=== PATIENT | female | born 1955 | race Caucasian/White ===

== ENCOUNTER 2016-05-06 18:29 | Emergency (ER) | payer OTHER ==
[~2016-05-06] VITALS: Wt 52.2 kg
[~2016-05-06 18:29] MED LIST: ACYCLOVIR400 MG PO; ADALAT CC30 MG PO; ADOXA100 MG PO; ALBUTEROL2.5 MG/0.5 INH; AMBIEN10 MG PO; ANAPROX DS550 MG PO; ASPIRIN ADULT L81 M1 PO; AUGMENTIN 875 M1 TAB PO; AUGMENTIN 875875 MG PO; BACTROBAN OINT22 GM PO; BONIVA150 MG PO; CELEBREX200 MG PO; CELEXA10 MG PO; CELEXA20 MG PO; CLARITIN10 MG PO; CLEOCIN150 MG PO; COMBIVENT1 ARO IH; DARVOCET N 1001 TAB PO; DAYPRO600 M1 PO; DILANTIN100 MG PO; DUONEB 3 MG/3 ML3 M1 INH; DURAGESIC50 MCG/HR; FLAGYL500 MG PO; FLEXERIL10 MG PO; FLEXERIL5 MG PO; HYDROCODONE BIT1 T11 PO; IBU800 MG PO; INTRON A IJ; INTRON A SC; K-DUR 20MEQ20 MEQ PO; K-DUR20 MEQ PO; KEFLEX500 MG PO; KLONOPIN0.5 MG; KLONOPIN0.5 MG PO; KLONOPIN1 MG PO; LAMICTAL25 MG PO; LEXAPRO10 MG PO; LEXAPRO20 MG PO; LIDODERM 5% PATC1 EA ID; LOMOTIL 0.025 M1 TA1 PO; MACROBID100 M1 PO; MEDROL DOSEPAK4 MG PO; MEGACE 40400 MG/10 PO; MEGACE40 MG/ML PO; MORPHINE SULFATE PO; MOTRIN800 MG PO; MS CONTIN15 MG PO; MS CONTIN30 MG PO; MYCOLOG CREAM 115 GM T; Miralax Powder255 GM PO; Motrin,Rufen800 MG PO; NAPROSYN500 MG PO; NEURONTIN300 MG PO; NEURONTIN600 MG PO; OYSCO 500 + D 51 TAB PO; Orphenadrine C100 MG PO; PEN-VEE K500 MG PO; PENICILLIN VK500 MG PO; PERCOCET 325 MG1 TA2 PO; PERCOCET 325 MG1 TA3 PO; PERCOCET 325 MG1 TA7 PO; PERCOCET 325 MG1 TAB PO; PREDNISONE10 MG PO; PREDNISONE20 MG PO; PROAIR HFA0.09 MG/AC IH; PROTONIX40 MG PO; PYRIDIUM200 M1 PO; Peridex 473 ML473 ML PO; Phenergan25 MG PO; ROBITUSSIN AC 10 MG/ PO; SYMBICORT1 AE1 IH; TORADOL10 MG PO; TRAMADOL HCL50 MG PO; VALIUM10 MG PO; VIBRAMYCIN100 MG PO; VICODIN 5/500 505 MG PO; VISTARIL25 M1 PO; XANAX0.5 MG PO; XANAX1 MG PO; ZOFRAN ODT4 MG PO; ZOFRAN ODT4 MG SL; Zofran4 MG PO; [UNRECOGNIZED DRUG - OTHER] IM
[2016-05-06 19:13] LABS: BASO % 0.5 % (0.0-1.0); EOS # 0.1 10*3/uL (0.0-0.4); EOS % 0.9 % (1.0-4.0); HEMATOCRIT 35.3 % (37.0-47.0); HEMOGLOBIN 11.8 g/dl (12.0-16.0); LYMPH # 1.9 10*3/uL (1.3-4.4); LYMPH % 29.9 % (27.0-41.0); MEAN CELL VOLUME 92.9 fl (81.0-99.0); MEAN CORPUSCULAR HGB 31.1 pg (27.0-31.0); MEAN CORPUSCULAR HGB CONC 33.4 g/dl (33.0-37.0); MEAN PLATELET VOLUME 9.8 fl (9.6-12.3); MONO # 0.5 10*3/uL (0.1-1.0); MONO % 7.5 % (3.0-9.0); NEUT # 3.9 10*3/uL (2.3-7.9); PLATELET COUNT AUTOMATED 200 10*3/uL (130-400); RED CELL DISTRI WIDTH 13.2 % (0-14.5); WHITE BLOOD COUNT 6.4 10*3/uL (4.8-10.8)
[2016-05-06 19:30] LABS: ALBUMIN 3.7 gm/dl (3.1-4.5); ALKALINE PHOSPHATASE 54 U/L (45-117); BILIRUBIN, TOTAL 0.4 mg/dl (0.2-1.0); BUN 11 mg/dl (7-24); CARBON DIOXIDE 25 mmol/L (21-32); CHLORIDE 105 mmol/L (98-107); EST GLOM FILT AFRICAN AMERICAN > 60 ml/min; GLUCOSE 95 mg/dL (65-99); POTASSIUM 3.6 mmol/L (3.5-5.1); SGOT/AST 16 IU/L (3-35); SGPT/ALT 19 U/L (12-78); SODIUM 140 mmol/L (136-145); TOTAL PROTEIN 7.2 gm/dL (6.4-8.2); TROPONIN I 0.018 ng/ml (<0.5)
[2016-05-06 19:33] LABS: C-REACTIVE PROTEIN < 0.29 MG/DL (0-0.3)
[2016-05-06 20:26] VITALS: BP 162/77
[2016-05-06] MEDS ORDERED: MINIPRESS1 M1 PO (20:29)
[2016-05-06] MEDS ORDERED: CYCLOBENZAPRINE10 MG PO (20:29)
[2016-05-31] MEDS ORDERED: CLINDAMYCIN HC300 MG PO (18:02)
[2016-05-31] MEDS ORDERED: HYDROCODONE BIT1 T11 PO (18:18)
== END 2016-05-06 21:52 | disposition home or self-care (01) ==
LOC: ED 18:29
PROVIDERS: Emergency Medicine Emergency Medical Services
DX: R13.10 Dysphagia, unspecified (principal); F41.9 Anxiety disorder, unspecified; J44.9 Chronic obstructive pulmonary disease, unspecified; F32.9 Major depressive disorder, single episode, unspecified; M81.0 Age-related osteoporosis without current pathological fracture; F17.200 Nicotine dependence, unspecified, uncomplicated; Z98.890 Other specified postprocedural states; Z90.49 Acquired absence of other specified parts of digestive tract; Z90.710 Acquired absence of both cervix and uterus; Z87.19 Personal history of other diseases of the digestive system; Z86.19 Personal history of other infectious and parasitic diseases; Z91.012 Allergy to eggs; Z91.041 Radiographic dye allergy status; Z88.1 Allergy status to other antibiotic agents; Z88.6 Allergy status to analgesic agent; Z88.8 Allergy status to other drugs, medicaments and biological substances; Z85.818 Personal history of malignant neoplasm of other sites of lip, oral cavity, and pharynx; Z88.7 Allergy status to serum and vaccine

== ENCOUNTER → 2016-05-10 | Outpatient (CLI) | payer OTHER ==
[~2016-05-10] MED LIST changes: +CLINDAMYCIN HC300 MG PO; +CYCLOBENZAPRINE10 MG PO; +MINIPRESS1 M1 PO
[2016-05-10 12:58] LABS: BASO % 0.4 % (0.0-1.0); EOS # 0.1 10*3/uL (0.0-0.4); EOS % 1.8 % (1.0-4.0); HEMATOCRIT 37.2 % (37.0-47.0); HEMOGLOBIN 12.4 g/dl (12.0-16.0); LYMPH # 1.5 10*3/uL (1.3-4.4); LYMPH % 30.3 % (27.0-41.0); MEAN CELL VOLUME 92.3 fl (81.0-99.0); MEAN CORPUSCULAR HGB 30.8 pg (27.0-31.0); MEAN CORPUSCULAR HGB CONC 33.3 g/dl (33.0-37.0); MEAN PLATELET VOLUME 9.8 fl (9.6-12.3); MONO # 0.7 10*3/uL (0.1-1.0); MONO % 13.1 % (3.0-9.0); NEUT # 2.7 10*3/uL (2.3-7.9); NEUT % 54.2 % (47.0-73.0); PLATELET COUNT AUTOMATED 247 10*3/uL (130-400); RED BLOOD COUNT 4.03 10*6/uL (4.10-5.10); RED CELL DISTRI WIDTH 13.3 % (0-14.5)
[2016-05-10 13:34] LABS: ALBUMIN 3.6 gm/dl (3.1-4.5); ALKALINE PHOSPHATASE 60 U/L (45-117); BILIRUBIN, TOTAL 0.2 mg/dl (0.2-1.0); BUN 10 mg/dl (7-24); CARBON DIOXIDE 28 mmol/L (21-32); CHLORIDE 106 mmol/L (98-107); CHOLESTEROL 133 mg/dL (<200); EST GLOM FILT AFRICAN AMERICAN > 60 ml/min; GLUCOSE 98 mg/dL (65-99); HDL CHOLESTEROL 72 mg/dl (40-60); LDL CHOLESTEROL 31 mg/dL (9-159); POTASSIUM 3.8 mmol/L (3.5-5.1); SGOT/AST 21 IU/L (3-35); SGPT/ALT 19 U/L (12-78); SODIUM 140 mmol/L (136-145); THYROID STIM HORMONE (HS) 0.774 uIU/ml (0.358-4.75); TOTAL PROTEIN 6.8 gm/dL (6.4-8.2); TRIGLYCERIDES 148 mg/dl (<150); VLDL CHOLESTEROL 30 mg/dL (6-40)
== END | disposition home or self-care (01) ==
LOC: LAB 12:14
PROVIDERS: Internal Medicine
DX: C43.59 Malignant melanoma of other part of trunk (principal); B18.2 Chronic viral hepatitis C; I10 Essential (primary) hypertension; F31.32 Bipolar disorder, current episode depressed, moderate

== ENCOUNTER → 2016-08-15 | Outpatient (CLI) | payer OTHER | END | disposition home or self-care (01) | LOC: MRI 08:41 | DX: M48.07 Spinal stenosis, lumbosacral region (principal); M51.27 Other intervertebral disc displacement, lumbosacral region; M12.88 Other specific arthropathies, not elsewhere classified, other specified site; M54.16 Radiculopathy, lumbar region; Z85.820 Personal history of malignant melanoma of skin ==

== ENCOUNTER 2016-08-18 15:47 | Emergency (ER) | payer OTHER ==
[~2016-08-18] VITALS: Ht 160 cm; Wt 55.3 kg
[2016-08-18 16:00] VITALS: BP 129/73
[2016-08-18] MEDS ORDERED: ROBITUSSIN AC 110 ML PO (16:16)
[2016-08-18] MEDS ORDERED: PREDNISONE10 MG PO (16:16)
[2016-08-18] MEDS ORDERED: CLARITIN10 MG PO (16:16)
[2016-08-18] MEDS ORDERED: FLONASE ALLERG9.9 ML NAS (16:16)
== END 2016-08-18 17:02 | disposition home or self-care (01) ==
LOC: ED 15:47
DX: B34.9 Viral infection, unspecified (principal); R03.0 Elevated blood-pressure reading, without diagnosis of hypertension; F12.10 Cannabis abuse, uncomplicated; F17.200 Nicotine dependence, unspecified, uncomplicated; F32.9 Major depressive disorder, single episode, unspecified; Z90.49 Acquired absence of other specified parts of digestive tract; F41.9 Anxiety disorder, unspecified; Z88.1 Allergy status to other antibiotic agents; Z88.7 Allergy status to serum and vaccine; Z91.012 Allergy to eggs; Z91.041 Radiographic dye allergy status

== ENCOUNTER 2016-09-08 10:15 | Emergency (ER) | payer OTHER ==
[~2016-09-08] VITALS: Wt 54.4 kg
[~2016-09-08 10:15] MED LIST changes: +FLONASE ALLERG9.9 ML NAS; +ROBITUSSIN AC 110 ML PO
[2016-09-08 10:23] VITALS: BP 123/73
[2016-09-08] MEDS ORDERED: Motrin,Rufen800 MG PO (12:24)
== END 2016-09-08 12:28 | disposition home or self-care (01) ==
LOC: ED 10:15
DX: S46.912A Strain of unspecified muscle, fascia and tendon at shoulder and upper arm level, left arm, initial encounter (principal); F17.200 Nicotine dependence, unspecified, uncomplicated; F41.9 Anxiety disorder, unspecified; F32.9 Major depressive disorder, single episode, unspecified; G40.909 Epilepsy, unspecified, not intractable, without status epilepticus; Z90.49 Acquired absence of other specified parts of digestive tract; Z90.710 Acquired absence of both cervix and uterus; Z98.890 Other specified postprocedural states; Z79.899 Other long term (current) drug therapy; Z91.041 Radiographic dye allergy status; Z91.012 Allergy to eggs; Z88.1 Allergy status to other antibiotic agents; Z88.7 Allergy status to serum and vaccine; W19.XXXA Unspecified fall, initial encounter; Y93.89 Activity, other specified; Y92.89 Other specified places as the place of occurrence of the external cause; Y99.9 Unspecified external cause status

== ENCOUNTER 2016-11-01 14:33 | Emergency (ER) | payer OTHER ==
[~2016-11-01] VITALS: Ht 160 cm
[2016-11-01 15:17] LABS: BILIRUBIN NEGATIVE (NEGATIVE); BLOOD NEGATIVE (NEGATIVE); CLARITY CLEAR (CLEAR); COLOR YELLOW (YELLOW); GLUCOSE NEGATIVE (NEGATIVE); KETONE NEGATIVE (NEGATIVE); LEUKO ESTERASE TRACE (NEGATIVE); NITRITE NEGATIVE (NEGATIVE); PROTEIN NEGATIVE (NEGATIVE); SPECIFIC GRAVITY 1.015 (1.005-1.030); UROBILINOGEN 0.2 E.U./dl (0.2-1.0)
[2016-11-01 15:19] LABS: BASO % 0.3 % (0.0-1.0); EOS # 0.1 10*3/uL (0.0-0.4); EOS % 1.2 % (1.0-4.0); HEMATOCRIT 41.8 % (37.0-47.0); HEMOGLOBIN 13.9 g/dl (12.0-16.0); LYMPH # 1.9 10*3/uL (1.3-4.4); LYMPH % 28.6 % (27.0-41.0); MEAN CELL VOLUME 90.5 fl (81.0-99.0); MEAN CORPUSCULAR HGB 30.1 pg (27.0-31.0); MEAN CORPUSCULAR HGB CONC 33.3 g/dl (33.0-37.0); MEAN PLATELET VOLUME 10.4 fl (9.6-12.3); MONO # 0.6 10*3/uL (0.1-1.0); MONO % 8.1 % (3.0-9.0); NEUT # 4.2 10*3/uL (2.3-7.9); NEUT % 61.5 % (47.0-73.0); PLATELET COUNT AUTOMATED 238 10*3/uL (130-400); RED BLOOD COUNT 4.62 10*6/uL (4.10-5.10); RED CELL DISTRI WIDTH 13.2 % (0-14.5); WHITE BLOOD COUNT 6.8 10*3/uL (4.8-10.8)
[2016-11-01 15:23] LABS: URINE AMPHETAMINES < 1000 (1000ng/ml); URINE BARBITURATES < 200 (200ng/ml); URINE COCAINE > 300 (300ng/ml)
[2016-11-01 15:27] LABS: INTERNATIONAL NORM RATIO 1.1 (2.0-3.5); PROTHROMBIN TIME 11.4 SECONDS (9.0-12.4)
[2016-11-01 15:31] VITALS: BP 151/71
[2016-11-01 15:35] LABS: ALBUMIN 3.8 gm/dl (3.1-4.5); ALKALINE PHOSPHATASE 62 U/L (45-117); BILIRUBIN, TOTAL 0.3 mg/dl (0.2-1.0); BUN 15 mg/dl (7-24); CARBON DIOXIDE 28 mmol/L (21-32); CHLORIDE 104 mmol/L (98-107); EST GLOM FILT AFRICAN AMERICAN > 60 ml/min; GLUCOSE 94 mg/dL (65-99); MAGNESIUM 2.2 mg/dL (1.5-2.1); POTASSIUM 3.3 mmol/L (3.5-5.1); SGOT/AST 14 IU/L (3-35); SGPT/ALT 16 U/L (12-78); SODIUM 142 mmol/L (136-145); TOTAL PROTEIN 6.9 gm/dL (6.4-8.2); TROPONIN I 0.021 ng/ml (<0.045)
[2016-11-01 15:37] LABS: RBC 0-2 rbc/hpf (0-2)
[2016-11-01 15:38] LABS: BACTERIA 1+; URINE REFLEX COMMENT YES (NO)
== END 2016-11-01 15:57 | disposition short-term general hospital (02) ==
LOC: ED 14:33
PROVIDERS: Nurse Practitioner Family
DX: I21.3 ST elevation (STEMI) myocardial infarction of unspecified site (principal); M81.0 Age-related osteoporosis without current pathological fracture; J44.9 Chronic obstructive pulmonary disease, unspecified; G40.909 Epilepsy, unspecified, not intractable, without status epilepticus; F14.10 Cocaine abuse, uncomplicated; F12.10 Cannabis abuse, uncomplicated; F17.200 Nicotine dependence, unspecified, uncomplicated; Z91.041 Radiographic dye allergy status; Z91.012 Allergy to eggs; Z88.7 Allergy status to serum and vaccine; Z88.6 Allergy status to analgesic agent; Z88.1 Allergy status to other antibiotic agents; Z88.8 Allergy status to other drugs, medicaments and biological substances; Z79.899 Other long term (current) drug therapy; Z86.19 Personal history of other infectious and parasitic diseases; Z90.49 Acquired absence of other specified parts of digestive tract; Z90.710 Acquired absence of both cervix and uterus; Z98.890 Other specified postprocedural states

== ENCOUNTER 2016-12-04 18:04 | Emergency (ER) | payer OTHER ==
[~2016-12-04] VITALS: Ht 160 cm; Wt 54.4 kg
[2016-12-04 18:27] LABS: BASO # 0.1 10*3/uL (0.0-0.1); BASO % 0.7 % (0.0-1.0); EOS # 0.1 10*3/uL (0.0-0.4); EOS % 1.1 % (1.0-4.0); HEMATOCRIT 48.5 % (37.0-47.0); HEMOGLOBIN 16.1 g/dl (12.0-16.0); LYMPH # 2.1 10*3/uL (1.3-4.4); LYMPH % 30.4 % (27.0-41.0); MEAN CELL VOLUME 91.2 fl (81.0-99.0); MEAN CORPUSCULAR HGB 30.3 pg (27.0-31.0); MEAN CORPUSCULAR HGB CONC 33.2 g/dl (33.0-37.0); MEAN PLATELET VOLUME 10.2 fl (9.6-12.3); MONO # 0.5 10*3/uL (0.1-1.0); MONO % 7.2 % (3.0-9.0); NEUT # 4.3 10*3/uL (2.3-7.9); NEUT % 60.5 % (47.0-73.0); PLATELET COUNT AUTOMATED 213 10*3/uL (130-400); RED BLOOD COUNT 5.32 10*6/uL (4.10-5.10); RED CELL DISTRI WIDTH 13.2 % (0-14.5)
[2016-12-04 18:36] LABS: INTERNATIONAL NORM RATIO 1.1 (2.0-3.5); PROTHROMBIN TIME 11.4 SECONDS (9.0-12.4)
[2016-12-04 18:44] LABS: ALBUMIN 4.1 gm/dl (3.1-4.5); ALKALINE PHOSPHATASE 76 U/L (45-117); BILIRUBIN, TOTAL 0.4 mg/dl (0.2-1.0); BUN 12 mg/dl (7-24); CARBON DIOXIDE 25 mmol/L (21-32); CHLORIDE 105 mmol/L (98-107); EST GLOM FILT AFRICAN AMERICAN > 60 ml/min; GLUCOSE 88 mg/dL (65-99); MAGNESIUM 2.1 mg/dL (1.5-2.1); POTASSIUM 3.5 mmol/L (3.5-5.1); SGOT/AST 13 IU/L (3-35); SGPT/ALT 23 U/L (12-78); SODIUM 140 mmol/L (136-145); TOTAL PROTEIN 8.2 gm/dL (6.4-8.2)
[2016-12-04 18:45] LABS: TROPONIN I < 0.015 ng/ml (<0.045)
[2016-12-04 21:20] VITALS: BP 141/65
== END 2016-12-04 21:14 | disposition short-term general hospital (02) ==
LOC: ED 18:04
PROVIDERS: Emergency Medicine
DX: R07.89 Other chest pain (principal); F14.10 Cocaine abuse, uncomplicated; F12.10 Cannabis abuse, uncomplicated; Z90.49 Acquired absence of other specified parts of digestive tract; Z98.890 Other specified postprocedural states; Z90.710 Acquired absence of both cervix and uterus; Z79.899 Other long term (current) drug therapy; Z91.012 Allergy to eggs; Z88.7 Allergy status to serum and vaccine; Z88.1 Allergy status to other antibiotic agents; Z91.041 Radiographic dye allergy status

== ENCOUNTER 2017-05-07 02:43 | Emergency (ER) | payer MEDICAID ==
[2017-05-07] VITALS (12 sets, daily range): BP systolic 90–119; BP diastolic 36–58
[~2017-05-07] VITALS: Wt 59.0 kg
[2017-05-07 02:58] LABS: BASO % 0.5 % (0.0-1.0); EOS # 0.1 10*3/uL (0.0-0.4); EOS % 0.6 % (1.0-4.0); HEMATOCRIT 42.9 % (37.0-47.0); HEMOGLOBIN 14.1 g/dl (12.0-16.0); LYMPH # 2.1 10*3/uL (1.3-4.4); LYMPH % 24.2 % (27.0-41.0); MEAN CELL VOLUME 90.7 fl (81.0-99.0); MEAN CORPUSCULAR HGB 29.8 pg (27.0-31.0); MEAN CORPUSCULAR HGB CONC 32.9 g/dl (33.0-37.0); MONO # 0.7 10*3/uL (0.1-1.0); MONO % 7.9 % (3.0-9.0); NEUT # 5.8 10*3/uL (2.3-7.9); NEUT % 66.6 % (47.0-73.0); PLATELET COUNT AUTOMATED 231 10*3/uL (130-400); RED BLOOD COUNT 4.73 10*6/uL (4.10-5.10); RED CELL DISTRI WIDTH 13.6 % (0-14.5); WHITE BLOOD COUNT 8.6 10*3/uL (4.8-10.8)
[2017-05-07 03:08] LABS: ACT PARTIAL THROMBO TIME 27.5 SECONDS (20.8-31.5)
[2017-05-07 03:21] LABS: ALBUMIN 3.6 gm/dl (3.1-4.5); ALKALINE PHOSPHATASE 57 U/L (45-117); BUN 20 mg/dl (7-24); CHLORIDE 105 mmol/L (98-107); POTASSIUM 3.5 mmol/L (3.5-5.1); SGOT/AST 14 IU/L (3-35); SGPT/ALT 18 U/L (12-78); SODIUM 140 mmol/L (136-145); TOTAL PROTEIN 6.9 gm/dL (6.4-8.2)
[2017-05-07 03:22] LABS: TROPONIN I 0.019 ng/ml (<0.045)
[2017-05-07 04:28] LABS: BILIRUBIN NEGATIVE (NEGATIVE); BLOOD NEGATIVE (NEGATIVE); CLARITY CLEAR (CLEAR); COLOR YELLOW (YELLOW); GLUCOSE NEGATIVE (NEGATIVE); KETONE NEGATIVE (NEGATIVE); LEUKO ESTERASE NEGATIVE (NEGATIVE); NITRITE NEGATIVE (NEGATIVE); SPECIFIC GRAVITY 1.025 (1.005-1.030); UROBILINOGEN 0.2 E.U./dl (0.2-1.0)
[2017-05-07 04:36] LABS: URINE AMPHETAMINES < 1000 (1000ng/ml); URINE BARBITURATES < 200 (200ng/ml); URINE BENZODIAZEPINES < 200 (200ng/ml); URINE CANNABINOIDS (THC) > 50 (50ng/ml); URINE COCAINE > 300 (300ng/ml); URINE METHADONE < 300 (300ng/ml); URINE OPIATES < 300 (300ng/ml)
[2017-05-07 04:43] LABS: URINE PHENCYCLIDINE < 25 (25ng/ml)
== END 2017-05-07 09:47 | disposition short-term general hospital (02) ==
LOC: ED 02:43 → EDHOLD 05:08 → ED 05:08 → ICCU 05:08 → EDHOLD 05:18 → ED 09:47
PROVIDERS: Student in an Organized Health Care Education/Training Program
DX: R07.9 Chest pain, unspecified (principal); I95.9 Hypotension, unspecified; F41.9 Anxiety disorder, unspecified; J44.1 Chronic obstructive pulmonary disease with (acute) exacerbation; F32.9 Major depressive disorder, single episode, unspecified; Z86.19 Personal history of other infectious and parasitic diseases; G40.909 Epilepsy, unspecified, not intractable, without status epilepticus; F12.10 Cannabis abuse, uncomplicated; F17.200 Nicotine dependence, unspecified, uncomplicated; Z90.49 Acquired absence of other specified parts of digestive tract; Z90.710 Acquired absence of both cervix and uterus; Z91.041 Radiographic dye allergy status; Z91.012 Allergy to eggs; Z88.1 Allergy status to other antibiotic agents; Z88.5 Allergy status to narcotic agent; Z88.8 Allergy status to other drugs, medicaments and biological substances; Z79.899 Other long term (current) drug therapy

== ENCOUNTER 2017-06-03 18:36 | Emergency (ER) | payer MEDICAID ==
[~2017-06-03] VITALS: Wt 59.0 kg
[2017-06-03 18:52] VITALS: BP 151/79
== END 2017-06-03 20:34 | disposition home or self-care (01) ==
LOC: ED 18:36
DX: S90.31XA Contusion of right foot, initial encounter (principal); F17.200 Nicotine dependence, unspecified, uncomplicated; Z91.041 Radiographic dye allergy status; Z91.012 Allergy to eggs; Z88.7 Allergy status to serum and vaccine; Z88.6 Allergy status to analgesic agent; Z88.1 Allergy status to other antibiotic agents; Z79.899 Other long term (current) drug therapy; W22.8XXA Striking against or struck by other objects, initial encounter; Y93.89 Activity, other specified; Y92.89 Other specified places as the place of occurrence of the external cause; Y99.8 Other external cause status

== ENCOUNTER → 2018-01-07 | Outpatient (CLI) | payer OTHER ==
[~2018-01-07] MED LIST changes: +'CLONIDINE0.1 MG PO; +AMITRIPTYLINE25 MG PO; +AVPAK EXTENDED100 M1 PO; +PERCOCET 5-3251 EACH PO; +Percocet 325 MG1 TAB PO; +REXULTI4 MG PO; +VITAMIN D5000 UNI1 PO; +ZOFRAN4 MG PO
== END | disposition home or self-care (01) ==
LOC: ORTHO 00:16
DX: S52.021D Displaced fracture of olecranon process without intraarticular extension of right ulna, subsequent encounter for closed fracture with routine healing (principal); M19.031 Primary osteoarthritis, right wrist; X58.XXXD Exposure to other specified factors, subsequent encounter; Z98.890 Other specified postprocedural states

== ENCOUNTER → 2018-01-15 | Outpatient (CLI) | payer OTHER | END | disposition home or self-care (01) | LOC: ORTHO 00:20 | DX: Z47.89 Encounter for other orthopedic aftercare (principal); S52.021D Displaced fracture of olecranon process without intraarticular extension of right ulna, subsequent encounter for closed fracture with routine healing; X58.XXXD Exposure to other specified factors, subsequent encounter ==

== ENCOUNTER → 2018-01-22 | Outpatient (CLI) | payer OTHER | END | disposition home or self-care (01) | LOC: ORTHO 12:19 | DX: S52.021D Displaced fracture of olecranon process without intraarticular extension of right ulna, subsequent encounter for closed fracture with routine healing (principal); X58.XXXD Exposure to other specified factors, subsequent encounter ==

== ENCOUNTER 2018-01-25 13:11 | Emergency (ER) | payer OTHER ==
[~2018-01-25 13:11] MED LIST changes: -PERCOCET 5-3251 EACH PO
[2018-01-25 13:46] LABS: BASO % 0.6 % (0.0-1.0); EOS # 0.2 10*3/uL (0.0-0.4); EOS % 2.3 % (1.0-4.0); HEMATOCRIT 36.4 % (37.0-47.0); HEMOGLOBIN 12.1 g/dl (12.0-16.0); LYMPH % 30.7 % (27.0-41.0); MEAN CELL VOLUME 94.1 fl (81.0-99.0); MEAN CORPUSCULAR HGB 31.3 pg (27.0-31.0); MEAN CORPUSCULAR HGB CONC 33.2 g/dl (33.0-37.0); MEAN PLATELET VOLUME 9.4 fl (9.6-12.3); MONO # 0.5 10*3/uL (0.1-1.0); MONO % 7.6 % (3.0-9.0); NEUT # 3.8 10*3/uL (2.3-7.9); NEUT % 58.5 % (47.0-73.0); PLATELET COUNT AUTOMATED 214 10*3/uL (130-400); RED BLOOD COUNT 3.87 10*6/uL (4.10-5.10); WHITE BLOOD COUNT 6.6 10*3/uL (4.8-10.8)
[2018-01-25 13:56] LABS: ACT PARTIAL THROMBO TIME 25.6 SECONDS (20.8-31.5)
[2018-01-25 13:57] LABS: BUN 16 mg/dl (7-24); CHLORIDE 107 mmol/L (98-107); CREATININE 0.66 mg/dL (0.55-1.02); POTASSIUM 3.8 mmol/L (3.5-5.1); SODIUM 140 mmol/L (136-145)
[2018-01-25] MEDS ORDERED: NAPROSYN500 MG PO (14:43)
[2018-03-08] MEDS ORDERED: PERCOCET 5-3251 EACH PO (09:31)
== END 2018-01-25 14:49 | disposition home or self-care (01) ==
LOC: ED 13:11
PROVIDERS: Emergency Medicine
DX: M79.89 Other specified soft tissue disorders (principal); M79.601 Pain in right arm; I25.10 Atherosclerotic heart disease of native coronary artery without angina pectoris; J44.9 Chronic obstructive pulmonary disease, unspecified; E66.3 Overweight; I25.2 Old myocardial infarction; F17.200 Nicotine dependence, unspecified, uncomplicated; Z68.25 Body mass index [BMI] 25.0-25.9, adult; Z91.041 Radiographic dye allergy status; Z91.012 Allergy to eggs; Z88.8 Allergy status to other drugs, medicaments and biological substances; Z88.6 Allergy status to analgesic agent; Z88.1 Allergy status to other antibiotic agents; Z79.899 Other long term (current) drug therapy; Z90.710 Acquired absence of both cervix and uterus; Z90.49 Acquired absence of other specified parts of digestive tract

== ENCOUNTER → 2018-02-11 | Outpatient (CLI) | payer OTHER ==
[~2018-02-11] MED LIST changes: +PERCOCET 5-3251 EACH PO
== END | disposition home or self-care (01) ==
LOC: ORTHO 01:02
DX: S52.021D Displaced fracture of olecranon process without intraarticular extension of right ulna, subsequent encounter for closed fracture with routine healing (principal); X58.XXXD Exposure to other specified factors, subsequent encounter

== ENCOUNTER → 2018-02-26 | Outpatient (CLI) | payer OTHER | END | disposition home or self-care (01) | LOC: ORTHO 01:45 | DX: S52.021D Displaced fracture of olecranon process without intraarticular extension of right ulna, subsequent encounter for closed fracture with routine healing (principal); M19.021 Primary osteoarthritis, right elbow; X58.XXXD Exposure to other specified factors, subsequent encounter ==

== ENCOUNTER 2018-03-21 11:14 | Emergency (ER) | payer OTHER ==
[2018-03-21 11:16] VITALS: BP 128/57
[2018-03-21] MEDS ORDERED: NAPROSYN500 MG PO (11:46)
== END 2018-03-21 12:41 | disposition home or self-care (01) ==
LOC: ED 11:14
DX: S59.901D Unspecified injury of right elbow, subsequent encounter (principal); R03.0 Elevated blood-pressure reading, without diagnosis of hypertension; I25.10 Atherosclerotic heart disease of native coronary artery without angina pectoris; J44.9 Chronic obstructive pulmonary disease, unspecified; M81.0 Age-related osteoporosis without current pathological fracture; I25.2 Old myocardial infarction; F17.200 Nicotine dependence, unspecified, uncomplicated; Z90.49 Acquired absence of other specified parts of digestive tract; Z90.710 Acquired absence of both cervix and uterus; Z91.041 Radiographic dye allergy status; Z91.012 Allergy to eggs; Z88.8 Allergy status to other drugs, medicaments and biological substances; Z88.7 Allergy status to serum and vaccine; Z88.6 Allergy status to analgesic agent; Z88.1 Allergy status to other antibiotic agents; Z79.899 Other long term (current) drug therapy; W22.8XXD Striking against or struck by other objects, subsequent encounter

== ENCOUNTER → 2018-05-13 | Outpatient (CLI) | payer OTHER | END | disposition home or self-care (01) | LOC: RAD 12:52 | DX: S52.021A Displaced fracture of olecranon process without intraarticular extension of right ulna, initial encounter for closed fracture (principal); M19.021 Primary osteoarthritis, right elbow; X58.XXXA Exposure to other specified factors, initial encounter; W19.XXXA Unspecified fall, initial encounter; Y93.89 Activity, other specified; Y92.89 Other specified places as the place of occurrence of the external cause; Y99.8 Other external cause status ==

== ENCOUNTER → 2018-06-12 | Outpatient (CLI) | payer OTHER ==
[~2018-06-12] MED LIST changes: +LIPITOR40 MG PO; +NATURE'S BLEND F1 MG PO; +SEPTDS PO; +VITAMIN D22000 UNIT PO
== END | disposition home or self-care (01) ==
LOC: LAB 09:13
DX: G40.909 Epilepsy, unspecified, not intractable, without status epilepticus (principal)

== ENCOUNTER → 2018-07-19 | Emergency (ER) | payer OTHER ==
[~2018-07-19] VITALS: Ht 160 cm; Wt 71.7 kg
== END ==
LOC: ED 22:23
DX: S41.151A Open bite of right upper arm, initial encounter (principal); I25.10 Atherosclerotic heart disease of native coronary artery without angina pectoris; J44.9 Chronic obstructive pulmonary disease, unspecified; M81.0 Age-related osteoporosis without current pathological fracture; G40.909 Epilepsy, unspecified, not intractable, without status epilepticus; F17.200 Nicotine dependence, unspecified, uncomplicated; Z91.041 Radiographic dye allergy status; Z88.8 Allergy status to other drugs, medicaments and biological substances; Z88.6 Allergy status to analgesic agent; Z88.1 Allergy status to other antibiotic agents; Z91.012 Allergy to eggs; Z79.899 Other long term (current) drug therapy; W54.0XXA Bitten by dog, initial encounter; Y93.89 Activity, other specified; Y92.89 Other specified places as the place of occurrence of the external cause; Y99.8 Other external cause status

== ENCOUNTER → 2018-08-05 | Outpatient (CLI) | payer OTHER | END | disposition home or self-care (01) | LOC: ORTHO 02:02 | DX: S52.021D Displaced fracture of olecranon process without intraarticular extension of right ulna, subsequent encounter for closed fracture with routine healing (principal); X58.XXXD Exposure to other specified factors, subsequent encounter ==

== ENCOUNTER → 2018-09-09 | Outpatient (CLI) | payer OTHER | END | disposition home or self-care (01) | LOC: ORTHO 07:34 | DX: M25.512 Pain in left shoulder (principal) ==

== ENCOUNTER → 2018-10-19 | Outpatient (CLI) | payer OTHER | END | disposition home or self-care (01) | LOC: MRI 12:45 | DX: M75.112 Incomplete rotator cuff tear or rupture of left shoulder, not specified as traumatic (principal); M19.012 Primary osteoarthritis, left shoulder; M25.412 Effusion, left shoulder ==

== ENCOUNTER 2018-10-27 02:37 | Emergency (ER) | payer OTHER ==
[~2018-10-27] VITALS: Ht 160 cm; Wt 71.7 kg
[~2018-10-27 02:37] MED LIST changes: -LIPITOR40 MG PO; -SEPTDS PO; -VITAMIN D22000 UNIT PO
[2018-10-27 02:40] VITALS: BP 125/62
[2018-10-27] MEDS ORDERED: IBU800 MG PO (02:53)
[2018-10-27] MEDS ORDERED: CLINDAMYCIN HC300 MG PO (02:53)
[2018-11-19] MEDS ORDERED: AMITRIPTYLINE25 MG PO (13:44)
[2018-11-23] MEDS ORDERED: SEPTDS PO (15:16)
[2018-11-26] MEDS ORDERED: LIPITOR40 MG PO (15:15)
[2018-11-26] MEDS ORDERED: NEURONTIN600 MG PO (15:16)
[2018-11-27] MEDS ORDERED: VITAMIN D22000 UNIT PO (16:25)
[2018-11-27] MEDS ORDERED: NATURE'S BLEND F1 MG PO (16:25)
[2018-12-03] MEDS ORDERED: ZOFRAN4 MG PO (12:07)
[2018-12-03] MEDS ORDERED: PERCOCET 5-3251 EACH PO (12:08)
== END 2018-10-27 03:05 | disposition home or self-care (01) ==
LOC: ED 02:37
DX: S02.5XXA Fracture of tooth (traumatic), initial encounter for closed fracture (principal); I25.10 Atherosclerotic heart disease of native coronary artery without angina pectoris; J44.9 Chronic obstructive pulmonary disease, unspecified; M81.0 Age-related osteoporosis without current pathological fracture; G40.909 Epilepsy, unspecified, not intractable, without status epilepticus; I25.2 Old myocardial infarction; F17.200 Nicotine dependence, unspecified, uncomplicated; Z91.041 Radiographic dye allergy status; Z91.012 Allergy to eggs; Z88.8 Allergy status to other drugs, medicaments and biological substances; Z88.7 Allergy status to serum and vaccine; Z88.6 Allergy status to analgesic agent; Z79.2 Long term (current) use of antibiotics; Z79.899 Other long term (current) drug therapy; Z90.710 Acquired absence of both cervix and uterus; Z90.49 Acquired absence of other specified parts of digestive tract; X58.XXXA Exposure to other specified factors, initial encounter; Y93.89 Activity, other specified; Y92.89 Other specified places as the place of occurrence of the external cause; Y99.8 Other external cause status

== ENCOUNTER 2018-11-01 20:32 | Inpatient (IN) | payer OTHER ==
[~2018-11-01] VITALS: Ht 160 cm; Wt 67.1 kg
--- NOTE | ~2018-11-01 | EKG ---
[place], [place] ELECTROCARDIOGRAM REPORT NAME: DUKE LOOMIS UNIT #: [id number] ROOM: [facility] DOCTOR: LAVELL DRAFT REPORT BIRTHDATE: [birth year] [facility] Test Date: 2018-11-01 Test Time: 20:35:40 Pat Name: DUKE LOOMIS Department: ER Room: [facility] Gender: F Manager Of Disaster Recovery: : 1955 Requested By: VIPIN DE LA TORRE Order Number: [id number] Reading MD: Timoteo Cheng MD Measurements Intervals [place] Rate: 63 P: 53 AL: 150 QRS: 68 QRSD: 99 T: 54 QT: 417 QTc: 427 Interpretive Statements Sinus rhythm Low voltage, precordial leads Compared to ECG 07/10/2018 02:09:18 Low QRS voltage now present Atrial flutter no longer present T-wave abnormality no longer present Electronically Signed On 11-03-2018 9:06:56 PDT by Timoteo Cheng MD CM:EKGRPT:ELECTROCARDIOGRAM REPORT 34 [id number] VIPIN DAVIS DRAFT REPORT VIPIN DE LA TORRE DO
[2018-11-01 20:34] VITALS: BP 118/53
[2018-11-01 20:58] LABS: BASO % 0.5 % (0.0-1.0); EOS # 0.1 10*3/uL (0.0-0.4); EOS % 1.7 % (1.0-4.0); HEMATOCRIT 39.9 % (37.0-47.0); HEMOGLOBIN 13.3 g/dl (12.0-16.0); LYMPH # 2.2 10*3/uL (1.3-4.4); LYMPH % 28.7 % (27.0-41.0); MEAN CORPUSCULAR HGB 31.7 pg (27.0-31.0); MEAN CORPUSCULAR HGB CONC 33.3 g/dl (33.0-37.0); MEAN PLATELET VOLUME 9.9 fl (9.6-12.3); MONO # 0.5 10*3/uL (0.1-1.0); NEUT # 4.7 10*3/uL (2.3-7.9); PLATELET COUNT AUTOMATED 224 10*3/uL (130-400); RED CELL DISTRI WIDTH 14.4 % (0-14.5); WHITE BLOOD COUNT 7.6 10*3/uL (4.8-10.8)
[2018-11-01 21:10] LABS: ACT PARTIAL THROMBO TIME 27.3 SECONDS (20.0-32.1)
[2018-11-01 21:34] LABS: ALBUMIN 3.5 gm/dl (3.1-4.5); ALKALINE PHOSPHATASE 81 U/L (45-117); BUN 7 mg/dl (7-24); CHLORIDE 110 mmol/L (98-107); CREATININE 0.75 mg/dL (0.55-1.02); POTASSIUM 3.3 mmol/L (3.5-5.1); SGOT/AST 9 IU/L (3-35); SGPT/ALT 17 U/L (12-78); SODIUM 144 mmol/L (136-145); TOTAL PROTEIN 6.6 gm/dL (6.4-8.2); TROPONIN I 0.027 ng/ml (<0.045)
--- NOTE | 2018-11-02 00:10 | NUR ---
PATIENT TOOK OUT OWN IV. LEFT AGAINST MEDICAL ADVICE. DR JUAREZ NOTIFIED.
[2018-11-19] MEDS ORDERED: AMITRIPTYLINE25 MG PO (13:44)
[2018-11-23] MEDS ORDERED: SEPTDS PO (15:16)
[2018-11-26] MEDS ORDERED: LIPITOR40 MG PO (15:15)
[2018-11-26] MEDS ORDERED: NEURONTIN600 MG PO (15:16)
[2018-11-27] MEDS ORDERED: VITAMIN D22000 UNIT PO (16:25)
[2018-11-27] MEDS ORDERED: NATURE'S BLEND F1 MG PO (16:25)
[2018-12-03] MEDS ORDERED: ZOFRAN4 MG PO (12:07)
[2018-12-03] MEDS ORDERED: PERCOCET 5-3251 EACH PO (12:08)
== END 2018-11-01 22:31 | disposition left against medical advice (07) | DRG 313 ==
LOC: ED 20:32 → EDHOLD 22:31
PROVIDERS: Student in an Organized Health Care Education/Training Program; ADMIT Internal Medicine
DX: R07.9 Chest pain, unspecified (principal); Z53.21 Procedure and treatment not carried out due to patient leaving prior to being seen by health care provider

== ENCOUNTER → 2018-11-23 | Outpatient (CLI) | payer OTHER ==
[~2018-11-23] MED LIST changes: +LIPITOR40 MG PO; +SEPTDS PO; +VITAMIN D22000 UNIT PO
--- NOTE | ~2018-11-23 | EKG ---
[place], [place] ELECTROCARDIOGRAM REPORT NAME: DUKE LOOMIS UNIT #: [id number] ROOM: DOCTOR: EPIPHANY DRAFT REPORT BIRTHDATE: [birth year] [facility] Test Date: 2018-11-23 Test Time: 09:47:49 Pat Name: DUKE LOOMIS Department: Room: Gender: F Repairer Wood Furniture: : 1955 Requested By: JOLEEN PETERSON Order Number: [id number] Reading MD: Hakeem Suarez MD Measurements Intervals [place] Rate: 51 P: 44 AR: 140 QRS: 61 QRSD: 86 T: 41 QT: 445 QTc: 410 Interpretive Statements Sinus rhythm Baseline wander in lead(s) I,III,aVL Compared to ECG 11/01/2018 20:35:40 No significant changes Electronically Signed On 11-23-2018 12:01:31 PDT by Hakeem Suarez MD CM:EKGRPT:ELECTROCARDIOGRAM REPORT [id number] JOLEEN DAVIS DRAFT REPORT JOLEEN PETERSON DO
== END | disposition home or self-care (01) ==
LOC: CARD 09:28
DX: Z79.899 Other long term (current) drug therapy (principal)

== ENCOUNTER → 2018-12-02 | Outpatient (CLI) | payer OTHER ==
[2018-12-02 15:44] LABS: BILIRUBIN NEGATIVE (NEGATIVE); BLOOD NEGATIVE (NEGATIVE); CLARITY CLEAR (CLEAR); COLOR YELLOW (YELLOW); GLUCOSE NEGATIVE (NEGATIVE); KETONE TRACE (NEGATIVE); LEUKO ESTERASE NEGATIVE (NEGATIVE); NITRITE NEGATIVE (NEGATIVE); SPECIFIC GRAVITY 1.015 (1.005-1.030); UROBILINOGEN 0.2 E.U./dl (0.2-1.0)
[2018-12-02 16:11] LABS: EPITHELIAL CELLS 0-2; MUCOUS 1+
== END | disposition home or self-care (01) ==
LOC: LAB 15:12
PROVIDERS: Orthopaedic Surgery
DX: N39.0 Urinary tract infection, site not specified (principal)

== ENCOUNTER 2018-12-28 14:05 | Emergency (ER) | payer OTHER ==
[~2018-12-28] VITALS: Ht 160 cm; Wt 60.8 kg
[2018-12-28 14:07] VITALS: BP 146/59
== END 2018-12-28 16:36 | disposition home or self-care (01) ==
LOC: ED 14:05
DX: S40.012A Contusion of left shoulder, initial encounter (principal); F17.200 Nicotine dependence, unspecified, uncomplicated; Z88.6 Allergy status to analgesic agent; Z91.012 Allergy to eggs; Z91.041 Radiographic dye allergy status; Z88.7 Allergy status to serum and vaccine; Z88.1 Allergy status to other antibiotic agents; Z79.899 Other long term (current) drug therapy; W22.8XXA Striking against or struck by other objects, initial encounter; Y93.89 Activity, other specified; Y92.89 Other specified places as the place of occurrence of the external cause; Y99.8 Other external cause status

== ENCOUNTER 2019-01-10 13:17 | Emergency (ER) | payer OTHER ==
[~2019-01-10] VITALS: Ht 160 cm; Wt 60.8 kg
[2019-01-10 13:20] VITALS: BP 113/61
[2019-01-10] MEDS ORDERED: IBU800 MG PO (14:06)
[2019-01-10] MEDS ORDERED: PENICILLIN VK500 MG PO (14:06)
== END 2019-01-10 14:29 | disposition home or self-care (01) ==
LOC: ED 13:17
DX: K02.9 Dental caries, unspecified (principal); J44.9 Chronic obstructive pulmonary disease, unspecified; G43.909 Migraine, unspecified, not intractable, without status migrainosus; I25.2 Old myocardial infarction; F17.200 Nicotine dependence, unspecified, uncomplicated; Z88.6 Allergy status to analgesic agent; Z88.1 Allergy status to other antibiotic agents; Z88.7 Allergy status to serum and vaccine; Z79.899 Other long term (current) drug therapy; Z90.49 Acquired absence of other specified parts of digestive tract; Z86.14 Personal history of Methicillin resistant Staphylococcus aureus infection; Z91.010 Allergy to peanuts; Z91.041 Radiographic dye allergy status

== ENCOUNTER 2019-03-08 10:12 | Emergency (ER) | payer OTHER ==
[~2019-03-08] VITALS: Ht 160 cm; Wt 59.0 kg
--- NOTE | ~2019-03-08 | EKG ---
[place], [place] ELECTROCARDIOGRAM REPORT NAME: DUKE LOOMIS UNIT #: [id number] ROOM: DOCTOR: EPIPHANY DRAFT REPORT BIRTHDATE: [address] [facility] Test Date: 2019-03-08 Test Time: 10:18:25 Pat Name: DUKE LOOMIS Department: Room: Gender: F Product Development Manager: : 1955 Requested By: BRIAN PORTILLO Order Number: [id number] Reading MD: Alva Meyers MD Measurements Intervals [place] Rate: 46 P: 57 PA: 158 QRS: 67 QRSD: 101 T: 66 QT: 477 QTc: 418 Interpretive Statements Sinus bradycardia Low voltage, precordial leads Compared to ECG 11/26/2018 11:36:47 Low QRS voltage now present Sinus rhythm no longer present Intraventricular conduction delay no longer present Electronically Signed On 03-09-2019 8:55:53 PST by Alva Meyers MD CM:EKGRPT:ELECTROCARDIOGRAM REPORT [id number] BRIAN PORTILLO EPIPHANY DRAFT REPORT BRIAN PORTILLO
[2019-03-08 10:41] LABS: BASO # 0.1 10*3/uL (0.0-0.1); BASO % 0.8 % (0.0-1.0); EOS # 0.2 10*3/uL (0.0-0.4); EOS % 2.3 % (1.0-4.0); HEMATOCRIT 40.1 % (37.0-47.0); HEMOGLOBIN 13.1 g/dl (12.0-16.0); LYMPH # 2.1 10*3/uL (1.3-4.4); MEAN CORPUSCULAR HGB CONC 32.7 g/dl (33.0-37.0); MEAN PLATELET VOLUME 9.9 fl (9.6-12.3); MONO # 0.7 10*3/uL (0.1-1.0); MONO % 8.9 % (3.0-9.0); NEUT # 4.4 10*3/uL (2.3-7.9); NEUT % 59.7 % (47.0-73.0); PLATELET COUNT AUTOMATED 220 10*3/uL (130-400); RED BLOOD COUNT 4.22 10*6/uL (4.10-5.10); RED CELL DISTRI WIDTH 14.3 % (0-14.5); WHITE BLOOD COUNT 7.4 10*3/uL (4.8-10.8)
[2019-03-08 10:56] LABS: ALBUMIN 3.2 gm/dl (3.1-4.5); ALKALINE PHOSPHATASE 82 U/L (45-117); BUN 8 mg/dl (7-24); CHLORIDE 108 mmol/L (98-107); CREATININE 0.71 mg/dL (0.55-1.02); POTASSIUM 4.4 mmol/L (3.5-5.1); SGOT/AST 40 IU/L (3-35); SGPT/ALT 38 U/L (12-78); SODIUM 140 mmol/L (136-145); TOTAL PROTEIN 6.7 gm/dL (6.4-8.2)
[2019-03-08 11:14] LABS: PHENYTOIN (DILANTIN) 1.1 ug/ml (10-20)
[2019-03-08 14:14] VITALS: BP 110/78
[2019-03-08] MEDS ORDERED: DILANTIN100 MG PO (14:27)
== END 2019-03-08 14:24 | disposition home or self-care (01) ==
LOC: ED 10:12
PROVIDERS: Nurse Practitioner
DX: R56.9 Unspecified convulsions (principal); M25.512 Pain in left shoulder; J44.9 Chronic obstructive pulmonary disease, unspecified; G89.29 Other chronic pain; F17.200 Nicotine dependence, unspecified, uncomplicated; Z91.041 Radiographic dye allergy status; Z91.012 Allergy to eggs; Z88.8 Allergy status to other drugs, medicaments and biological substances; Z88.7 Allergy status to serum and vaccine; Z88.1 Allergy status to other antibiotic agents; Z79.2 Long term (current) use of antibiotics; Z79.899 Other long term (current) drug therapy

== ENCOUNTER 2019-03-21 10:44 | Emergency (ER) | payer OTHER ==
[~2019-03-21] VITALS: Ht 160 cm; Wt 59.0 kg
--- NOTE | ~2019-03-21 | EKG ---
[place], [place] ELECTROCARDIOGRAM REPORT NAME: DUKE LOOMIS UNIT #: [id number] ROOM: DOCTOR: EPIPHANY DRAFT REPORT BIRTHDATE: [birth year] [facility] Test Date: 2019-03-21 Test Time: 11:08:50 Pat Name: DUKE LOOMIS Department: Room: Gender: F High School Guidance Counselor: : 1955 Requested By: MANISHA PARKER PA-C Order Number: [id number] Reading MD: Jase Gallardo MD Measurements Intervals [place] Rate: 83 P: 40 MD: 174 QRS: 59 QRSD: 80 T: 49 QT: 375 QTc: 441 Interpretive Statements Sinus rhythm Compared to ECG 03/08/2019 10:18:25 Sinus bradycardia no longer present Electronically Signed On 03-22-2019 6:07:32 PST by Jase Gallardo MD CM:EKGRPT:ELECTROCARDIOGRAM REPORT [id number] MANISHA PARKER PA-C EPIPHANY DRAFT REPORT MANISHA PARKER PA-C
[2019-03-21 10:45] VITALS: BP 154/90
[2019-03-21 11:19] LABS: BASO # 0.1 10*3/uL (0.0-0.1); BASO % 0.7 % (0.0-1.0); EOS # 0.2 10*3/uL (0.0-0.4); EOS % 2.1 % (1.0-4.0); HEMATOCRIT 42.8 % (37.0-47.0); LYMPH # 2.7 10*3/uL (1.3-4.4); LYMPH % 33.7 % (27.0-41.0); MEAN CELL VOLUME 94.1 fl (81.0-99.0); MEAN CORPUSCULAR HGB 30.8 pg (27.0-31.0); MEAN CORPUSCULAR HGB CONC 32.7 g/dl (33.0-37.0); MEAN PLATELET VOLUME 9.7 fl (9.6-12.3); MONO # 0.7 10*3/uL (0.1-1.0); NEUT # 4.5 10*3/uL (2.3-7.9); NEUT % 55.4 % (47.0-73.0); PLATELET COUNT AUTOMATED 230 10*3/uL (130-400); RED BLOOD COUNT 4.55 10*6/uL (4.10-5.10); RED CELL DISTRI WIDTH 14.2 % (0-14.5); WHITE BLOOD COUNT 8.1 10*3/uL (4.8-10.8)
[2019-03-21 11:37] LABS: ALKALINE PHOSPHATASE 82 U/L (45-117); BUN 14 mg/dl (7-24); CHLORIDE 106 mmol/L (98-107); CREATININE 0.93 mg/dL (0.55-1.02); POTASSIUM 4.2 mmol/L (3.5-5.1); SGOT/AST 17 IU/L (3-35); SGPT/ALT 21 U/L (12-78); SODIUM 137 mmol/L (136-145); TOTAL PROTEIN 7.7 gm/dL (6.4-8.2)
[2019-03-21 11:43] LABS: ETHYL ALCOHOL < 3.0 mg/dl (<3); TROPONIN I < 0.015 ng/ml (<0.045)
[2019-03-21 12:05] LABS: BILIRUBIN NEGATIVE (NEGATIVE); BLOOD NEGATIVE (NEGATIVE); CLARITY CLEAR (CLEAR); COLOR YELLOW (YELLOW); GLUCOSE NEGATIVE (NEGATIVE); KETONE NEGATIVE (NEGATIVE); LEUKO ESTERASE NEGATIVE (NEGATIVE); NITRITE NEGATIVE (NEGATIVE); SPECIFIC GRAVITY <= 1.005 (1.005-1.030); UROBILINOGEN 0.2 E.U./dl (0.2-1.0)
[2019-03-21 12:17] LABS: BACTERIA TRACE; EPITHELIAL CELLS 0-2; WBC 0-2 wbc/hpf (0-5)
[2019-03-21 12:18] LABS: URINE AMPHETAMINES < 1000 (1000ng/ml); URINE BARBITURATES < 200 (200ng/ml); URINE BENZODIAZEPINES > 200 (200ng/ml); URINE CANNABINOIDS (THC) < 50 (50ng/ml); URINE COCAINE < 300 (300ng/ml); URINE METHADONE < 300 (300ng/ml); URINE OPIATES > 300 (300ng/ml)
[2019-03-21 12:19] LABS: URINE PHENCYCLIDINE < 25 (25ng/ml)
[2019-03-22] MEDS ORDERED: NORCO 5-325 TA1 EACH PO (14:23)
== END 2019-03-21 14:55 | disposition home or self-care (01) ==
LOC: ED 10:44
PROVIDERS: Physician Assistant
DX: G40.909 Epilepsy, unspecified, not intractable, without status epilepticus (principal); J44.9 Chronic obstructive pulmonary disease, unspecified; R79.1 Abnormal coagulation profile; F17.200 Nicotine dependence, unspecified, uncomplicated; Z91.041 Radiographic dye allergy status; Z88.1 Allergy status to other antibiotic agents; Z88.6 Allergy status to analgesic agent; Z88.7 Allergy status to serum and vaccine; Z91.012 Allergy to eggs; Z79.899 Other long term (current) drug therapy

== ENCOUNTER 2019-03-22 10:42 | Emergency (ER) | payer OTHER ==
[~2019-03-22] VITALS: Ht 165.1 cm; Wt 65.8 kg
[2019-03-22 11:18] LABS: BASO # 0.1 10*3/uL (0.0-0.1); BASO % 0.5 % (0.0-1.0); EOS # 0.1 10*3/uL (0.0-0.4); EOS % 1.2 % (1.0-4.0); HEMOGLOBIN 13.6 g/dl (12.0-16.0); LYMPH # 1.9 10*3/uL (1.3-4.4); LYMPH % 20.6 % (27.0-41.0); MEAN CELL VOLUME 95.7 fl (81.0-99.0); MEAN CORPUSCULAR HGB CONC 32.4 g/dl (33.0-37.0); MEAN PLATELET VOLUME 9.9 fl (9.6-12.3); MONO # 0.6 10*3/uL (0.1-1.0); MONO % 6.7 % (3.0-9.0); NEUT # 6.6 10*3/uL (2.3-7.9); NEUT % 70.7 % (47.0-73.0); PLATELET COUNT AUTOMATED 223 10*3/uL (130-400); RED BLOOD COUNT 4.39 10*6/uL (4.10-5.10); RED CELL DISTRI WIDTH 14.1 % (0-14.5); WHITE BLOOD COUNT 9.4 10*3/uL (4.8-10.8)
[2019-03-22 11:28] LABS: ACT PARTIAL THROMBO TIME 27.3 SECONDS (20.0-32.1)
[2019-03-22 11:34] LABS: ALBUMIN 3.7 gm/dl (3.1-4.5); ALKALINE PHOSPHATASE 99 U/L (45-117); BUN 14 mg/dl (7-24); CHLORIDE 108 mmol/L (98-107); CREATININE 0.92 mg/dL (0.55-1.02); LIPASE 45 U/L (73-393); SGOT/AST 20 IU/L (3-35); SGPT/ALT 19 U/L (12-78); SODIUM 139 mmol/L (136-145); TOTAL PROTEIN 7.3 gm/dL (6.4-8.2)
[2019-03-22 11:35] LABS: PHENYTOIN (DILANTIN) 4.3 ug/ml (10-20)
[2019-03-22 11:37] LABS: ACETAMINOPHEN (TYLENOL) < 5.0 ug/ml (10-30); ETHYL ALCOHOL < 3.0 mg/dl (<3); TROPONIN I < 0.015 ng/ml (<0.045)
[2019-03-22 12:26] LABS: BILIRUBIN NEGATIVE (NEGATIVE); BLOOD NEGATIVE (NEGATIVE); CLARITY SL CLOUDY (CLEAR); COLOR YELLOW (YELLOW); GLUCOSE NEGATIVE (NEGATIVE); KETONE NEGATIVE (NEGATIVE); LEUKO ESTERASE NEGATIVE (NEGATIVE); NITRITE NEGATIVE (NEGATIVE); SPECIFIC GRAVITY <= 1.005 (1.005-1.030); UROBILINOGEN 0.2 E.U./dl (0.2-1.0)
[2019-03-22 12:34] LABS: URINE AMPHETAMINES < 1000 (1000ng/ml); URINE BARBITURATES < 200 (200ng/ml); URINE BENZODIAZEPINES < 200 (200ng/ml); URINE CANNABINOIDS (THC) < 50 (50ng/ml); URINE COCAINE < 300 (300ng/ml); URINE METHADONE < 300 (300ng/ml); URINE OPIATES < 300 (300ng/ml)
[2019-03-22 12:37] LABS: URINE PHENCYCLIDINE < 25 (25ng/ml)
[2019-03-22 12:51] LABS: BACTERIA TRACE; EPITHELIAL CELLS 0-2
[2019-03-22] MEDS ORDERED: NORCO 5-325 TA1 EACH PO (14:23)
[2019-03-22 14:26] VITALS: BP 121/62
== END 2019-03-22 14:38 | disposition home or self-care (01) ==
LOC: ED 10:42
PROVIDERS: Emergency Medicine
DX: S50.01XA Contusion of right elbow, initial encounter (principal); G40.909 Epilepsy, unspecified, not intractable, without status epilepticus; R55 Syncope and collapse; R41.0 Disorientation, unspecified; I25.10 Atherosclerotic heart disease of native coronary artery without angina pectoris; J44.9 Chronic obstructive pulmonary disease, unspecified; I10 Essential (primary) hypertension; M81.0 Age-related osteoporosis without current pathological fracture; F17.200 Nicotine dependence, unspecified, uncomplicated; Z91.041 Radiographic dye allergy status; Z91.012 Allergy to eggs; Z88.8 Allergy status to other drugs, medicaments and biological substances; Z88.7 Allergy status to serum and vaccine; Z79.2 Long term (current) use of antibiotics; Z79.899 Other long term (current) drug therapy; X58.XXXA Exposure to other specified factors, initial encounter; Y93.89 Activity, other specified; Y92.098 Other place in other non-institutional residence as the place of occurrence of the external cause; Y99.8 Other external cause status

== ENCOUNTER 2019-04-06 19:05 | Emergency (ER) | payer OTHER ==
[~2019-04-06] VITALS: Ht 160 cm; Wt 68.0 kg
[~2019-04-06 19:05] MED LIST changes: +NORCO 5-325 TA1 EACH PO
[2019-04-06 19:07] VITALS: BP 110/44
[2019-04-06] MEDS ORDERED: AUGMENTIN 875875 MG PO (19:45)
== END 2019-04-06 20:00 | disposition home or self-care (01) ==
LOC: ED 19:05
DX: K02.9 Dental caries, unspecified (principal); J44.9 Chronic obstructive pulmonary disease, unspecified; G89.29 Other chronic pain; Z91.041 Radiographic dye allergy status; Z91.012 Allergy to eggs; Z88.8 Allergy status to other drugs, medicaments and biological substances; Z88.7 Allergy status to serum and vaccine; Z88.1 Allergy status to other antibiotic agents; Z79.899 Other long term (current) drug therapy; Z79.2 Long term (current) use of antibiotics; Z90.49 Acquired absence of other specified parts of digestive tract

== ENCOUNTER 2019-04-29 11:51 | Inpatient (IN) | payer OTHER ==
[~2019-04-29] VITALS: Ht 172.7 cm; Wt 63.5 kg
[2019-04-29] VITALS (7 sets, daily range): BP systolic 90–140; BP diastolic 43–61
[2019-04-29 12:57] LABS: BASO # 0.1 10*3/uL (0.0-0.1); BASO % 0.5 % (0.0-1.0); EOS # 0.1 10*3/uL (0.0-0.4); EOS % 1.5 % (1.0-4.0); HEMATOCRIT 37.2 % (37.0-47.0); HEMOGLOBIN 12.2 g/dl (12.0-16.0); LYMPH # 2.3 10*3/uL (1.3-4.4); LYMPH % 25.2 % (27.0-41.0); MEAN CELL VOLUME 95.4 fl (81.0-99.0); MEAN CORPUSCULAR HGB 31.3 pg (27.0-31.0); MEAN CORPUSCULAR HGB CONC 32.8 g/dl (33.0-37.0); MONO # 0.8 10*3/uL (0.1-1.0); MONO % 8.2 % (3.0-9.0); NEUT # 5.9 10*3/uL (2.3-7.9); NEUT % 64.2 % (47.0-73.0); PLATELET COUNT AUTOMATED 272 10*3/uL (130-400); RED CELL DISTRI WIDTH 14.2 % (0-14.5); WHITE BLOOD COUNT 9.2 10*3/uL (4.8-10.8)
[2019-04-29 13:08] LABS: ACT PARTIAL THROMBO TIME 27.1 SECONDS (20.0-32.1); INTERNATIONAL NORM RATIO 0.9 (2.0-3.5)
[2019-04-29 13:13] LABS: ALBUMIN 3.3 gm/dl (3.1-4.5); ALKALINE PHOSPHATASE 77 U/L (45-117); BUN 13 mg/dl (7-24); CHLORIDE 106 mmol/L (98-107); CREATININE 0.85 mg/dL (0.55-1.02); LIPASE 84 U/L (73-393); POTASSIUM 4.4 mmol/L (3.5-5.1); SGOT/AST 21 IU/L (3-35); SGPT/ALT 19 U/L (12-78); SODIUM 137 mmol/L (136-145); TOTAL PROTEIN 6.7 gm/dL (6.4-8.2); TROPONIN I 0.028 ng/ml (<0.045)
[2019-04-29 14:55] LABS: BILIRUBIN NEGATIVE (NEGATIVE); BLOOD NEGATIVE (NEGATIVE); CLARITY SL CLOUDY (CLEAR); COLOR YELLOW (YELLOW); GLUCOSE NEGATIVE (NEGATIVE); KETONE NEGATIVE (NEGATIVE); LEUKO ESTERASE NEGATIVE (NEGATIVE); NITRITE NEGATIVE (NEGATIVE); SPECIFIC GRAVITY 1.015 (1.005-1.030); UROBILINOGEN 0.2 E.U./dl (0.2-1.0)
== END 2019-04-29 19:44 | disposition left against medical advice (07) | DRG 101 ==
LOC: ED 11:51 → EDHOLD 15:36
PROVIDERS: Emergency Medicine; ADMIT Internal Medicine
DX: G40.909 Epilepsy, unspecified, not intractable, without status epilepticus (principal); R55 Syncope and collapse; I25.10 Atherosclerotic heart disease of native coronary artery without angina pectoris; F32.9 Major depressive disorder, single episode, unspecified; E83.41 Hypermagnesemia; J43.9 Emphysema, unspecified; F41.1 Generalized anxiety disorder; R63.4 Abnormal weight loss; M81.0 Age-related osteoporosis without current pathological fracture; F17.210 Nicotine dependence, cigarettes, uncomplicated; I10 Essential (primary) hypertension; Z53.29 Procedure and treatment not carried out because of patient's decision for other reasons; I25.2 Old myocardial infarction; Z68.27 Body mass index [BMI] 27.0-27.9, adult; Z90.49 Acquired absence of other specified parts of digestive tract; Z90.710 Acquired absence of both cervix and uterus; Z85.820 Personal history of malignant melanoma of skin; Z92.21 Personal history of antineoplastic chemotherapy; Z83.3 Family history of diabetes mellitus; Z82.49 Family history of ischemic heart disease and other diseases of the circulatory system; Z88.6 Allergy status to analgesic agent; Z88.1 Allergy status to other antibiotic agents; Z88.7 Allergy status to serum and vaccine; Z88.8 Allergy status to other drugs, medicaments and biological substances; Z79.899 Other long term (current) drug therapy; Z71.6 Tobacco abuse counseling

== ENCOUNTER 2019-05-01 16:55 | Inpatient (IN) | payer OTHER ==
[~2019-05-01] VITALS: Ht 160 cm; Wt 70.5 kg
[2019-05-01 17:05] VITALS: BP 136/57
[2019-05-01 17:19] LABS: BASO # 0.1 10*3/uL (0.0-0.1); BASO % 0.8 % (0.0-1.0); EOS # 0.2 10*3/uL (0.0-0.4); EOS % 2.1 % (1.0-4.0); HEMATOCRIT 38.3 % (37.0-47.0); HEMOGLOBIN 12.3 g/dl (12.0-16.0); LYMPH # 2.7 10*3/uL (1.3-4.4); LYMPH % 31.9 % (27.0-41.0); MEAN CELL VOLUME 96.7 fl (81.0-99.0); MEAN CORPUSCULAR HGB 31.1 pg (27.0-31.0); MEAN CORPUSCULAR HGB CONC 32.1 g/dl (33.0-37.0); MEAN PLATELET VOLUME 9.7 fl (9.6-12.3); MONO # 0.9 10*3/uL (0.1-1.0); NEUT # 4.5 10*3/uL (2.3-7.9); NEUT % 53.7 % (47.0-73.0); PLATELET COUNT AUTOMATED 243 10*3/uL (130-400); RED BLOOD COUNT 3.96 10*6/uL (4.10-5.10); RED CELL DISTRI WIDTH 13.9 % (0-14.5); WHITE BLOOD COUNT 8.4 10*3/uL (4.8-10.8)
[2019-05-01 17:29] LABS: ACT PARTIAL THROMBO TIME 26.8 SECONDS (20.0-32.1); INTERNATIONAL NORM RATIO 0.9 (2.0-3.5)
[2019-05-01 17:49] VITALS: BP 136/52
[2019-05-01 17:54] LABS: ALBUMIN 3.4 gm/dl (3.1-4.5); ALKALINE PHOSPHATASE 75 U/L (45-117); BUN 15 mg/dl (7-24); CHLORIDE 108 mmol/L (98-107); CREATININE 0.88 mg/dL (0.55-1.02); SGOT/AST 23 IU/L (3-35); SGPT/ALT 20 U/L (12-78); SODIUM 141 mmol/L (136-145); TOTAL PROTEIN 6.8 gm/dL (6.4-8.2)
[2019-05-01 17:55] LABS: TROPONIN I 0.017 ng/ml (<0.045)
[2019-05-01 18:52] VITALS: BP 123/52
[2019-05-01 20:00] VITALS: BP 125/52
[2019-05-01 20:36] VITALS: BP 125/52
[2019-05-01] MEDS ORDERED: REXULTI4 MG PO (20:55)
[2019-05-02] VITALS: BP 136/57
[2019-05-02 07:04] LABS: BASO # 0.1 10*3/uL (0.0-0.1); EOS # 0.2 10*3/uL (0.0-0.4); EOS % 2.6 % (1.0-4.0); HEMATOCRIT 38.1 % (37.0-47.0); HEMOGLOBIN 12.1 g/dl (12.0-16.0); LYMPH # 2.7 10*3/uL (1.3-4.4); LYMPH % 38.7 % (27.0-41.0); MEAN CELL VOLUME 98.7 fl (81.0-99.0); MEAN CORPUSCULAR HGB 31.3 pg (27.0-31.0); MEAN CORPUSCULAR HGB CONC 31.8 g/dl (33.0-37.0); MONO # 0.7 10*3/uL (0.1-1.0); MONO % 10.2 % (3.0-9.0); NEUT # 3.2 10*3/uL (2.3-7.9); NEUT % 47.2 % (47.0-73.0); PLATELET COUNT AUTOMATED 235 10*3/uL (130-400); RED BLOOD COUNT 3.86 10*6/uL (4.10-5.10); RED CELL DISTRI WIDTH 14.2 % (0-14.5); WHITE BLOOD COUNT 6.9 10*3/uL (4.8-10.8)
[2019-05-02 07:19] LABS: ALBUMIN 3.1 gm/dl (3.1-4.5); BUN 13 mg/dl (7-24); CHLORIDE 109 mmol/L (98-107); POTASSIUM 3.9 mmol/L (3.5-5.1); SGOT/AST 14 IU/L (3-35); SGPT/ALT 21 U/L (12-78); SODIUM 140 mmol/L (136-145)
[2019-05-02 07:36] LABS: ALKALINE PHOSPHATASE 71 U/L (45-117); CHOLESTEROL 359 mg/dL (<200); CREATININE 0.81 mg/dL (0.55-1.02); HDL CHOLESTEROL 46 mg/dl (40-60); PHENYTOIN (DILANTIN) 3.4 ug/ml (10-20); PHOSPHOROUS 3.5 mg/dL (2.5-4.9); TOTAL PROTEIN 6.3 gm/dL (6.4-8.2); TRIGLYCERIDES 670 mg/dl (<150)
[2019-05-02 08:00] VITALS: BP 122/78
[2019-05-02 09:01] LABS: VITAMIN D, 25-HYDROXY 13.4 ng/mL (30-100)
[2019-05-02 12:00] VITALS: BP 92/52
[2019-05-02 16:00] VITALS: BP 112/64
[2019-05-02 20:00] VITALS: BP 137/57
[2019-05-02 23:54] VITALS: BP 141/59
[2019-05-03 06:17] LABS: BASO # 0.1 10*3/uL (0.0-0.1); BASO % 0.5 % (0.0-1.0); EOS # 0.2 10*3/uL (0.0-0.4); EOS % 2.3 % (1.0-4.0); HEMATOCRIT 37.6 % (37.0-47.0); HEMOGLOBIN 12.1 g/dl (12.0-16.0); LYMPH # 2.1 10*3/uL (1.3-4.4); MEAN CELL VOLUME 96.7 fl (81.0-99.0); MEAN CORPUSCULAR HGB 31.1 pg (27.0-31.0); MEAN CORPUSCULAR HGB CONC 32.2 g/dl (33.0-37.0); MEAN PLATELET VOLUME 10.4 fl (9.6-12.3); MONO # 0.9 10*3/uL (0.1-1.0); MONO % 9.6 % (3.0-9.0); NEUT # 6.2 10*3/uL (2.3-7.9); NEUT % 65.3 % (47.0-73.0); PLATELET COUNT AUTOMATED 222 10*3/uL (130-400); RED BLOOD COUNT 3.89 10*6/uL (4.10-5.10); RED CELL DISTRI WIDTH 13.9 % (0-14.5); WHITE BLOOD COUNT 9.6 10*3/uL (4.8-10.8)
[2019-05-03 06:37] LABS: BUN 15 mg/dl (7-24); CHLORIDE 111 mmol/L (98-107); SODIUM 140 mmol/L (136-145)
[2019-05-03 07:40] VITALS: BP 82/50
[2019-05-03 10:40] VITALS: BP 118/78
[2019-05-03 16:00] VITALS: BP 103/61
[2019-05-03] MEDS ORDERED: PREDNISONE10 MG PO (16:41)
[2019-05-03] MEDS ORDERED: DOXYCYCLINE100 M3 PO (16:41)
== END 2019-05-03 17:29 | disposition home or self-care (01) | DRG 880 ==
LOC: ED 16:55 → EDHOLD 19:24 → 4E 19:24
PROVIDERS: Internal Medicine; Student in an Organized Health Care Education/Training Program; ADMIT Internal Medicine
PROC: 4A02XM4 Measurement of Cardiac Total Activity, External Approach (ICD-10-PCS; principal; 2019-05-03)
PROC: 3E073KZ Introduction of Other Diagnostic Substance into Coronary Artery, Percutaneous Approach (ICD-10-PCS; principal; 2019-05-03)
DX: F41.1 Generalized anxiety disorder (principal); E44.1 Mild protein-calorie malnutrition; M54.9 Dorsalgia, unspecified; I25.119 Atherosclerotic heart disease of native coronary artery with unspecified angina pectoris; E87.8 Other disorders of electrolyte and fluid balance, not elsewhere classified; J43.9 Emphysema, unspecified; R73.9 Hyperglycemia, unspecified; E83.41 Hypermagnesemia; G89.29 Other chronic pain; F32.5 Major depressive disorder, single episode, in full remission; M81.0 Age-related osteoporosis without current pathological fracture; I25.10 Atherosclerotic heart disease of native coronary artery without angina pectoris; F17.210 Nicotine dependence, cigarettes, uncomplicated; E66.3 Overweight; G40.909 Epilepsy, unspecified, not intractable, without status epilepticus; Z71.6 Tobacco abuse counseling; Z68.27 Body mass index [BMI] 27.0-27.9, adult; I25.2 Old myocardial infarction; Z88.6 Allergy status to analgesic agent; Z88.1 Allergy status to other antibiotic agents; Z88.7 Allergy status to serum and vaccine; Z88.8 Allergy status to other drugs, medicaments and biological substances; Z90.710 Acquired absence of both cervix and uterus; Z90.49 Acquired absence of other specified parts of digestive tract; Z85.820 Personal history of malignant melanoma of skin; Z82.49 Family history of ischemic heart disease and other diseases of the circulatory system; Z79.899 Other long term (current) drug therapy

== ENCOUNTER 2019-06-10 12:39 | Emergency (ER) | payer OTHER ==
[~2019-06-10] VITALS: Ht 160 cm; Wt 71.7 kg
[~2019-06-10 12:39] MED LIST changes: +DOXYCYCLINE100 M3 PO
[2019-06-10 12:50] VITALS: BP 149/103
[2019-06-10] MEDS ORDERED: AUGMENTIN 875-875 MG PO (14:31)
[2019-06-10] MEDS ORDERED: NORCO 5-325 TA1 EACH PO (14:31)
== END 2019-06-10 14:36 | disposition home or self-care (01) ==
LOC: ED 12:39
DX: S80.211A Abrasion, right knee, initial encounter (principal); M27.63 Post-osseointegration mechanical failure of dental implant; I25.10 Atherosclerotic heart disease of native coronary artery without angina pectoris; J44.9 Chronic obstructive pulmonary disease, unspecified; I10 Essential (primary) hypertension; G40.909 Epilepsy, unspecified, not intractable, without status epilepticus; I25.2 Old myocardial infarction; M81.0 Age-related osteoporosis without current pathological fracture; Z91.041 Radiographic dye allergy status; Z91.012 Allergy to eggs; Z88.8 Allergy status to other drugs, medicaments and biological substances; Z88.7 Allergy status to serum and vaccine; Z79.2 Long term (current) use of antibiotics; Z79.899 Other long term (current) drug therapy; Z90.710 Acquired absence of both cervix and uterus; Z90.49 Acquired absence of other specified parts of digestive tract; Z86.14 Personal history of Methicillin resistant Staphylococcus aureus infection; W19.XXXA Unspecified fall, initial encounter; Y93.89 Activity, other specified; Y92.89 Other specified places as the place of occurrence of the external cause; Y99.8 Other external cause status

== ENCOUNTER 2019-06-28 12:56 | Inpatient (IN) | payer OTHER ==
[~2019-06-28] VITALS: Ht 160 cm; Wt 72.7 kg
[~2019-06-28 12:56] MED LIST changes: +AUGMENTIN 875-875 MG PO
[2019-06-28 13:08] VITALS: BP 76/42
[2019-06-28 13:38] LABS: BASO # 0.1 10*3/uL (0.0-0.1); BASO % 0.7 % (0.0-1.0); EOS # 0.1 10*3/uL (0.0-0.4); EOS % 1.4 % (1.0-4.0); HEMATOCRIT 41.7 % (37.0-47.0); HEMOGLOBIN 13.5 g/dl (12.0-16.0); LYMPH % 22.6 % (27.0-41.0); MEAN CELL VOLUME 94.1 fl (81.0-99.0); MEAN CORPUSCULAR HGB 30.5 pg (27.0-31.0); MEAN CORPUSCULAR HGB CONC 32.4 g/dl (33.0-37.0); MEAN PLATELET VOLUME 10.4 fl (9.6-12.3); MONO # 0.6 10*3/uL (0.1-1.0); MONO % 6.5 % (3.0-9.0); NEUT # 6.1 10*3/uL (2.3-7.9); NEUT % 68.5 % (47.0-73.0); PLATELET COUNT AUTOMATED 252 10*3/uL (130-400); RED BLOOD COUNT 4.43 10*6/uL (4.10-5.10); RED CELL DISTRI WIDTH 13.4 % (0-14.5); WHITE BLOOD COUNT 8.8 10*3/uL (4.8-10.8)
[2019-06-28 13:42] VITALS: BP 82/40
--- NOTE | 2019-06-28 13:45 | NUR ---
PT STATES SHE CHIPPED TEETH D/T FALL, STATES A CAP FELL OFF ON THE BACK RIGHT TOOTH & CHIPPED HER UPPER FRONT TOOTH
[2019-06-28 13:50] LABS: ACT PARTIAL THROMBO TIME 27.1 SECONDS (20.0-32.1)
[2019-06-28 13:57] LABS: ALBUMIN 3.3 gm/dl (3.1-4.5); CREATININE 1.19 mg/dL (0.55-1.02); POTASSIUM 3.7 mmol/L (3.5-5.1); TOTAL PROTEIN 6.7 gm/dL (6.4-8.2); TROPONIN I 0.038 ng/ml (<0.045)
[2019-06-28 14:58] VITALS: BP 82/48
[2019-06-28 16:00] VITALS: BP 106/42
[2019-06-28] MEDS ORDERED: CITALOPRAM40 MG PO (18:24)
[2019-06-28] MEDS ORDERED: PERCOCET 7.5-31 EACH PO (18:28)
[2019-06-28 18:30] VITALS: BP 141/43
[2019-06-28] MEDS ORDERED: PRAZOSIN HCL2 MG PO (18:30)
--- NOTE | 2019-06-28 18:30 | NUR ---
A 63YO FEMALE, admitted to , under the services of JULIO C Song DO with a diagnosis of SYNCOPE AND COLLAPSE/HYPOTENSION. Chief complaint is HAD SEIZURE EARLIER TODAY FOLLOWED BY VISUAL HALLUCINATION OF REACHING FOR FOOD THAT WAS NOT THERE, THEN MISSED LAST STEP OF HER STAIRS, CHIPPED HER FRONT TOOTH AND NOW HAVING NECK AND BACK PAIN. Patient arrived via stretcher from ER. Monitor applied. Initial assessment completed. Vital signs taken and recorded. JULIO C SONG DO notified of admission to the unit. Orders received. See assessment for past medical history, medications and allergies. Patient and/or family oriented to unit. [facility] visitation policy reviewed. Clothing/patient valuable form completed. LAVERN PERKINS
[2019-06-28] MEDS ORDERED: LAMICTAL200 MG PO (18:43)
[2019-06-28] MEDS ORDERED: 'CLONIDINE0.1 MG PO (18:44)
--- NOTE | 2019-06-28 18:46 | NUR ---
MED REC UPDATED/CORRECTED USING INFORMATION PROVIDED BY [facility] PHARMACIST, SOME DIFFERENCES IN PATIENT'S AND PHARMACIST'S REPORT NOTED IN YELLOW ON THE MED REC.
[2019-06-28 19:38] LABS: BILIRUBIN NEGATIVE (NEGATIVE); CLARITY CLEAR (CLEAR); COLOR YELLOW (YELLOW); GLUCOSE NEGATIVE (NEGATIVE); KETONE TRACE (NEGATIVE); SPECIFIC GRAVITY 1.005 (1.005-1.030)
[2019-06-28 19:39] LABS: BLOOD NEGATIVE (NEGATIVE); LEUKO ESTERASE NEGATIVE (NEGATIVE); NITRITE NEGATIVE (NEGATIVE); UROBILINOGEN 0.2 E.U./dl (0.2-1.0)
[2019-06-28 19:42] LABS: RBC 0-2 rbc/hpf (0-2); URINE AMPHETAMINES < 1000 (1000ng/ml); URINE BARBITURATES < 200 (200ng/ml); URINE BENZODIAZEPINES > 200 (200ng/ml); URINE CANNABINOIDS (THC) < 50 (50ng/ml); URINE COCAINE < 300 (300ng/ml); URINE METHADONE < 300 (300ng/ml); URINE OPIATES < 300 (300ng/ml)
[2019-06-28 19:43] LABS: BACTERIA 1+; EPITHELIAL CELLS 0-2; HYALINE CAST TNTC
[2019-06-28 19:44] LABS: URINE PHENCYCLIDINE < 25 (25ng/ml)
--- NOTE | 2019-06-28 20:26 | NUR ---
SPOKE WITH DR JUAREZ REGARDING PATIENT'S ORTHOSTATIC BLOOD PRESSURES. LYING 103/45 HR 57. SITTING 100/51 HR 58. STANDING 97/51 HR 61. NO NEW ORDERS RECIEVED FROM DR JUAREZ AT THIS TIME.
--- NOTE | 2019-06-28 20:28 | NUR ---
I WAS TOLD IN REPORT BY LAVERN PERKINS THAT BOLUS OF NSS DUE AT 1505 WAS GIVEN TO PATIENT. NSS NOT SCANNED. DR JUAREZ MADE AWARE.
--- NOTE | 2019-06-28 21:11 | NUR ---
XANAX GIVEN PER PATIENT REQUEST FOR COMPLAINTS OF ANXIETY. WILL ASSESS EFFECTIVENESS.
--- NOTE | 2019-06-28 22:47 | NUR ---
XANAX EFFECTIVE PER PATIENT.
[2019-06-29] VITALS: BP 111/62
--- NOTE | 2019-06-29 02:09 | NUR ---
TYLENOL GIVEN PER PATIENT REQUEST FOR COMPLAINTS OF NECK PAIN RATED 6/10. WILL ASSESS EFFECTIVENESS.
--- NOTE | 2019-06-29 03:00 | NUR ---
TYLENOL EFFECTIVE PER PATIENT.
--- NOTE | 2019-06-29 05:02 | NUR ---
PO XANAX ADMINISTERED PER PRN ORDER FOR C/O ANXIETY. WILL MONITOR EFFECTIVENESS. CALL LIGHT IN REACH.
[2019-06-29 06:25] LABS: BASO # 0.1 10*3/uL (0.0-0.1); BASO % 0.8 % (0.0-1.0); EOS # 0.3 10*3/uL (0.0-0.4); EOS % 4.1 % (1.0-4.0); HEMATOCRIT 37.7 % (37.0-47.0); HEMOGLOBIN 12.2 g/dl (12.0-16.0); LYMPH # 2.3 10*3/uL (1.3-4.4); LYMPH % 34.8 % (27.0-41.0); MEAN CORPUSCULAR HGB 30.7 pg (27.0-31.0); MEAN CORPUSCULAR HGB CONC 32.4 g/dl (33.0-37.0); MEAN PLATELET VOLUME 10.7 fl (9.6-12.3); MONO # 0.6 10*3/uL (0.1-1.0); MONO % 9.4 % (3.0-9.0); NEUT # 3.3 10*3/uL (2.3-7.9); NEUT % 50.6 % (47.0-73.0); PLATELET COUNT AUTOMATED 224 10*3/uL (130-400); RED BLOOD COUNT 3.97 10*6/uL (4.10-5.10); RED CELL DISTRI WIDTH 13.6 % (0-14.5); WHITE BLOOD COUNT 6.6 10*3/uL (4.8-10.8)
[2019-06-29 07:20] LABS: ALKALINE PHOSPHATASE 66 U/L (45-117); BUN 14 mg/dl (7-24); CHLORIDE 108 mmol/L (98-107); CHOLESTEROL 332 mg/dL (<200); CREATININE 0.79 mg/dL (0.55-1.02); HDL CHOLESTEROL 50 mg/dl (40-60); LDL CHOLESTEROL 214 mg/dL (9-159); PHOSPHOROUS 3.9 mg/dL (2.5-4.9); POTASSIUM 4.2 mmol/L (3.5-5.1); SGOT/AST 12 IU/L (3-35); SGPT/ALT 25 U/L (12-78); SODIUM 138 mmol/L (136-145); TRIGLYCERIDES 340 mg/dl (<150); VLDL CHOLESTEROL 68 mg/dL (6-40)
[2019-06-29 07:28] LABS: VITAMIN D, 25-HYDROXY 17.1 ng/mL (30-100)
--- NOTE | 2019-06-29 07:47 | NUR ---
PHYSICAL THERAPY Screen and PT eval received will follow thank you Catherine Garcia PT
--- NOTE | 2019-06-29 07:58 | NUR ---
OCCUPATIONAL THERAPY Screen and OT eval received will follow thank you Leslie Love OTR/L
[2019-06-29 08:00] VITALS: BP 133/59
--- NOTE | 2019-06-29 09:00 | NUR ---
Electron Gun Inspector in to talk to patient. Patient states lives at home with boyfriend. There are no steps in the home. Physician: gurwinder javed [facility]acy: [facility] Home health services: none Patient's level of ADLs: INDEPENDENT Patient has working utilities: all working DME: none Follow-up physician's appointment after d/c: will be made by hospitalist nurse director upon discharge Does patient want to access PORTAL?: no Discharge plan discussed with patient, she states she lives at home with boyfriend, she is independent in adls and ambulation, she states she will return home when medically stable and denies any home needs, case management will follow. CARLOS BARRIGA
--- NOTE | 2019-06-29 09:30 | NUR ---
PHYSICAL THERAPY Initated eval at the bedside but then pt c/o pre siezure symptoms of "muffling of her ears" starting "twenty minutes ago" spoke with nurse Valencia coulter pt's complaints per nsg will go and assess pt and give morning meds. Dr. Christiansen also in pt's room at that time and updated on situation. Will follow later in the AM for evaluation after pt has had her medications and nurse has assessed. Catherine Garcia PT
--- NOTE | 2019-06-29 09:30 | NUR ---
OCCUPATIONAL THERAPY Occupational Therapy evaluation initiated at bedside this am. Patient reported pre-siezure symptoms of "muffling of her ears" which started "twenty minutes ago." Patient's nurse notified regarding patient's symptoms. Nurse to go and assess patient and give morning meds. Dr Christiansen also in patient room at time of situation. Will follow up later to continue evaluation after patient has had her medications and nurse has assessed. Leslie Love OTR/L
[2019-06-29 10:11] VITALS: BP 110/68
--- NOTE | 2019-06-29 10:11 | NUR ---
MEDICATED WITH PRN PO XANAX FOR ANXIETY.
--- NOTE | 2019-06-29 10:45 | NUR ---
PHYSICAL THERAPY Giovanna completed full report to follow recomend home with family and supportive services. Pt is independent overall with transfers, ambulation no AD, 8 steps w HR Supervision to Mod Ind. Steady gait no symptoms of lightheadedeness or dizziness w activity. Pt states her son will be with her on discharge. Catherine Garcia PT
--- NOTE | 2019-06-29 11:20 | NUR ---
Occupational Therapy evaluation completed on the 4th floor with full eval to follow. Low complexity level. Precautions: IV site/pole, hx seizures, hx falls. Recommend home with family support Thank you for this referral, Leslie Love OTR/L
[2019-06-29 12:00] VITALS: BP 127/56
--- NOTE | 2019-06-29 12:45 | NUR ---
PT LEFT AMA
== END 2019-06-29 12:48 | disposition left against medical advice (07) | DRG 640 ==
LOC: ED 12:56 → EDHOLD 15:17 → 4E 15:17
PROVIDERS: Emergency Medicine; Student in an Organized Health Care Education/Training Program; ADMIT Family Medicine
DX: E86.0 Dehydration (principal); N17.0 Acute kidney failure with tubular necrosis; I95.9 Hypotension, unspecified; Z53.29 Procedure and treatment not carried out because of patient's decision for other reasons; I10 Essential (primary) hypertension; G40.909 Epilepsy, unspecified, not intractable, without status epilepticus; F17.210 Nicotine dependence, cigarettes, uncomplicated; F14.10 Cocaine abuse, uncomplicated; J44.9 Chronic obstructive pulmonary disease, unspecified; I25.10 Atherosclerotic heart disease of native coronary artery without angina pectoris; R79.89 Other specified abnormal findings of blood chemistry; F41.9 Anxiety disorder, unspecified; F32.9 Major depressive disorder, single episode, unspecified; M81.0 Age-related osteoporosis without current pathological fracture; I25.2 Old myocardial infarction; Z71.6 Tobacco abuse counseling; Z86.14 Personal history of Methicillin resistant Staphylococcus aureus infection; Z87.11 Personal history of peptic ulcer disease; Z85.820 Personal history of malignant melanoma of skin; Z86.19 Personal history of other infectious and parasitic diseases; Z88.1 Allergy status to other antibiotic agents; Z88.6 Allergy status to analgesic agent; Z88.8 Allergy status to other drugs, medicaments and biological substances

== ENCOUNTER 2019-07-05 11:58 | Inpatient (IN) | payer OTHER ==
[~2019-07-05] VITALS: Ht 160 cm; Wt 72.1 kg
[2019-07-05] VITALS (8 sets, daily range): BP systolic 143–169; BP diastolic 63–80
[~2019-07-05 11:58] MED LIST changes: +CITALOPRAM40 MG PO; +LAMICTAL200 MG PO; +PERCOCET 7.5-31 EACH PO; +PRAZOSIN HCL2 MG PO
[2019-07-05 13:11] LABS: BASO # 0.1 10*3/uL (0.0-0.1); BASO % 1.1 % (0.0-1.0); EOS # 0.2 10*3/uL (0.0-0.4); EOS % 3.4 % (1.0-4.0); HEMATOCRIT 43.4 % (37.0-47.0); HEMOGLOBIN 14.1 g/dl (12.0-16.0); LYMPH % 28.9 % (27.0-41.0); MEAN CELL VOLUME 95.2 fl (81.0-99.0); MEAN CORPUSCULAR HGB 30.9 pg (27.0-31.0); MEAN CORPUSCULAR HGB CONC 32.5 g/dl (33.0-37.0); MEAN PLATELET VOLUME 10.1 fl (9.6-12.3); MONO # 0.7 10*3/uL (0.1-1.0); MONO % 9.2 % (3.0-9.0); NEUT % 57.3 % (47.0-73.0); PLATELET COUNT AUTOMATED 241 10*3/uL (130-400); RED BLOOD COUNT 4.56 10*6/uL (4.10-5.10)
[2019-07-05 13:26] LABS: ACT PARTIAL THROMBO TIME 26.7 SECONDS (20.0-32.1); INTERNATIONAL NORM RATIO 0.9 (2.0-3.5)
[2019-07-05 13:30] LABS: ALBUMIN 3.4 gm/dl (3.1-4.5); ALKALINE PHOSPHATASE 74 U/L (45-117); BUN 11 mg/dl (7-24); CHLORIDE 108 mmol/L (98-107); CREATININE 0.73 mg/dL (0.55-1.02); POTASSIUM 4.2 mmol/L (3.5-5.1); SGOT/AST 31 IU/L (3-35); SGPT/ALT 28 U/L (12-78); SODIUM 139 mmol/L (136-145)
[2019-07-05 13:31] LABS: TROPONIN I 0.033 ng/ml (<0.045)
[2019-07-05] MEDS ORDERED: CLONIDINE0.2 MG PO (15:47)
[2019-07-05] MEDS ORDERED: MINIPRESS2 M1 PO (15:49)
[2019-07-06] VITALS: BP 138/64
[2019-07-06 07:15] LABS: BASO % 0.4 % (0.0-1.0); EOS % 0.2 % (1.0-4.0); HEMATOCRIT 36.5 % (37.0-47.0); HEMOGLOBIN 11.7 g/dl (12.0-16.0); LYMPH # 0.9 10*3/uL (1.3-4.4); LYMPH % 16.8 % (27.0-41.0); MEAN CELL VOLUME 94.8 fl (81.0-99.0); MEAN CORPUSCULAR HGB 30.4 pg (27.0-31.0); MEAN CORPUSCULAR HGB CONC 32.1 g/dl (33.0-37.0); MEAN PLATELET VOLUME 10.3 fl (9.6-12.3); MONO # 0.3 10*3/uL (0.1-1.0); NEUT # 4.3 10*3/uL (2.3-7.9); NEUT % 77.1 % (47.0-73.0); PLATELET COUNT AUTOMATED 209 10*3/uL (130-400); RED BLOOD COUNT 3.85 10*6/uL (4.10-5.10); WHITE BLOOD COUNT 5.6 10*3/uL (4.8-10.8)
[2019-07-06 07:45] LABS: BUN 11 mg/dl (7-24); CHLORIDE 108 mmol/L (98-107); CHOLESTEROL 292 mg/dL (<200); CREATININE 0.65 mg/dL (0.55-1.02); SGOT/AST 22 IU/L (3-35); SGPT/ALT 22 U/L (12-78); SODIUM 138 mmol/L (136-145)
[2019-07-06 07:55] LABS: ALKALINE PHOSPHATASE 64 U/L (45-117); HDL CHOLESTEROL 68 mg/dl (40-60); LDL CHOLESTEROL 184 mg/dL (9-159); PHOSPHOROUS 2.8 mg/dL (2.5-4.9); THYROID STIM HORMONE (HS) 0.887 uIU/ml (0.358-4.75); TOTAL PROTEIN 6.3 gm/dL (6.4-8.2); TRIGLYCERIDES 202 mg/dl (<150); VLDL CHOLESTEROL 40 mg/dL (6-40)
[2019-07-06 08:00] VITALS: BP 118/80; BP 120/60
[2019-07-06] MEDS ORDERED: OMNICEF300 MG PO (11:13)
[2019-07-06] MEDS ORDERED: ZITHROMAX500 MG PO (11:13)
[2019-07-06] MEDS ORDERED: PREDNISONE10 MG PO (11:14)
== END 2019-07-06 13:11 | disposition home or self-care (01) | DRG 205 ==
LOC: ED 11:58 → EDHOLD 13:27 → 4E 13:27 → EDHOLD 14:11 → 5E 14:21 → 4E 14:46
PROVIDERS: Emergency Medicine; Internal Medicine; ADMIT Internal Medicine
DX: M94.0 Chondrocostal junction syndrome [Tietze] (principal); J18.9 Pneumonia, unspecified organism; J43.9 Emphysema, unspecified; I10 Essential (primary) hypertension; E87.8 Other disorders of electrolyte and fluid balance, not elsewhere classified; E83.41 Hypermagnesemia; I25.10 Atherosclerotic heart disease of native coronary artery without angina pectoris; F32.9 Major depressive disorder, single episode, unspecified; F41.9 Anxiety disorder, unspecified; F17.210 Nicotine dependence, cigarettes, uncomplicated; G40.909 Epilepsy, unspecified, not intractable, without status epilepticus; M81.0 Age-related osteoporosis without current pathological fracture; B19.20 Unspecified viral hepatitis C without hepatic coma; F29 Unspecified psychosis not due to a substance or known physiological condition; I25.2 Old myocardial infarction; Z88.7 Allergy status to serum and vaccine; Z88.8 Allergy status to other drugs, medicaments and biological substances; Z88.6 Allergy status to analgesic agent; Z88.1 Allergy status to other antibiotic agents; Z91.041 Radiographic dye allergy status; Z91.012 Allergy to eggs; Z91.81 History of falling; Z86.14 Personal history of Methicillin resistant Staphylococcus aureus infection; Z90.49 Acquired absence of other specified parts of digestive tract; Z90.710 Acquired absence of both cervix and uterus; Z92.21 Personal history of antineoplastic chemotherapy; Z92.3 Personal history of irradiation; Z98.891 History of uterine scar from previous surgery; Z82.49 Family history of ischemic heart disease and other diseases of the circulatory system; Z83.3 Family history of diabetes mellitus; Z80.8 Family history of malignant neoplasm of other organs or systems; Z79.899 Other long term (current) drug therapy

== ENCOUNTER 2019-07-29 10:03 | Emergency (ER) | payer OTHER ==
[~2019-07-29] VITALS: Ht 160 cm; Wt 63.5 kg
[~2019-07-29 10:03] MED LIST changes: +CLONIDINE0.2 MG PO; +MINIPRESS2 M1 PO; +OMNICEF300 MG PO; +ZITHROMAX500 MG PO
[2019-07-29 10:43] LABS: BILIRUBIN NEGATIVE (NEGATIVE); BLOOD NEGATIVE (NEGATIVE); CLARITY SL CLOUDY (CLEAR); GLUCOSE NEGATIVE (NEGATIVE); KETONE NEGATIVE (NEGATIVE); LEUKO ESTERASE NEGATIVE (NEGATIVE); NITRITE NEGATIVE (NEGATIVE); UROBILINOGEN 0.2 E.U./dl (0.2-1.0)
[2019-07-29 10:44] LABS: BACTERIA 2+; COLOR YELLOW (YELLOW); MUCOUS 1+
[2019-07-29 11:23] LABS: BASO # 0.1 10*3/uL (0.0-0.1); BASO % 1.1 % (0.0-1.0); EOS # 0.4 10*3/uL (0.0-0.4); HEMATOCRIT 38.5 % (37.0-47.0); HEMOGLOBIN 12.7 g/dl (12.0-16.0); LYMPH # 2.1 10*3/uL (1.3-4.4); LYMPH % 34.6 % (27.0-41.0); MEAN CELL VOLUME 94.8 fl (81.0-99.0); MEAN CORPUSCULAR HGB 31.3 pg (27.0-31.0); MEAN PLATELET VOLUME 10.2 fl (9.6-12.3); MONO # 0.6 10*3/uL (0.1-1.0); MONO % 9.5 % (3.0-9.0); NEUT % 48.5 % (47.0-73.0); PLATELET COUNT AUTOMATED 239 10*3/uL (130-400); RED BLOOD COUNT 4.06 10*6/uL (4.10-5.10); RED CELL DISTRI WIDTH 14.4 % (0-14.5); WHITE BLOOD COUNT 6.2 10*3/uL (4.8-10.8)
[2019-07-29 11:28] LABS: ACT PARTIAL THROMBO TIME 27.6 SECONDS (20.0-32.1)
[2019-07-29 11:36] LABS: ALBUMIN 3.1 gm/dl (3.1-4.5); BUN 9 mg/dl (7-24); CHLORIDE 108 mmol/L (98-107); CREATININE 0.98 mg/dL (0.55-1.02); LIPASE 68 U/L (73-393); SGOT/AST 30 IU/L (3-35); SGPT/ALT 30 U/L (12-78); SODIUM 141 mmol/L (136-145); TOTAL PROTEIN 6.4 gm/dL (6.4-8.2)
[2019-07-29 11:37] LABS: ALKALINE PHOSPHATASE 71 U/L (45-117)
[2019-07-29 13:05] VITALS: BP 130/78
[2019-07-29] MEDS ORDERED: PERCOCET 5-3251 EACH PO (13:57)
[2019-07-29] MEDS ORDERED: FLAGYL500 MG PO (13:57)
[2019-07-29] MEDS ORDERED: Motrin,Rufen800 MG PO (13:57)
[2019-07-29] MEDS ORDERED: CIPRO500 MG PO (13:57)
[2019-07-29] MEDS ORDERED: ZOFRAN4 MG PO (14:03)
== END 2019-07-29 14:09 | disposition home or self-care (01) ==
LOC: ED 10:03
PROVIDERS: Emergency Medicine
DX: K57.32 Diverticulitis of large intestine without perforation or abscess without bleeding (principal); R33.9 Retention of urine, unspecified; J44.9 Chronic obstructive pulmonary disease, unspecified; M81.0 Age-related osteoporosis without current pathological fracture; G89.29 Other chronic pain; F17.200 Nicotine dependence, unspecified, uncomplicated; Z87.442 Personal history of urinary calculi; Z91.041 Radiographic dye allergy status; Z91.012 Allergy to eggs; Z88.8 Allergy status to other drugs, medicaments and biological substances; Z88.7 Allergy status to serum and vaccine; Z88.1 Allergy status to other antibiotic agents; Z79.2 Long term (current) use of antibiotics; Z79.899 Other long term (current) drug therapy; Z98.890 Other specified postprocedural states; Z90.710 Acquired absence of both cervix and uterus; Z90.49 Acquired absence of other specified parts of digestive tract; Z86.14 Personal history of Methicillin resistant Staphylococcus aureus infection

== ENCOUNTER 2019-07-31 09:36 | Emergency (ER) | payer OTHER ==
[~2019-07-31] VITALS: Ht 160 cm; Wt 63.5 kg
[~2019-07-31 09:36] MED LIST changes: +CIPRO500 MG PO
[2019-07-31 09:51] VITALS: BP 91/50
[2019-07-31 10:45] LABS: BASO # 0.1 10*3/uL (0.0-0.1); EOS # 0.5 10*3/uL (0.0-0.4); EOS % 7.1 % (1.0-4.0); HEMATOCRIT 37.5 % (37.0-47.0); HEMOGLOBIN 12.1 g/dl (12.0-16.0); LYMPH # 1.8 10*3/uL (1.3-4.4); LYMPH % 25.5 % (27.0-41.0); MEAN CELL VOLUME 96.6 fl (81.0-99.0); MEAN CORPUSCULAR HGB 31.2 pg (27.0-31.0); MEAN CORPUSCULAR HGB CONC 32.3 g/dl (33.0-37.0); MONO # 0.8 10*3/uL (0.1-1.0); MONO % 11.4 % (3.0-9.0); NEUT # 3.8 10*3/uL (2.3-7.9); NEUT % 54.6 % (47.0-73.0); PLATELET COUNT AUTOMATED 214 10*3/uL (130-400); RED BLOOD COUNT 3.88 10*6/uL (4.10-5.10); RED CELL DISTRI WIDTH 14.5 % (0-14.5); WHITE BLOOD COUNT 6.9 10*3/uL (4.8-10.8)
[2019-07-31 11:03] LABS: ALBUMIN 2.9 gm/dl (3.1-4.5); ALKALINE PHOSPHATASE 63 U/L (45-117); BUN 10 mg/dl (7-24); CHLORIDE 109 mmol/L (98-107); LIPASE 39 U/L (73-393); POTASSIUM 4.3 mmol/L (3.5-5.1); SGOT/AST 23 IU/L (3-35); SGPT/ALT 13 U/L (12-78); SODIUM 139 mmol/L (136-145)
== END 2019-07-31 15:17 | disposition home or self-care (01) ==
LOC: ED 09:36
PROVIDERS: Nurse Practitioner
DX: K59.00 Constipation, unspecified (principal); F32.9 Major depressive disorder, single episode, unspecified; R56.9 Unspecified convulsions; F41.9 Anxiety disorder, unspecified; Z88.8 Allergy status to other drugs, medicaments and biological substances; Z91.012 Allergy to eggs; Z91.041 Radiographic dye allergy status; Z79.899 Other long term (current) drug therapy; Z79.2 Long term (current) use of antibiotics; Z90.49 Acquired absence of other specified parts of digestive tract; Z90.710 Acquired absence of both cervix and uterus

== ENCOUNTER 2019-08-01 17:06 | Inpatient (IN) | payer OTHER ==
[~2019-08-01] VITALS: Ht 160 cm; Wt 77.8 kg
[2019-08-01 17:23] VITALS: BP 89/52
[2019-08-01 17:34] VITALS: BP 108/50
[2019-08-01 18:26] LABS: BASO # 0.1 10*3/uL (0.0-0.1); BASO % 0.7 % (0.0-1.0); EOS # 0.3 10*3/uL (0.0-0.4); EOS % 4.3 % (1.0-4.0); HEMATOCRIT 37.1 % (37.0-47.0); HEMOGLOBIN 12.1 g/dl (12.0-16.0); LYMPH # 1.3 10*3/uL (1.3-4.4); LYMPH % 19.1 % (27.0-41.0); MEAN CELL VOLUME 95.6 fl (81.0-99.0); MEAN CORPUSCULAR HGB 31.2 pg (27.0-31.0); MEAN CORPUSCULAR HGB CONC 32.6 g/dl (33.0-37.0); MONO # 0.7 10*3/uL (0.1-1.0); MONO % 9.7 % (3.0-9.0); NEUT # 4.4 10*3/uL (2.3-7.9); NEUT % 66.1 % (47.0-73.0); PLATELET COUNT AUTOMATED 221 10*3/uL (130-400); RED BLOOD COUNT 3.88 10*6/uL (4.10-5.10); RED CELL DISTRI WIDTH 14.7 % (0-14.5); WHITE BLOOD COUNT 6.7 10*3/uL (4.8-10.8)
--- NOTE | 2019-08-01 18:36 | NUR ---
PT REQUESTING ADDITIONAL PAIN MEDICATION D/T TORADOL INEFFECTIVE FOR S/S,PIPPA ZARAGOZA NOTIFIED.
[2019-08-01 18:40] LABS: ALBUMIN 3.1 gm/dl (3.1-4.5); ALKALINE PHOSPHATASE 89 U/L (45-117); BUN 8 mg/dl (7-24); CHLORIDE 112 mmol/L (98-107); CREATININE 0.98 mg/dL (0.55-1.02); LIPASE 61 U/L (73-393); POTASSIUM 4.1 mmol/L (3.5-5.1); SGOT/AST 189 IU/L (3-35); SGPT/ALT 279 U/L (12-78); SODIUM 142 mmol/L (136-145); TOTAL PROTEIN 6.5 gm/dL (6.4-8.2)
--- NOTE | 2019-08-01 18:47 | NUR ---
CALLED TO ROOM PT REQUESTING MORE PAIN MEDICATION. LONDON CID NOTIFIED.
--- NOTE | 2019-08-01 19:08 | NUR ---
PT STATING "SINCE I AM GETTING MORPHINE NOW,SHE(PIPPA CALLAHAN PA-C)SAID THEN I WILL STAY", PT WAS UNDRESSED AND NAKED IN EXAM ROOM REQUESTING TO SIGN OUT...UNLESS SHE(PT)GETS SOMETHING FOR PAIN", PT POSITIONED FOR COMFORT WITH SAFETY PRECAUTIONS INTACT AND CALL LIGHT WITHIN REACH.
--- NOTE | 2019-08-01 19:15 | NUR ---
PT PARAEDUCATOR LIGHT STATING "I WANT MY MORPHINE!!".PT W/O ACUTE DISTRESS NOTED.
[2019-08-01 19:49] VITALS: BP 139/61
--- NOTE | 2019-08-01 19:49 | NUR ---
PT DENIES ANY OPEN WOUNDS SORES OR CUTS AT THIS TIME.
--- NOTE | 2019-08-01 20:09 | NUR ---
PT PROVIDED A BOX LUNCH AND TIMUR MENDEZ @ THIS TIME,PT REQUESTING TO KNOW "IF THE DOCTORS UPSTAIRS ARE GOING TO GIVE ME(PT)PAIN MEDICATIONS?",,BECAUSE THE PAIN IS STARTING TO COME BACK".
--- NOTE | 2019-08-01 20:41 | NUR ---
Time: 2040 A 63 year old FEMALE admitted to under services of RONNIE SHETH DO. Pt. arrived via ambulatory from ER. Chief complaint: ABD PAIN, DIARRHEA. BRAYDEN HOYOS
--- NOTE | 2019-08-01 21:39 | NUR ---
DR. BRIAN NOTIFIED OF PT'S MED REC UTD. MEDS REVIEWED AND CONTINUED. OK TO ORDER NICOTROL INHALER PER PT REQUEST.
--- NOTE | 2019-08-01 21:50 | NUR ---
pt medicated w/morphine ivp for c/o abd pain 07/29. mckinley larissa and crackers given to pt at this time. call light in reach. pt reminded of need for urine sample. pt continues to have diarrhea.
--- NOTE | 2019-08-01 23:11 | NUR ---
LEFT MESSAGE W/[facility] ANSWERING SERVICE RE CONSULT FOR ACUTE HEPATITIS.
[2019-08-02] VITALS: BP 102/49
--- NOTE | 2019-08-02 03:20 | NUR ---
pt medicated w/morphine ivp for c/o abd pain 11/28. pt ate 1 cracker. pt states she hasn't been able to keep anything down for 3 days. mckinley dias offered and accepted. call light in reach.
--- NOTE | 2019-08-02 05:47 | NUR ---
PT MEDICATED W/XANAX PER PT REQUEST.
[2019-08-02 06:03] LABS: BASO % 0.8 % (0.0-1.0); EOS # 0.3 10*3/uL (0.0-0.4); EOS % 5.8 % (1.0-4.0); HEMATOCRIT 33.8 % (37.0-47.0); HEMOGLOBIN 10.8 g/dl (12.0-16.0); LYMPH # 1.5 10*3/uL (1.3-4.4); LYMPH % 28.5 % (27.0-41.0); MEAN CELL VOLUME 96.6 fl (81.0-99.0); MEAN CORPUSCULAR HGB 30.9 pg (27.0-31.0); MEAN PLATELET VOLUME 10.6 fl (9.6-12.3); MONO # 0.6 10*3/uL (0.1-1.0); NEUT # 2.7 10*3/uL (2.3-7.9); NEUT % 52.7 % (47.0-73.0); PLATELET COUNT AUTOMATED 199 10*3/uL (130-400); WHITE BLOOD COUNT 5.2 10*3/uL (4.8-10.8)
[2019-08-02 06:26] LABS: ALBUMIN 2.7 gm/dl (3.1-4.5); ALKALINE PHOSPHATASE 88 U/L (45-117); BUN 8 mg/dl (7-24); CHLORIDE 115 mmol/L (98-107); CHOLESTEROL 308 mg/dL (<200); CREATININE 0.82 mg/dL (0.55-1.02); FREE T4 0.53 ng/dl (0.76-1.46); HDL CHOLESTEROL 52 mg/dl (40-60); LDL CHOLESTEROL 204 mg/dL (9-159); PHOSPHOROUS 3.5 mg/dL (2.5-4.9); SGOT/AST 262 IU/L (3-35); SGPT/ALT 291 U/L (12-78); SODIUM 144 mmol/L (136-145); TOTAL PROTEIN 5.7 gm/dL (6.4-8.2); TRIGLYCERIDES 260 mg/dl (<150); VLDL CHOLESTEROL 52 mg/dL (6-40)
[2019-08-02 06:27] LABS: ACT PARTIAL THROMBO TIME 26.9 SECONDS (20.0-32.1)
[2019-08-02 06:57] LABS: VITAMIN D, 25-HYDROXY 17.2 ng/mL (30-100)
[2019-08-02 08:24] LABS: BILIRUBIN NEGATIVE (NEGATIVE); CLARITY CLEAR (CLEAR); COLOR YELLOW (YELLOW); GLUCOSE NEGATIVE (NEGATIVE); KETONE NEGATIVE (NEGATIVE)
[2019-08-02 08:25] LABS: BLOOD NEGATIVE (NEGATIVE); LEUKO ESTERASE NEGATIVE (NEGATIVE); MUCOUS TRACE; NITRITE NEGATIVE (NEGATIVE); UROBILINOGEN 0.2 E.U./dl (0.2-1.0)
--- NOTE | 2019-08-02 08:59 | NUR ---
PT REQUESTING " MY PAIN SHOT" PT INSTRUCTED THAT MORPHINE WAS DC/D AND NORCO WAS AVAILABLE/ PT ASKED FOR THE NORCO NORCO GIVEN FOR C/O ABD PAIN . PT RATES PAIN 8/10 WILL MONITOR
[2019-08-02] MEDS ORDERED: HYDROCODONE-AC1 EAC1 PO (09:30)
--- NOTE | 2019-08-02 10:32 | NUR ---
Discharge instructions reviewed with patient/family. Patient receptive and verbalizes understanding. Follow-up care arranged. Written instructions given to patient/family. DIAMANTE DOAN
[2019-08-02] MEDS ORDERED: VITAMIN D32000 UNI2 PO (10:51)
--- NOTE | 2019-08-02 11:04 | NUR ---
Dietetics Director in to talk to patient. Patient states lives at HOME with SON. There are 12 steps in the home. Physician: Chloé SULLIVAN [facility]acy: [facility] Home health services: NONE Patient's level of ADLs: INDEPENDENT Patient has working utilities: YES DME: NEBULIZER Follow-up physician's appointment after d/c: WILL BE MADE BY HOSPITALIST NURSE DIRECTOR ON DISCHARGE Does patient want to access PORTAL?: NO Discharge plan PT LIVES AT HOME WITH HER SON AND IS INDEPENDENT IN HER CARE. DENIES SHE WILL HAVE ANY NEEDS ON DISCHARGE. PLANS TO RETURN HOME WHEN MEDICALLY STABLE WITH SON. WILL CONTINUE TO FOLLOW. STATES SON WILL TAKE HER HOME. . SAGAR DOTSON
[2019-08-03 07:04] LABS: HEP B CORE AB, IGM Negative (Negative); HEPATITIS B SURFACE AG Negative (Negative)
[2019-08-03 15:36] LABS: HEPATITIS C VIRUS ANTIBODY >11.0 s/co (0.0-0.9)
== END 2019-08-02 10:32 | disposition home or self-care (01) | DRG 391 ==
LOC: ED 17:06 → EDHOLD 19:44 → 4E 19:56
PROVIDERS: Internal Medicine; Physician Assistant; ADMIT Internal Medicine
DX: R19.7 Diarrhea, unspecified (principal); E43 Unspecified severe protein-calorie malnutrition; R10.32 Left lower quadrant pain; E87.8 Other disorders of electrolyte and fluid balance, not elsewhere classified; E83.41 Hypermagnesemia; I25.10 Atherosclerotic heart disease of native coronary artery without angina pectoris; B18.2 Chronic viral hepatitis C; J44.9 Chronic obstructive pulmonary disease, unspecified; F32.9 Major depressive disorder, single episode, unspecified; E78.5 Hyperlipidemia, unspecified; F41.1 Generalized anxiety disorder; M81.0 Age-related osteoporosis without current pathological fracture; G40.909 Epilepsy, unspecified, not intractable, without status epilepticus; F17.210 Nicotine dependence, cigarettes, uncomplicated; Z68.30 Body mass index [BMI] 30.0-30.9, adult; I25.2 Old myocardial infarction; Z90.710 Acquired absence of both cervix and uterus; Z90.49 Acquired absence of other specified parts of digestive tract; Z85.820 Personal history of malignant melanoma of skin; Z92.21 Personal history of antineoplastic chemotherapy; Z92.3 Personal history of irradiation; Z82.49 Family history of ischemic heart disease and other diseases of the circulatory system; Z83.3 Family history of diabetes mellitus; Z88.6 Allergy status to analgesic agent; Z88.1 Allergy status to other antibiotic agents; Z88.7 Allergy status to serum and vaccine; Z88.8 Allergy status to other drugs, medicaments and biological substances; Z91.018 Allergy to other foods; Z79.899 Other long term (current) drug therapy

== ENCOUNTER 2019-08-06 10:33 | Emergency (ER) | payer OTHER ==
[~2019-08-06] VITALS: Ht 160 cm; Wt 77.1 kg
[~2019-08-06 10:33] MED LIST changes: +HYDROCODONE-AC1 EAC1 PO; +VITAMIN D32000 UNI2 PO
[2019-08-06 13:04] VITALS: BP 151/76
[2019-08-06 13:20] LABS: BASO # 0.1 10*3/uL (0.0-0.1); BASO % 0.5 % (0.0-1.0); EOS # 0.2 10*3/uL (0.0-0.4); EOS % 2.3 % (1.0-4.0); LYMPH # 1.5 10*3/uL (1.3-4.4); LYMPH % 16.2 % (27.0-41.0); MEAN CELL VOLUME 94.8 fl (81.0-99.0); MEAN CORPUSCULAR HGB 30.8 pg (27.0-31.0); MEAN CORPUSCULAR HGB CONC 32.5 g/dl (33.0-37.0); MONO # 0.7 10*3/uL (0.1-1.0); MONO % 7.8 % (3.0-9.0); NEUT # 6.7 10*3/uL (2.3-7.9); NEUT % 72.9 % (47.0-73.0); PLATELET COUNT AUTOMATED 217 10*3/uL (130-400); RED BLOOD COUNT 4.22 10*6/uL (4.10-5.10); RED CELL DISTRI WIDTH 15.1 % (0-14.5); WHITE BLOOD COUNT 9.2 10*3/uL (4.8-10.8)
[2019-08-06 13:38] LABS: ALBUMIN 3.2 gm/dl (3.1-4.5); ALKALINE PHOSPHATASE 95 U/L (45-117); BUN 10 mg/dl (7-24); CHLORIDE 109 mmol/L (98-107); CREATININE 0.79 mg/dL (0.55-1.02); SGOT/AST 45 IU/L (3-35); SGPT/ALT 112 U/L (12-78); SODIUM 141 mmol/L (136-145); TOTAL PROTEIN 6.8 gm/dL (6.4-8.2); TROPONIN I 0.017 ng/ml (<0.045)
[2019-08-06] MEDS ORDERED: AVPAK AZITHROM250 MG PO (17:43)
== END 2019-08-06 14:02 | disposition left against medical advice (07) ==
LOC: ED 10:33
PROVIDERS: Emergency Medicine
DX: J18.9 Pneumonia, unspecified organism (principal); J44.9 Chronic obstructive pulmonary disease, unspecified; I25.10 Atherosclerotic heart disease of native coronary artery without angina pectoris; F41.9 Anxiety disorder, unspecified; F31.9 Bipolar disorder, unspecified; R56.9 Unspecified convulsions; F17.200 Nicotine dependence, unspecified, uncomplicated; Z91.012 Allergy to eggs; Z91.041 Radiographic dye allergy status; Z88.8 Allergy status to other drugs, medicaments and biological substances; Z79.899 Other long term (current) drug therapy; Z79.2 Long term (current) use of antibiotics; M81.0 Age-related osteoporosis without current pathological fracture; Z90.49 Acquired absence of other specified parts of digestive tract; Z90.710 Acquired absence of both cervix and uterus

== ENCOUNTER 2019-09-18 09:50 | Emergency (ER) | payer OTHER ==
[~2019-09-18] VITALS: Ht 160 cm; Wt 77.1 kg
[~2019-09-18 09:50] MED LIST changes: +AVPAK AZITHROM250 MG PO
[2019-09-18 09:58] VITALS: BP 152/75
[2019-09-18] MEDS ORDERED: CLINDAMYCIN HC300 MG PO (10:15)
[2019-09-18] MEDS ORDERED: NORCO 5-325 TA1 EACH PO (10:15)
== END 2019-09-18 10:35 | disposition home or self-care (01) ==
LOC: ED 09:50
DX: K04.7 Periapical abscess without sinus (principal); J44.9 Chronic obstructive pulmonary disease, unspecified; F31.9 Bipolar disorder, unspecified; R56.9 Unspecified convulsions; F41.9 Anxiety disorder, unspecified; M81.0 Age-related osteoporosis without current pathological fracture; Z88.8 Allergy status to other drugs, medicaments and biological substances; Z91.041 Radiographic dye allergy status; Z91.012 Allergy to eggs; Z79.899 Other long term (current) drug therapy; Z79.2 Long term (current) use of antibiotics; Z90.49 Acquired absence of other specified parts of digestive tract; Z90.710 Acquired absence of both cervix and uterus

== ENCOUNTER 2019-10-04 11:25 | Inpatient (IN) | payer OTHER ==
[~2019-10-04] VITALS: Ht 160 cm; Wt 73.9 kg
[2019-10-04 11:33] VITALS: BP 124/63
[2019-10-04 11:58] LABS: BASO # 0.1 10*3/uL (0.0-0.1); BASO % 0.6 % (0.0-1.0); EOS # 0.1 10*3/uL (0.0-0.4); HEMATOCRIT 39.4 % (37.0-47.0); MEAN CORPUSCULAR HGB 30.8 pg (27.0-31.0); MEAN CORPUSCULAR HGB CONC 32.7 g/dl (33.0-37.0); MEAN PLATELET VOLUME 9.7 fl (9.6-12.3); MONO # 0.6 10*3/uL (0.1-1.0); MONO % 6.5 % (3.0-9.0); NEUT # 5.9 10*3/uL (2.3-7.9); NEUT % 68.7 % (47.0-73.0); PLATELET COUNT AUTOMATED 258 10*3/uL (130-400); RED BLOOD COUNT 4.19 10*6/uL (4.10-5.10); RED CELL DISTRI WIDTH 13.3 % (0-14.5); WHITE BLOOD COUNT 8.6 10*3/uL (4.8-10.8)
[2019-10-04 12:07] LABS: INTERNATIONAL NORM RATIO 1.1 (2.0-3.5)
[2019-10-04 12:14] LABS: ALBUMIN 3.4 gm/dl (3.1-4.5); ALKALINE PHOSPHATASE 70 U/L (45-117); BUN 9 mg/dl (7-24); CHLORIDE 103 mmol/L (98-107); CREATININE 0.95 mg/dL (0.55-1.02); LIPASE 62 U/L (73-393); POTASSIUM 3.7 mmol/L (3.5-5.1); SGOT/AST 18 IU/L (3-35); SGPT/ALT 24 U/L (12-78); SODIUM 137 mmol/L (136-145); TOTAL PROTEIN 7.2 gm/dL (6.4-8.2)
[2019-10-04 12:16] LABS: PHENYTOIN (DILANTIN) 0.8 ug/ml (10-20); TROPONIN I 0.089 ng/ml (<0.045)
[2019-10-04 12:38] LABS: BACTERIA 1+; BILIRUBIN NEGATIVE (NEGATIVE); BLOOD NEGATIVE (NEGATIVE); CLARITY SL CLOUDY (CLEAR); COLOR YELLOW (YELLOW); EPITHELIAL CELLS 16-20; GLUCOSE NEGATIVE (NEGATIVE); KETONE NEGATIVE (NEGATIVE); LEUKO ESTERASE NEGATIVE (NEGATIVE); NITRITE NEGATIVE (NEGATIVE); SPECIFIC GRAVITY 1.015 (1.005-1.030); UROBILINOGEN 0.2 E.U./dl (0.2-1.0)
[2019-10-04 12:39] LABS: MUCOUS 1+
[2019-10-04 15:07] VITALS: BP 127/64
[2019-10-04] MEDS ORDERED: CLONIDINE HCL0.1 MG PO (15:27)
[2019-10-04] MEDS ORDERED: LIPITOR40 MG PO (15:28)
[2019-10-04 15:34] VITALS: BP 133/65
[2019-10-04 16:04] VITALS: BP 133/65
--- NOTE | 2019-10-04 16:14 | NUR ---
ANA MARIA DECKER GLOST PLACER NOTIFIED OF TROP 0.078. SAID SHE WOULD CONSULT CARDIO. NGUYEN FORREST NOTIFIED.
[2019-10-04] MEDS ORDERED: 'CLONIDINE0.1 MG PO (16:45)
[2019-10-04] MEDS ORDERED: DILANTIN100 MG PO (16:45)
--- NOTE | 2019-10-04 17:00 | NUR ---
CARDIOLOGY ANSWERING SERVICE AWARE OF NEW CONSULT, MESSAGE TAKEN
--- NOTE | 2019-10-04 17:02 | NUR ---
DR COULTER NOTIFIED THAT HOME MEDICAITONS ARE UPDATED/VARIFIED WITH PATIENT AND PATIENT REQUESTING PAIN MEDICATION "STRONGER THAN TYLENOL". DR. COULTER WILL LOOK AT CHART AND PLACE ORDERS APPROPRIATE
--- NOTE | 2019-10-04 17:44 | NUR ---
PT STATES THROBBING BURNING PAIN BILATERAL LOWER LEGS, TORADOL GIVEN ORDERED. WILL MONITOR FOR EFFECTIVENESS
--- NOTE | 2019-10-04 18:54 | NUR ---
DR. BRIAN NOTIFIED OF CRITICAL TROPONIN OF 0.072, NO NEW ORDERS AT THIS TIME
--- NOTE | 2019-10-04 19:22 | NUR ---
PER DR. BRIAN REQUEST, CALLED CARDIOLOGY ANSWERING SERVICE TO NOTIFY OF PATIENTS TROPONINS. AWAIT CALL BACK.
--- NOTE | 2019-10-04 19:47 | NUR ---
DR. MOE MADE AWARE OF TROPONINS. NO NEW ORDERS RECEIVED STATED UNLESS TROPONINS INCREASE GREATLY DONT CALL. WILL CONTINUE TO MONITOR.
--- NOTE | 2019-10-04 19:53 | NUR ---
PATIENT STILL COMPLAINING OF BLE PAIN. RATES 01/28. REFUSING TO TRY TYLENOL. STATES IT WONT HELP. NOTIFIED DR. BRIAN. PER DR. BRIAN OKAY TO ORDER A ONE TIME DOSE OF PERCOCET.
[2019-10-04 19:58] VITALS: BP 130/82
--- NOTE | 2019-10-04 20:20 | NUR ---
PATIENT MEDICATED WITH A ONE TIME DOSE OF PERCOCET. RATES PAIN 10/10. DESCRIBES IT A BURNING FEELING DUE TO HER LEG/FEET SWELLING. WILL CHECK EFFECTIVENESS.
--- NOTE | 2019-10-04 21:49 | NUR ---
PATIENT STATES PERCOCET WAS EFFECTIVE. WILL CONTINUE TO MONITOR.
[2019-10-05] VITALS: BP 141/77
--- NOTE | 2019-10-05 05:11 | NUR ---
PATIENT REQUESTING XANEX FOR ANIEXTY. MEDICATED AT THIS TIME. WILL CHECK EFFECTIVENESS.
[2019-10-05 06:11] LABS: ALBUMIN 3.1 gm/dl (3.1-4.5); ALKALINE PHOSPHATASE 62 U/L (45-117); BUN 17 mg/dl (7-24); CHLORIDE 108 mmol/L (98-107); CHOLESTEROL 324 mg/dL (<200); CREATININE 0.73 mg/dL (0.55-1.02); HDL CHOLESTEROL 58 mg/dl (40-60); LDL CHOLESTEROL 230 mg/dL (9-159); POTASSIUM 4.1 mmol/L (3.5-5.1); SGOT/AST 15 IU/L (3-35); SGPT/ALT 21 U/L (12-78); SODIUM 139 mmol/L (136-145); TOTAL PROTEIN 6.5 gm/dL (6.4-8.2); TRIGLYCERIDES 180 mg/dl (<150); VLDL CHOLESTEROL 36 mg/dL (6-40)
[2019-10-05 06:24] LABS: BASO % 0.3 % (0.0-1.0); HEMATOCRIT 37.7 % (37.0-47.0); LYMPH # 0.9 10*3/uL (1.3-4.4); LYMPH % 12.9 % (27.0-41.0); MEAN CORPUSCULAR HGB 30.2 pg (27.0-31.0); MEAN CORPUSCULAR HGB CONC 32.9 g/dl (33.0-37.0); MEAN PLATELET VOLUME 10.5 fl (9.6-12.3); MONO # 0.4 10*3/uL (0.1-1.0); NEUT # 5.8 10*3/uL (2.3-7.9); NEUT % 80.5 % (47.0-73.0); PLATELET COUNT AUTOMATED 272 10*3/uL (130-400); RED CELL DISTRI WIDTH 13.1 % (0-14.5); WHITE BLOOD COUNT 7.2 10*3/uL (4.8-10.8)
--- NOTE | 2019-10-05 06:45 | NUR ---
PATIENT SLEEPING, XANEX EFFECTIVE
[2019-10-05 08:00] VITALS: BP 100/41; BP 110/54
--- NOTE | 2019-10-05 09:00 | NUR ---
Parking Garage Manager in to talk to patient. Patient states lives at home alone with her family checking in on her. There are 20 steps in the home. Physician: Andrés Salinas [facility]: [facility] Home health services: none Patient's level of ADLs: INDEPENDENT Patient has working utilities: yes DME: nebulizer Follow-up physician's appointment after d/c: will be made by the hospitalist nurse director upon discharge Does patient want to access PORTAL?: no Discharge plan discussed with patient. She lives at home with her dog. She is independent in her ADLs and ambulation. Discussed home health care services and she denies any home needs at this time. When medically stable she will be discharged to home. She states her girlfriend will provide transportation on discharge. WESLEY SHANKS
--- NOTE | 2019-10-05 11:38 | NUR ---
PT C/O OF ANXIETY PRN XANAX GIVEN PER ORDER
[2019-10-05 12:00] VITALS: BP 112/48
[2019-10-05 16:00] VITALS: BP 120/48
[2019-10-05 20:00] VITALS: BP 112/52
--- NOTE | 2019-10-05 22:32 | NUR ---
PATIENT C/O ANXIETY, REQUESTING XANEX. MEDICATED AT THIS TIME. WILL CHECK EFFECTIVENESS.
[2019-10-06] VITALS: BP 122/56
[2019-10-06 08:00] VITALS: BP 130/66
--- NOTE | 2019-10-06 09:00 | NUR ---
Animal Care Provider in to see patient. No new needs or request at this time. She denies any home needs. When medically stable she will be discharged to home.
[2019-10-06 12:00] VITALS: BP 126/61
[2019-10-06] MEDS ORDERED: ZITHROMAX500 MG PO (12:58)
[2019-10-06] MEDS ORDERED: OMNICEF300 MG PO (12:58)
--- NOTE | 2019-10-06 13:22 | NUR ---
Discharge instructions reviewed with patient/family. Patient receptive and verbalizes understanding. Follow-up care arranged. Written instructions given to patient/family. ALEJANDRA BENOIT
== END 2019-10-06 13:22 | disposition home or self-care (01) | DRG 190 ==
LOC: ED 11:25 → EDHOLD 14:28 → 5E 14:28
PROVIDERS: Emergency Medicine; Registered Nurse; ADMIT Family Medicine
DX: J44.1 Chronic obstructive pulmonary disease with (acute) exacerbation (principal); I21.A1 Myocardial infarction type 2; E43 Unspecified severe protein-calorie malnutrition; M94.0 Chondrocostal junction syndrome [Tietze]; R42 Dizziness and giddiness; I10 Essential (primary) hypertension; I25.10 Atherosclerotic heart disease of native coronary artery without angina pectoris; G40.909 Epilepsy, unspecified, not intractable, without status epilepticus; E83.41 Hypermagnesemia; F41.9 Anxiety disorder, unspecified; R19.7 Diarrhea, unspecified; F31.9 Bipolar disorder, unspecified; R73.9 Hyperglycemia, unspecified; E78.2 Mixed hyperlipidemia; B19.20 Unspecified viral hepatitis C without hepatic coma; I08.1 Rheumatic disorders of both mitral and tricuspid valves; M81.0 Age-related osteoporosis without current pathological fracture; Z87.891 Personal history of nicotine dependence; I25.2 Old myocardial infarction; Z87.01 Personal history of pneumonia (recurrent); Z90.49 Acquired absence of other specified parts of digestive tract; Z90.710 Acquired absence of both cervix and uterus; Z92.21 Personal history of antineoplastic chemotherapy; Z92.3 Personal history of irradiation; Z82.49 Family history of ischemic heart disease and other diseases of the circulatory system; Z83.3 Family history of diabetes mellitus; Z88.7 Allergy status to serum and vaccine; Z88.6 Allergy status to analgesic agent; Z88.1 Allergy status to other antibiotic agents; Z91.041 Radiographic dye allergy status; Z91.012 Allergy to eggs; Z88.8 Allergy status to other drugs, medicaments and biological substances; Z79.899 Other long term (current) drug therapy; Z71.6 Tobacco abuse counseling; Z91.14 Patient's other noncompliance with medication regimen; Z98.891 History of uterine scar from previous surgery; Z80.8 Family history of malignant neoplasm of other organs or systems; Z68.28 Body mass index [BMI] 28.0-28.9, adult

== ENCOUNTER 2019-10-15 05:08 | Observation (INO) | payer OTHER ==
[~2019-10-15] VITALS: Ht 160 cm; Wt 71.4 kg
[2019-10-15] VITALS (7 sets, daily range): BP systolic 111–160; BP diastolic 55–82
[~2019-10-15 05:08] MED LIST changes: +CLONIDINE HCL0.1 MG PO
[2019-10-15 05:48] LABS: BASO % 0.5 % (0.0-1.0); EOS # 0.2 10*3/uL (0.0-0.4); EOS % 3.1 % (1.0-4.0); HEMATOCRIT 42.7 % (37.0-47.0); LYMPH # 1.6 10*3/uL (1.3-4.4); LYMPH % 28.4 % (27.0-41.0); MEAN CELL VOLUME 90.1 fl (81.0-99.0); MEAN CORPUSCULAR HGB 30.4 pg (27.0-31.0); MEAN CORPUSCULAR HGB CONC 33.7 g/dl (33.0-37.0); MEAN PLATELET VOLUME 9.8 fl (9.6-12.3); MONO # 0.6 10*3/uL (0.1-1.0); MONO % 9.5 % (3.0-9.0); NEUT # 3.4 10*3/uL (2.3-7.9); NEUT % 58.3 % (47.0-73.0); PLATELET COUNT AUTOMATED 262 10*3/uL (130-400); RED BLOOD COUNT 4.74 10*6/uL (4.10-5.10); RED CELL DISTRI WIDTH 13.3 % (0-14.5); WHITE BLOOD COUNT 5.8 10*3/uL (4.8-10.8)
[2019-10-15 06:00] LABS: ALBUMIN 4.1 gm/dl (3.1-4.5); ALKALINE PHOSPHATASE 84 U/L (45-117); BUN 13 mg/dl (7-24); CHLORIDE 106 mmol/L (98-107); CREATININE 0.75 mg/dL (0.55-1.02); POTASSIUM 3.5 mmol/L (3.5-5.1); SGOT/AST 58 IU/L (3-35); SGPT/ALT 48 U/L (12-78); SODIUM 138 mmol/L (136-145); TOTAL PROTEIN 8.3 gm/dL (6.4-8.2); TROPONIN I 0.025 ng/ml (<0.045)
[2019-10-15 06:15] LABS: ACT PARTIAL THROMBO TIME 30.5 SECONDS (20.0-32.1)
--- NOTE | 2019-10-15 07:10 | NUR ---
NURSE TO NURSE TO MANISHA MOSLEY RN
--- NOTE | 2019-10-15 07:20 | NUR ---
PATIENT STATES SHE WAS ADMITTED TWO WEEKS AGO FOR THE SAME THING AFTER DISCHARGE SHE NEVER GOT HER MEDICATIONS FILLED. PATIENT EXPLAINED THE IMPORTANCE OF FOLLOWING WITH PROVIDED PLAN OF CARE. DISCUSSED PROPER DIET, EXCERCISE AND SMOKING CESSATION.
--- NOTE | 2019-10-15 07:28 | NUR ---
FAXED SBAR TO 4E
--- NOTE | 2019-10-15 07:50 | NUR ---
A 63, admitted to , under the services of ELLEN Howard DO with a diagnosis of CHEST PAIN. Chief complaint is CHEST PAIN. Patient arrived via bed from ER. Monitor applied. Initial assessment completed. Vital signs taken and recorded. ELLEN HOWARD DO notified of admission to the unit. Orders received. See assessment for past medical history, medications and allergies. Patient and/or family oriented to unit. [facility] visitation policy reviewed. Clothing/patient valuable form completed. MANISHA HUNTER
--- NOTE | 2019-10-15 08:37 | NUR ---
RAYMOND FROM CT CALLS THIS NURSE AND STATES THAT PT HAS ALLERGY TO IVP DYE AND THAT SHE WILL EITHER NEED A 13 HOUR PRE MED OR ORDER NEEDS CHANGED TO CT OF CHEST WITHOUT CONTRAST. DR LUZ NOTIFIED AND STATES TO CHANGE ORDER TO WITHOUT CONTRAST. CHANGES MADE AND CT NOTIFIED.
--- NOTE | 2019-10-15 09:43 | NUR ---
PT GIVEN TYLENOL FOR C/O PAIN TO BILATERAL LEGS. WILL MONITOR FOR EFFECTIVENESS. CALL LIGHT IN REACH.
--- NOTE | 2019-10-15 10:43 | NUR ---
TYLENOL EFFECTIVE PER PT.
--- NOTE | 2019-10-15 12:02 | NUR ---
PT GIVEN 1 MG XANAX PER PRN ORDERS FOR C/O ANXIETY. WILL MONITOR FOR EFFECTIVENESS. PT RESTING IN BED. CALL LIGHT IN REACH.
--- NOTE | 2019-10-15 13:02 | NUR ---
XANAX EFFECTIVE PER PT.
--- NOTE | 2019-10-15 13:45 | NUR ---
PT GIVEN MORPHINE FOR C/O PAIN TO BILATERAL LEGS. WILL MONITOR FOR EFFECTIVENESS. PT SITTING UP IN BED. DAUGHTER AT BEDSIDE. CALL LIGHT IN REACH.
--- NOTE | 2019-10-15 14:45 | NUR ---
PT STATES THAT MORPHINE IS EFFECTIVE.
--- NOTE | 2019-10-15 17:54 | NUR ---
PT GIVEN NORCO FOR C/O PAIN TO BILATERAL LEGS. WILL MONITOR FOR EFFECTIVENESS. CALL LIGHT IN REACH.
--- NOTE | 2019-10-15 18:40 | NUR ---
PT PLACED ON 2L NC PER PT REQUEST FOR COMFORT. PT PULSE OX WNL. NO S/S OF RESPIRATORY DISTRESS. WILL CONTINUE TO MONITOR.
--- NOTE | 2019-10-15 18:54 | NUR ---
ALIE EFFECTIVE PER PT.
--- NOTE | 2019-10-15 20:16 | NUR ---
MEDICATED WITH MS FOR C/O BILATERAL LEG PAIN RATED A 10/10.
--- NOTE | 2019-10-15 21:00 | NUR ---
RESTING IN BED WITH EYES CLOSED; MS APPARENTLY EFFECTIVE.
[2019-10-16] VITALS: BP 108/62
--- NOTE | 2019-10-16 02:56 | NUR ---
MEDICATED WITH MS FOR C/O KNEE PAIN.
--- NOTE | 2019-10-16 03:15 | NUR ---
RESTING IN BED WITH EYES CLOSED; MS APPARENTLY EFFECTIVE.
--- NOTE | 2019-10-16 05:40 | NUR ---
MEDICATED WITH NOROC FOR C/O KNEE/LEG PAIN & ALSO MEDICATED WITH XANAX FOR C/O ANXIETY.
[2019-10-16 06:31] LABS: BUN 13 mg/dl (7-24); CHLORIDE 105 mmol/L (98-107); CHOLESTEROL 254 mg/dL (<200); CREATININE 0.76 mg/dL (0.55-1.02); POTASSIUM 3.5 mmol/L (3.5-5.1); SODIUM 138 mmol/L (136-145); TRIGLYCERIDES 246 mg/dl (<150); VLDL CHOLESTEROL 49 mg/dL (6-40)
[2019-10-16 06:40] LABS: FREE T4 0.85 ng/dl (0.76-1.46); HDL CHOLESTEROL 47 mg/dl (40-60); LDL CHOLESTEROL 158 mg/dL (9-159)
[2019-10-16 06:41] LABS: BASO % 0.5 % (0.0-1.0); EOS # 0.3 10*3/uL (0.0-0.4); EOS % 3.1 % (1.0-4.0); HEMATOCRIT 36.2 % (37.0-47.0); LYMPH # 1.9 10*3/uL (1.3-4.4); MEAN CORPUSCULAR HGB 30.2 pg (27.0-31.0); MEAN CORPUSCULAR HGB CONC 32.3 g/dl (33.0-37.0); MEAN PLATELET VOLUME 10.3 fl (9.6-12.3); MONO # 0.8 10*3/uL (0.1-1.0); MONO % 9.2 % (3.0-9.0); NEUT # 5.5 10*3/uL (2.3-7.9); PLATELET COUNT AUTOMATED 215 10*3/uL (130-400); RED BLOOD COUNT 3.87 10*6/uL (4.10-5.10); RED CELL DISTRI WIDTH 13.7 % (0-14.5); WHITE BLOOD COUNT 8.5 10*3/uL (4.8-10.8)
[2019-10-16 06:46] LABS: MEAN CELL VOLUME 93.5 fl (81.0-99.0)
[2019-10-16 07:03] LABS: VITAMIN D, 25-HYDROXY 22.9 ng/mL (30-100)
--- NOTE | 2019-10-16 08:40 | NUR ---
Airplane Rigger in to talk to patient. Patient states lives at home alone with her family checking in on her. There are 20 steps in the home. Physician: Andrés Salinas Pharmacy: [facility] Home health services: none Patient's level of ADLs: INDEPENDENT Patient has working utilities: yes DME: nebulizer Follow-up physician's appointment after d/c: will be made by the hospitalist nurse director upon discharge Does patient want to access PORTAL?: no Discharge plan discussed with patient. She lives at home with her dog. She is independent in her ADLs and ambulation. She states she walks her dog everyday but her multiple steps are getting to her. She is going to look for an apartment with less steps. Discussed home health care services and she denies any home needs at this time. She said the doctor is going to test her for home oxygen and start her on breathing treatments today and an antibiotic because she started to cough and bring phlegm up last night. When medically stable she will be discharged to home. She states her girlfriend will provide transportation on discharge. WESLEY SHANKS
--- NOTE | 2019-10-16 09:17 | NUR ---
PT GIVEN 1 MG MORPHINE AT THIS TIME FOR C/O PAIN TO BILATERAL LEGS. WILL MONITOR FOR EFFECTIVENESS. PT LYING IN BED. CALL LIGHT IN REACH.
[2019-10-16 09:27] VITALS: BP 110/64
--- NOTE | 2019-10-16 10:17 | NUR ---
MORPHINE EFFECTIVE PER PT.
--- NOTE | 2019-10-16 10:55 | NUR ---
HOME O2 ASSESSMENT ROOM AIR AT REST: SPO2 93% HR 82 RR 16 BP 112/68 ROOM AIR WITH AMBULATION: SPO2 91-93% HR 80-86 RECOVERY ON ROOM AIR: SPO2 92% HR 88 RR 20 BP 122/58 PT. DID NOT REQUIRE SUPPLEMENTAL O2 AT REST OR WITH EXERTION. NO C/O OF SHORTNESS OF BREATH. RN NOTIFIED.
--- NOTE | 2019-10-16 11:18 | NUR ---
RESPIRATORY THERAPIST NOTIFIES THIS NURSE THAT PT DOES NOT QUALIFY FOR HOME O2. WILL CALL PHYSICIANS REGARDING THIS.
[2019-10-16] MEDS ORDERED: IMDUR SA30 MG PO (11:21)
--- NOTE | 2019-10-16 11:30 | NUR ---
DR TSANG NOTIFIED THAT PT DOES NOT QUALIFY FOR HOME OXYGEN.
--- NOTE | 2019-10-16 12:10 | NUR ---
Discharge instructions reviewed with patient/family. Patient receptive and verbalizes understanding. Follow-up care arranged. Written instructions given to patient/family. MANISHA HUNTER
--- NOTE | 2019-10-16 12:35 | NUR ---
PT LEAVES FLOOR VIA W/C AT THIS TIME FOR DISCHARGE. SON IS IN ED PARKING LOT WAITING ON PT.
--- NOTE | 2019-10-16 15:20 | NUR ---
Assessment done at 11:00am. Pt laying quietly in bed, alert and oriented. Patient addmitted with substernal chest pain that she describes as burning and sharp. She also complains of bilateral leg pain and shortness of breath when climbing stairs. Pt visibly flinches when medical left knee area is palpated. Trace ankle edema bilaterally of the lower legs noticed. She also has diminished breath sounds of the left lower lobe and remaining lung simpson clear. Walk test done to assess for home oxygen, pt did not qualify. IV removed from left forearm, no bleeding, pressure dressing applied, pt tolerated well. Pt discharged with recommendation to follow up with vascular specialist. Pt was given prescription for Irving #8 prn for at home pain control. Discharge education including smoking cessation and chest pain given by duty nurse. Susan COFFMAN OVCT/ Danielle STUBBS/Nicole Hoffmann RN
== END 2019-10-16 12:35 | disposition home or self-care (01) ==
LOC: ED 05:08 → 4E 06:41 → EDHOLD 06:41 → 4E 07:19
PROVIDERS: Emergency Medicine; Internal Medicine; ADMIT Emergency Medicine
DX: R07.89 Other chest pain (principal); E83.41 Hypermagnesemia; R74.0 Nonspecific elevation of levels of transaminase and lactic acid dehydrogenase [LDH]; E55.9 Vitamin D deficiency, unspecified; G40.909 Epilepsy, unspecified, not intractable, without status epilepticus; E78.5 Hyperlipidemia, unspecified; I10 Essential (primary) hypertension; I25.2 Old myocardial infarction; F31.9 Bipolar disorder, unspecified; J44.1 Chronic obstructive pulmonary disease with (acute) exacerbation; Z91.19 Patient's noncompliance with other medical treatment and regimen; F17.210 Nicotine dependence, cigarettes, uncomplicated

== ENCOUNTER 2019-10-19 09:47 | Emergency (ER) | payer OTHER ==
[~2019-10-19] VITALS: Ht 160 cm; Wt 73.9 kg
[~2019-10-19 09:47] MED LIST changes: +IMDUR SA30 MG PO
[2019-10-19 10:40] LABS: BASO % 0.5 % (0.0-1.0); EOS # 0.2 10*3/uL (0.0-0.4); EOS % 2.2 % (1.0-4.0); HEMATOCRIT 39.7 % (37.0-47.0); LYMPH # 1.5 10*3/uL (1.3-4.4); LYMPH % 20.1 % (27.0-41.0); MEAN CELL VOLUME 91.7 fl (81.0-99.0); MEAN CORPUSCULAR HGB CONC 32.7 g/dl (33.0-37.0); MEAN PLATELET VOLUME 9.9 fl (9.6-12.3); MONO # 0.5 10*3/uL (0.1-1.0); MONO % 5.9 % (3.0-9.0); NEUT # 5.4 10*3/uL (2.3-7.9); NEUT % 71.2 % (47.0-73.0); PLATELET COUNT AUTOMATED 237 10*3/uL (130-400); RED BLOOD COUNT 4.33 10*6/uL (4.10-5.10); RED CELL DISTRI WIDTH 12.8 % (0-14.5); WHITE BLOOD COUNT 7.7 10*3/uL (4.8-10.8)
[2019-10-19 10:51] LABS: ACT PARTIAL THROMBO TIME 29.3 SECONDS (20.0-32.1)
[2019-10-19 10:54] LABS: ALBUMIN 3.2 gm/dl (3.1-4.5); ALKALINE PHOSPHATASE 67 U/L (45-117); BUN 12 mg/dl (7-24); CHLORIDE 106 mmol/L (98-107); CREATININE 0.73 mg/dL (0.55-1.02); POTASSIUM 4.3 mmol/L (3.5-5.1); SGOT/AST 19 IU/L (3-35); SGPT/ALT 28 U/L (12-78); SODIUM 137 mmol/L (136-145)
[2019-10-19 12:50] VITALS: BP 159/70
== END 2019-10-19 13:37 | disposition left against medical advice (07) ==
LOC: ED 09:47
PROVIDERS: Emergency Medicine
DX: M79.604 Pain in right leg (principal); F17.200 Nicotine dependence, unspecified, uncomplicated; Z91.041 Radiographic dye allergy status; Z91.012 Allergy to eggs; Z88.1 Allergy status to other antibiotic agents; Z88.7 Allergy status to serum and vaccine; Z88.8 Allergy status to other drugs, medicaments and biological substances; Z79.899 Other long term (current) drug therapy

== ENCOUNTER 2019-10-19 16:01 | Emergency (ER) | payer OTHER ==
[~2019-10-19] VITALS: Ht 160 cm; Wt 73.9 kg
[2019-10-19 16:16] LABS: BASO % 0.4 % (0.0-1.0); EOS % 0.1 % (1.0-4.0); HEMATOCRIT 43.6 % (37.0-47.0); LYMPH # 0.8 10*3/uL (1.3-4.4); LYMPH % 9.4 % (27.0-41.0); MEAN CELL VOLUME 89.2 fl (81.0-99.0); MEAN CORPUSCULAR HGB 30.3 pg (27.0-31.0); MEAN CORPUSCULAR HGB CONC 33.9 g/dl (33.0-37.0); MONO # 0.1 10*3/uL (0.1-1.0); MONO % 0.6 % (3.0-9.0); NEUT # 7.2 10*3/uL (2.3-7.9); NEUT % 89.1 % (47.0-73.0); PLATELET COUNT AUTOMATED 281 10*3/uL (130-400); RED BLOOD COUNT 4.89 10*6/uL (4.10-5.10); WHITE BLOOD COUNT 8.1 10*3/uL (4.8-10.8)
[2019-10-19 16:34] LABS: ALBUMIN 3.6 gm/dl (3.1-4.5); ALKALINE PHOSPHATASE 78 U/L (45-117); BUN 11 mg/dl (7-24); CHLORIDE 105 mmol/L (98-107); CREATININE 1.03 mg/dL (0.55-1.02); POTASSIUM 4.4 mmol/L (3.5-5.1); SGOT/AST 34 IU/L (3-35); SGPT/ALT 33 U/L (12-78); SODIUM 138 mmol/L (136-145); TOTAL PROTEIN 8.3 gm/dL (6.4-8.2)
[2019-10-19 16:52] LABS: ACT PARTIAL THROMBO TIME 29.5 SECONDS (20.0-32.1)
[2019-10-19 17:07] VITALS: BP 136/64
== END 2019-10-19 18:32 | disposition left against medical advice (07) ==
LOC: ED 16:01
PROVIDERS: Emergency Medicine
DX: R07.89 Other chest pain (principal); I25.10 Atherosclerotic heart disease of native coronary artery without angina pectoris; I10 Essential (primary) hypertension; M81.0 Age-related osteoporosis without current pathological fracture; G40.909 Epilepsy, unspecified, not intractable, without status epilepticus; E78.5 Hyperlipidemia, unspecified; J44.9 Chronic obstructive pulmonary disease, unspecified; F17.200 Nicotine dependence, unspecified, uncomplicated; Z91.041 Radiographic dye allergy status; Z91.012 Allergy to eggs; Z88.6 Allergy status to analgesic agent; Z88.1 Allergy status to other antibiotic agents; Z88.7 Allergy status to serum and vaccine; Z79.899 Other long term (current) drug therapy

== ENCOUNTER 2019-11-30 08:47 | Emergency (ER) | payer OTHER ==
[~2019-11-30] VITALS: Ht 160 cm; Wt 71.7 kg
[2019-11-30 08:53] VITALS: BP 129/75
[2019-11-30 09:49] LABS: BASO # 0.1 10*3/uL (0.0-0.1); BASO % 0.7 % (0.0-1.0); EOS # 0.1 10*3/uL (0.0-0.4); EOS % 0.7 % (1.0-4.0); HEMATOCRIT 41.1 % (37.0-47.0); LYMPH # 1.5 10*3/uL (1.3-4.4); LYMPH % 16.7 % (27.0-41.0); MEAN CELL VOLUME 90.3 fl (81.0-99.0); MEAN CORPUSCULAR HGB 29.7 pg (27.0-31.0); MEAN CORPUSCULAR HGB CONC 32.8 g/dl (33.0-37.0); MEAN PLATELET VOLUME 10.6 fl (9.6-12.3); MONO # 0.6 10*3/uL (0.1-1.0); MONO % 6.8 % (3.0-9.0); NEUT # 6.6 10*3/uL (2.3-7.9); NEUT % 74.9 % (47.0-73.0); PLATELET COUNT AUTOMATED 246 10*3/uL (130-400); RED BLOOD COUNT 4.55 10*6/uL (4.10-5.10); RED CELL DISTRI WIDTH 13.8 % (0-14.5); WHITE BLOOD COUNT 8.8 10*3/uL (4.8-10.8)
[2019-11-30 10:04] LABS: ALBUMIN 3.4 gm/dl (3.1-4.5); ALKALINE PHOSPHATASE 61 U/L (45-117); BUN 13 mg/dl (7-24); CHLORIDE 105 mmol/L (98-107); CREATININE 0.86 mg/dL (0.55-1.02); POTASSIUM 3.6 mmol/L (3.5-5.1); SGOT/AST 15 IU/L (3-35); SGPT/ALT 25 U/L (12-78); SODIUM 139 mmol/L (136-145); TOTAL PROTEIN 6.8 gm/dL (6.4-8.2); TROPONIN I 0.032 ng/ml (<0.045)
[2019-11-30 10:35] LABS: BILIRUBIN NEGATIVE (NEGATIVE); BLOOD NEGATIVE (NEGATIVE); CLARITY CLEAR (CLEAR); COLOR YELLOW (YELLOW); GLUCOSE NEGATIVE (NEGATIVE); KETONE NEGATIVE (NEGATIVE)
[2019-11-30 10:36] LABS: BACTERIA 1+; LEUKO ESTERASE NEGATIVE (NEGATIVE); NITRITE NEGATIVE (NEGATIVE); UROBILINOGEN 0.2 E.U./dl (0.2-1.0); WBC 0-2 wbc/hpf (0-5)
[2019-11-30] MEDS ORDERED: IMODIUM A-D2 M2 PO (11:36)
[2019-11-30] MEDS ORDERED: ZOFRAN4 MG PO (11:36)
== END 2019-11-30 11:40 | disposition home or self-care (01) ==
LOC: ED 08:47
PROVIDERS: Emergency Medicine
DX: K52.9 Noninfective gastroenteritis and colitis, unspecified (principal); J44.9 Chronic obstructive pulmonary disease, unspecified; R56.9 Unspecified convulsions; F31.9 Bipolar disorder, unspecified; M81.0 Age-related osteoporosis without current pathological fracture; F41.9 Anxiety disorder, unspecified; F17.200 Nicotine dependence, unspecified, uncomplicated; Z88.8 Allergy status to other drugs, medicaments and biological substances; Z79.899 Other long term (current) drug therapy

== ENCOUNTER 2019-12-09 15:17 | Inpatient (IN) | payer OTHER ==
[~2019-12-09] VITALS: Ht 160 cm; Wt 69.2 kg
[~2019-12-09 15:17] MED LIST changes: +IMODIUM A-D2 M2 PO
--- NOTE | 2019-12-09 15:20 | NUR ---
CONFIRMED CODE STATUS WITH PATIENT SHE STATES THAT SHE WANTS TO BE A FULL CODE. DR BOURNE NOTIFIED.
--- NOTE | 2019-12-09 15:36 | NUR ---
ZOLL PADS APPLIED TO PATIENT.
[2019-12-09 15:37] VITALS: BP 139/61
[2019-12-09 15:50] LABS: BASO # 0.1 10*3/uL (0.0-0.1); BASO % 0.7 % (0.0-1.0); EOS # 0.2 10*3/uL (0.0-0.4); LYMPH # 2.1 10*3/uL (1.3-4.4); LYMPH % 28.6 % (27.0-41.0); MEAN CELL VOLUME 91.3 fl (81.0-99.0); MEAN CORPUSCULAR HGB 29.8 pg (27.0-31.0); MEAN CORPUSCULAR HGB CONC 32.6 g/dl (33.0-37.0); MEAN PLATELET VOLUME 10.5 fl (9.6-12.3); MONO # 0.7 10*3/uL (0.1-1.0); MONO % 8.7 % (3.0-9.0); NEUT # 4.5 10*3/uL (2.3-7.9); NEUT % 59.9 % (47.0-73.0); PLATELET COUNT AUTOMATED 245 10*3/uL (130-400); RED CELL DISTRI WIDTH 13.5 % (0-14.5); WHITE BLOOD COUNT 7.5 10*3/uL (4.8-10.8)
[2019-12-09 16:00] VITALS: BP 154/65
[2019-12-09 16:00] LABS: ACT PARTIAL THROMBO TIME 28.3 SECONDS (20.0-32.1)
[2019-12-09 16:06] LABS: LIPASE 68 U/L (73-393)
[2019-12-09 16:07] LABS: ALBUMIN 3.2 gm/dl (3.1-4.5); ALKALINE PHOSPHATASE 61 U/L (45-117); BUN 12 mg/dl (7-24); CHLORIDE 107 mmol/L (98-107); CREATININE 0.72 mg/dL (0.55-1.02); POTASSIUM 4.3 mmol/L (3.5-5.1); SGOT/AST 20 IU/L (3-35); SGPT/ALT 26 U/L (12-78); SODIUM 138 mmol/L (136-145); TOTAL PROTEIN 6.6 gm/dL (6.4-8.2)
[2019-12-09 16:08] LABS: TROPONIN I 0.032 ng/ml (<0.045)
[2019-12-09 16:15] VITALS: BP 152/60
[2019-12-09 16:30] VITALS: BP 161/63
[2019-12-09 16:41] VITALS: BP 148/60
--- NOTE | 2019-12-09 17:32 | NUR ---
PATIENT OFF OF NON REBREATHER. PATIENT PULSE OX IS 98% ON ROOM AIR.
[2019-12-09 18:00] VITALS: BP 136/59
--- NOTE | 2019-12-09 18:00 | NUR ---
A 63, admitted to [facility], under the services of LEE Cruz DO with a diagnosis of SYMPTOMATIC BRADYCARDIA AND CHEST PAIN. Chief complaint is DIZZINESS, EAR, JAW AND CHEST PAIN. Patient arrived via stretcher from ER. Monitor applied. Initial assessment completed. Vital signs taken and recorded. LEE CRUZ DO notified of admission to the unit. Orders received. See assessment for past medical history, medications and allergies. Patient and/or family oriented to unit. [facility] visitation policy reviewed. Clothing/patient valuable form completed. SANDIE MARLEY
--- NOTE | 2019-12-09 18:00 | NUR ---
REPORT GIVEN TO NAKITA CEDILLO AT THIS TIME. PATIENT TRANSPORTED BY FRANK CEDILLO TO [facility] TO BED 6.
--- NOTE | 2019-12-09 18:01 | NUR ---
WOUND PICTURES TAKEN AND CAMERA PLACED IN THE BASKET.
--- NOTE | 2019-12-09 18:47 | NUR ---
Attempt was made to contact DR. Cheng for consult notification . Unsuccessful as he has a mailbox that is not set up yet.
--- NOTE | 2019-12-09 18:53 | NUR ---
Dr. wing called in and was notified of consult. Requests update at [phone] .
[2019-12-10] VITALS (10 sets, daily range): BP systolic 89–151; BP diastolic 30–73
[2019-12-10 01:32] LABS: BILIRUBIN NEGATIVE (NEGATIVE); BLOOD NEGATIVE (NEGATIVE); CLARITY CLEAR (CLEAR); COLOR YELLOW (YELLOW); GLUCOSE NEGATIVE (NEGATIVE); KETONE NEGATIVE (NEGATIVE); LEUKO ESTERASE NEGATIVE (NEGATIVE); NITRITE NEGATIVE (NEGATIVE); PH 6.5 (5.0-9.0); UROBILINOGEN 0.2 E.U./dl (0.2-1.0)
--- NOTE | 2019-12-10 05:37 | NUR ---
PATIENTS HEART RATE HAS REMAINED MID 40'S TO 60'S WHE AWAKE THE PATIENT HAS HAD A COUPLE OF TIMES WHERE HER HEART RATE HAS DROPPED TO 39 BUT HAS COME BACK UP TO 40'S THIS HAS HAPPENED WHILE PATIENT WAS SLEEPING.
[2019-12-10 06:42] LABS: BASO % 0.7 % (0.0-1.0); EOS # 0.2 10*3/uL (0.0-0.4); HEMATOCRIT 39.4 % (37.0-47.0); LYMPH # 2.4 10*3/uL (1.3-4.4); LYMPH % 42.7 % (27.0-41.0); MEAN CELL VOLUME 92.5 fl (81.0-99.0); MEAN CORPUSCULAR HGB CONC 32.5 g/dl (33.0-37.0); MEAN PLATELET VOLUME 11.1 fl (9.6-12.3); MONO # 0.5 10*3/uL (0.1-1.0); MONO % 8.5 % (3.0-9.0); NEUT # 2.4 10*3/uL (2.3-7.9); NEUT % 43.9 % (47.0-73.0); PLATELET COUNT AUTOMATED 229 10*3/uL (130-400); RED BLOOD COUNT 4.26 10*6/uL (4.10-5.10); RED CELL DISTRI WIDTH 13.8 % (0-14.5); WHITE BLOOD COUNT 5.6 10*3/uL (4.8-10.8)
[2019-12-10 06:53] LABS: ALBUMIN 2.8 gm/dl (3.1-4.5); BUN 10 mg/dl (7-24); CHLORIDE 111 mmol/L (98-107); CHOLESTEROL 349 mg/dL (<200); CREATININE 0.74 mg/dL (0.55-1.02); POTASSIUM 4.1 mmol/L (3.5-5.1); SGOT/AST 17 IU/L (3-35); SGPT/ALT 24 U/L (12-78); SODIUM 141 mmol/L (136-145); TRIGLYCERIDES 624 mg/dl (<150)
--- NOTE | 2019-12-10 06:58 | NUR ---
DOCTOR OREN CALLED IN INFORMED HIM OF PATIENTS LOWEST HEART RATE 39 ORDERS FOR ECHO TODAY AND WILL SEE PATIENT LATER.
[2019-12-10 07:00] LABS: ALKALINE PHOSPHATASE 60 U/L (45-117); FREE T4 0.67 ng/dl (0.76-1.46); HDL CHOLESTEROL 38 mg/dl (40-60)
--- NOTE | 2019-12-10 08:05 | NUR ---
UP TO BSC WITH STEADY GAIT AND NO DIZZINESS
--- NOTE | 2019-12-10 09:00 | NUR ---
First Press Operator in to talk to patient. Patient states lives at home alone with her family checking in on her. There are 20 steps in the home. Physician: Andrés Salinas [facility]: [facility] Home health services: none Patient's level of ADLs: INDEPENDENT Patient has working utilities: yes DME: nebulizer Follow-up physician's appointment after d/c: will be made by the hospitalist nurse director upon discharge Does patient want to access PORTAL?: no Discharge plan discussed with patient. She lives at home alone with her family checking in on her. She states she is independent in her ADLs and ambulation. Discussed home health care services and she declines. CM will continue to follow for any discharge planning needs. When medically stable she will be discharged to home. She states she will have a ride upon discharge, she will have to call around. WESLEY SHANKS
--- NOTE | 2019-12-10 10:21 | NUR ---
DR LOTT HERE TO SEE PT
--- NOTE | 2019-12-10 16:45 | NUR ---
RETURNED FROM OPACER SITE RSC-GLUED, EDGES INTACT, NO DRAINAGE
--- NOTE | 2019-12-10 17:25 | NUR ---
MORPHINE FOR 10/10 RIGHT SHOULDER PAIN
--- NOTE | 2019-12-10 19:44 | NUR ---
PATIENT HAVING LEFT SHOULDER DISCOMFORT FROM PACEMAKER PLACEMENT PATIENT GIVEN NORCO AND XANAX FOR ANXIETY. PATIENTS LEFT SHOULDER INCISION DRY AND CLOSED AT THIS TIME WITH NO DRAINAGE.
[2019-12-11] VITALS: BP 90/62
--- NOTE | 2019-12-11 01:33 | NUR ---
PATIENTS BP WAS READING LOW ON MACHINE MANUAL WAS TAKEN 90/60. CALLED RESIDENT PAPER INSPECTOR DUE TO PATIENT STATING SHE WAS FEELING DIZZY AT THIS TIME. ORDERS FOR FLUIDS WERE RECIEVED.
[2019-12-11 04:00] VITALS: BP 100/46
--- NOTE | 2019-12-11 05:00 | NUR ---
PATIENT BP HAS IMPROVED SINCE IV FLUIDS HAVE BEGUN. PATIENTS CURRENT BP IS 111/55. PATIENT DOES STATE THAT SHE FEELS BETTER.
[2019-12-11 06:09] LABS: BASO % 0.5 % (0.0-1.0); EOS # 0.2 10*3/uL (0.0-0.4); EOS % 2.5 % (1.0-4.0); HEMATOCRIT 37.7 % (37.0-47.0); LYMPH # 1.9 10*3/uL (1.3-4.4); LYMPH % 24.3 % (27.0-41.0); MEAN CELL VOLUME 91.7 fl (81.0-99.0); MEAN CORPUSCULAR HGB 29.7 pg (27.0-31.0); MEAN CORPUSCULAR HGB CONC 32.4 g/dl (33.0-37.0); MEAN PLATELET VOLUME 10.9 fl (9.6-12.3); MONO # 0.7 10*3/uL (0.1-1.0); MONO % 9.2 % (3.0-9.0); NEUT # 4.8 10*3/uL (2.3-7.9); NEUT % 63.4 % (47.0-73.0); PLATELET COUNT AUTOMATED 210 10*3/uL (130-400); RED BLOOD COUNT 4.11 10*6/uL (4.10-5.10); RED CELL DISTRI WIDTH 13.8 % (0-14.5); WHITE BLOOD COUNT 7.6 10*3/uL (4.8-10.8)
[2019-12-11 06:22] LABS: BUN 14 mg/dl (7-24); CHLORIDE 108 mmol/L (98-107); CREATININE 0.83 mg/dL (0.55-1.02); POTASSIUM 3.6 mmol/L (3.5-5.1); SODIUM 139 mmol/L (136-145)
[2019-12-11 08:00] VITALS: BP 104/53
[2019-12-11 08:49] VITALS: BP 91/73
--- NOTE | 2019-12-11 08:52 | NUR ---
DR TEAGUE NOTIFIED THAT IMDUR AND CATAPRESS WERE HELD THIS AM DUE TO HYPOTENSTION SBP 90'S. PT ASYMPTOMATIC AT THIS TIME WITH HYPOTENSION.
[2019-12-11 09:15] VITALS: BP 98/40
--- NOTE | 2019-12-11 11:41 | NUR ---
PT MEDICATED WITH NORCO 1 TAB AT HER REQUEST FOR PACEMAKER INSERTION SITE SURGICAL PAIN.
[2019-12-11 12:00] VITALS: BP 108/48
--- NOTE | 2019-12-11 12:30 | NUR ---
PT STATE NORCO WAS EFFECTIVE IN EASING HER SURGICAL SITE PAIN.
[2019-12-11] MEDS ORDERED: NORCO 5-325 TA1 EACH PO (12:38)
[2019-12-11] MEDS ORDERED: CEFUROXIME AXE250 MG PO (12:38)
--- NOTE | 2019-12-11 13:04 | NUR ---
PT WAS VERY ANXIOUS TO GO AND DID NOT WANT TO WAIT AROUND FOR WOUND PHOTOS OF HER SCABS.
--- NOTE | 2019-12-11 13:04 | NUR ---
Discharge instructions reviewed with patient/family. Patient receptive and verbalizes understanding. Follow-up care arranged. Written instructions given to patient/family. STELLA GRIMES
--- NOTE | 2019-12-11 13:05 | NUR ---
PT DISCHARGED AT THIS TIME VIA WHEELCHAIR WITH FRIEND.
== END 2019-12-11 13:49 | disposition home or self-care (01) | DRG 244 ==
LOC: ED 15:17 → EDHOLD 16:36 → ICCU 16:36
PROVIDERS: Emergency Medicine; Internal Medicine; ADMIT Internal Medicine; ATTEND Internal Medicine
PROC: 02HK3JZ Insertion of Pacemaker Lead into Right Ventricle, Percutaneous Approach (ICD-10-PCS; principal; 2019-12-10)
PROC: 02H63JZ Insertion of Pacemaker Lead into Right Atrium, Percutaneous Approach (ICD-10-PCS; principal; 2019-12-10)
PROC: 0JH606Z Insertion of Pacemaker, Dual Chamber into Chest Subcutaneous Tissue and Fascia, Open Approach (ICD-10-PCS; principal; 2019-12-10)
DX: R00.1 Bradycardia, unspecified (principal); M94.0 Chondrocostal junction syndrome [Tietze]; F41.9 Anxiety disorder, unspecified; M81.0 Age-related osteoporosis without current pathological fracture; G40.909 Epilepsy, unspecified, not intractable, without status epilepticus; E78.2 Mixed hyperlipidemia; F31.9 Bipolar disorder, unspecified; J44.9 Chronic obstructive pulmonary disease, unspecified; I25.10 Atherosclerotic heart disease of native coronary artery without angina pectoris; R73.9 Hyperglycemia, unspecified; E83.41 Hypermagnesemia; I25.2 Old myocardial infarction; Z90.710 Acquired absence of both cervix and uterus; Z90.49 Acquired absence of other specified parts of digestive tract; Z82.49 Family history of ischemic heart disease and other diseases of the circulatory system; Z83.3 Family history of diabetes mellitus; Z88.7 Allergy status to serum and vaccine; Z88.1 Allergy status to other antibiotic agents; Z91.041 Radiographic dye allergy status; Z91.012 Allergy to eggs

== ENCOUNTER 2019-12-21 10:04 | Emergency (ER) | payer OTHER ==
[~2019-12-21] VITALS: Ht 160 cm; Wt 70.8 kg
[~2019-12-21 10:04] MED LIST changes: +CEFUROXIME AXE250 MG PO
[2019-12-21 11:15] LABS: BASO # 0.1 10*3/uL (0.0-0.1); BASO % 0.8 % (0.0-1.0); EOS # 0.1 10*3/uL (0.0-0.4); EOS % 1.6 % (1.0-4.0); HEMATOCRIT 40.1 % (37.0-47.0); LYMPH % 31.9 % (27.0-41.0); MEAN CELL VOLUME 90.9 fl (81.0-99.0); MEAN CORPUSCULAR HGB 29.7 pg (27.0-31.0); MEAN CORPUSCULAR HGB CONC 32.7 g/dl (33.0-37.0); MEAN PLATELET VOLUME 10.5 fl (9.6-12.3); MONO # 0.5 10*3/uL (0.1-1.0); MONO % 8.4 % (3.0-9.0); NEUT # 3.6 10*3/uL (2.3-7.9); PLATELET COUNT AUTOMATED 225 10*3/uL (130-400); RED BLOOD COUNT 4.41 10*6/uL (4.10-5.10); RED CELL DISTRI WIDTH 13.9 % (0-14.5); WHITE BLOOD COUNT 6.3 10*3/uL (4.8-10.8)
[2019-12-21 11:18] VITALS: BP 117/56
[2019-12-21 11:31] LABS: ALBUMIN 3.7 gm/dl (3.1-4.5); ALKALINE PHOSPHATASE 67 U/L (45-117); BUN 16 mg/dl (7-24); CHLORIDE 109 mmol/L (98-107); CREATININE 0.68 mg/dL (0.55-1.02); POTASSIUM 3.4 mmol/L (3.5-5.1); SGOT/AST 22 IU/L (3-35); SGPT/ALT 25 U/L (12-78); SODIUM 140 mmol/L (136-145); TOTAL PROTEIN 7.3 gm/dL (6.4-8.2)
[2019-12-21 11:32] LABS: TROPONIN I 0.037 ng/ml (<0.045)
[2019-12-21] MEDS ORDERED: NORCO 5-325 TA1 EACH PO (12:11)
[2019-12-21] MEDS ORDERED: NAPROXEN250 MG PO (12:11)
== END 2019-12-21 12:19 | disposition home or self-care (01) ==
LOC: ED 10:04
PROVIDERS: Nurse Practitioner Family
DX: G89.18 Other acute postprocedural pain (principal); J44.9 Chronic obstructive pulmonary disease, unspecified; R56.9 Unspecified convulsions; F41.9 Anxiety disorder, unspecified; F31.9 Bipolar disorder, unspecified; Z88.8 Allergy status to other drugs, medicaments and biological substances; Z90.49 Acquired absence of other specified parts of digestive tract; Z90.710 Acquired absence of both cervix and uterus

== ENCOUNTER 2020-01-20 09:33 | Observation (INO) | payer OTHER ==
[~2020-01-20] VITALS: Ht 160 cm; Wt 71.3 kg
[~2020-01-20 09:33] MED LIST changes: +NAPROXEN250 MG PO
[2020-01-20 09:46] VITALS: BP 140/75
[2020-01-20 10:21] LABS: BASO # 0.1 10*3/uL (0.0-0.1); BASO % 0.9 % (0.0-1.0); EOS # 0.1 10*3/uL (0.0-0.4); EOS % 2.4 % (1.0-4.0); HEMATOCRIT 42.8 % (37.0-47.0); LYMPH # 1.8 10*3/uL (1.3-4.4); LYMPH % 30.8 % (27.0-41.0); MEAN CELL VOLUME 91.8 fl (81.0-99.0); MEAN CORPUSCULAR HGB 29.6 pg (27.0-31.0); MEAN CORPUSCULAR HGB CONC 32.2 g/dl (33.0-37.0); MEAN PLATELET VOLUME 10.2 fl (9.6-12.3); MONO # 0.5 10*3/uL (0.1-1.0); MONO % 7.7 % (3.0-9.0); NEUT # 3.4 10*3/uL (2.3-7.9); PLATELET COUNT AUTOMATED 193 10*3/uL (130-400); RED BLOOD COUNT 4.66 10*6/uL (4.10-5.10); RED CELL DISTRI WIDTH 13.5 % (0-14.5); WHITE BLOOD COUNT 5.8 10*3/uL (4.8-10.8)
[2020-01-20 10:31] LABS: ACT PARTIAL THROMBO TIME 29.3 SECONDS (20.0-32.1)
[2020-01-20 10:38] LABS: ALBUMIN 3.4 gm/dl (3.1-4.5); ALKALINE PHOSPHATASE 61 U/L (45-117); BUN 11 mg/dl (7-24); CHLORIDE 111 mmol/L (98-107); POTASSIUM 3.7 mmol/L (3.5-5.1); SGOT/AST 9 IU/L (3-35); SGPT/ALT 17 U/L (12-78); SODIUM 140 mmol/L (136-145); TOTAL PROTEIN 6.7 gm/dL (6.4-8.2)
[2020-01-20 10:40] LABS: LIPASE 59 U/L (73-393)
[2020-01-20 10:46] LABS: TROPONIN I 0.046 ng/ml (<0.045)
[2020-01-20 11:14] VITALS: BP 111/54
--- NOTE | 2020-01-20 11:15 | NUR ---
REQUESTING PAIN MEDICATION FOR CHEST PAIN. IS AWARE.
--- NOTE | 2020-01-20 12:50 | NUR ---
THE PATIENT WAS GIVEN A CUP OF COFFEE. SHE IS REQUESTING "ONE OF MY NERVE PILLS." HER RN WAS NOTIFIED
--- NOTE | 2020-01-20 13:44 | NUR ---
MEDICATED WITH ATIVAN ORDERED FOR C/O ANXIETY. TEARFUL ON EXAM. UPSET ABOUT HER SISTERS RECENT .
[2020-01-20] MEDS ORDERED: REXULTI4 MG PO (14:23)
[2020-01-20 14:38] VITALS: BP 146/82
[2020-01-20 14:40] VITALS: BP 146/82
--- NOTE | 2020-01-20 14:47 | NUR ---
PATIENT COMPLAINING OF 10/10 CHEST PAIN RADIATING TO BACK AND LEFT SHOULDER. NOTIFIED RESIDENT. HE STATED HE WAS PUTTING IN AN ORDER FOR 2MG IV MORPHINE NOW. WILL ADMINISTER.
--- NOTE | 2020-01-20 14:56 | NUR ---
MORPHINE GIVEN PER PATIENT REQUEST/DOCTOR ORDERS FOR CHEST PAIN RATED 10/10. WILL ASSESS EFFECTIVENESS.
--- NOTE | 2020-01-20 15:17 | NUR ---
A 64, admitted to , under the services of LEE Cruz DO with a diagnosis of CHEST PAIN RULE OUT ID. Chief complaint is CHEST PAIN. Patient arrived via OTHER from ER. Monitor applied. Initial assessment completed. Vital signs taken and recorded. LEE CRUZ DO notified of admission to the unit. Orders received. See assessment for past medical history, medications and allergies. Patient and/or family oriented to unit. [address] visitation policy reviewed. Clothing/patient valuable form completed. CORY ISAACS
--- NOTE | 2020-01-20 15:18 | NUR ---
MED REC UP TO DATE. NOTIFIED RESIDENT.
--- NOTE | 2020-01-20 15:18 | NUR ---
CALLED DR LOTT'S CELL TO NOTIFY HIM OF CONSULT. NO ANSWER. WILL TRY AGAIN.
--- NOTE | 2020-01-20 15:36 | NUR ---
PATIENT STATED MORPHINE WAS EFFECTIVE. WILL CONTINUE TO MONITOR.
--- NOTE | 2020-01-20 15:36 | NUR ---
NOTIFIED DR LOTT OF CONSULT. HE STATED HE WOULD BE IN TO SEE THE PATIENT TOMORROW.
[2020-01-20 16:00] VITALS: BP 121/53
--- NOTE | 2020-01-20 17:21 | NUR ---
PT. INSTRUCTED ON I/S AND THE BENEFITS OF EXERCISE. PT ACHIEVED A VOLUME 1000,
--- NOTE | 2020-01-20 20:10 | NUR ---
PATIENT LEAVING AMA. DISCUSSED WITH DR REYNOSO; DR COLE TO SPEAK WITH PATIENT. PATIENT SIGNED FORM AND LEFT FLOOR ON FOOT WITH ALL BELONGINGS.
== END 2020-01-20 20:10 | disposition left against medical advice (07) ==
LOC: ED 09:33 → EDHOLD 13:32 → 4E 14:04
PROVIDERS: Emergency Medicine; ADMIT Internal Medicine; ATTEND Internal Medicine
DX: R07.89 Other chest pain (principal); R06.02 Shortness of breath; R79.89 Other specified abnormal findings of blood chemistry; J44.9 Chronic obstructive pulmonary disease, unspecified; F41.9 Anxiety disorder, unspecified; F32.9 Major depressive disorder, single episode, unspecified; E87.8 Other disorders of electrolyte and fluid balance, not elsewhere classified; M81.0 Age-related osteoporosis without current pathological fracture; I25.10 Atherosclerotic heart disease of native coronary artery without angina pectoris; I25.2 Old myocardial infarction; G40.909 Epilepsy, unspecified, not intractable, without status epilepticus

== ENCOUNTER 2020-01-25 12:28 | Emergency (ER) | payer OTHER ==
[~2020-01-25] VITALS: Wt 71.7 kg
[2020-01-25 12:34] VITALS: BP 150/57
[2020-01-25] MEDS ORDERED: AVPAK AZITHROM250 MG PO (13:32)
[2020-01-25] MEDS ORDERED: CLARITIN10 MG PO (13:32)
[2020-01-25] MEDS ORDERED: CORTISPORIN SUS10 ML OT (13:32)
== END 2020-01-25 13:39 | disposition home or self-care (01) ==
LOC: ED 12:28
DX: J01.90 Acute sinusitis, unspecified (principal); H60.91 Unspecified otitis externa, right ear; J44.9 Chronic obstructive pulmonary disease, unspecified; F31.9 Bipolar disorder, unspecified; F17.200 Nicotine dependence, unspecified, uncomplicated; Z88.8 Allergy status to other drugs, medicaments and biological substances; Z91.041 Radiographic dye allergy status

== ENCOUNTER 2020-02-06 06:57 | Observation (INO) | payer OTHER ==
[~2020-02-06] VITALS: Ht 160 cm; Wt 69.7 kg
[2020-02-06] VITALS (9 sets, daily range): BP systolic 110–156; BP diastolic 47–82
[~2020-02-06 06:57] MED LIST changes: +CORTISPORIN SUS10 ML OT
[2020-02-06 07:25] LABS: BASO % 0.5 % (0.0-1.0); EOS # 0.1 10*3/uL (0.0-0.4); EOS % 1.1 % (1.0-4.0); HEMATOCRIT 41.7 % (37.0-47.0); LYMPH # 1.3 10*3/uL (1.3-4.4); LYMPH % 15.4 % (27.0-41.0); MEAN CELL VOLUME 90.3 fl (81.0-99.0); MEAN CORPUSCULAR HGB 29.7 pg (27.0-31.0); MEAN CORPUSCULAR HGB CONC 32.9 g/dl (33.0-37.0); MEAN PLATELET VOLUME 10.1 fl (9.6-12.3); MONO # 0.8 10*3/uL (0.1-1.0); MONO % 9.5 % (3.0-9.0); NEUT # 5.9 10*3/uL (2.3-7.9); NEUT % 73.3 % (47.0-73.0); PLATELET COUNT AUTOMATED 228 10*3/uL (130-400); RED BLOOD COUNT 4.62 10*6/uL (4.10-5.10); RED CELL DISTRI WIDTH 14.1 % (0-14.5); WHITE BLOOD COUNT 8.1 10*3/uL (4.8-10.8)
[2020-02-06 07:36] LABS: ACT PARTIAL THROMBO TIME 28.5 SECONDS (20.0-32.1)
[2020-02-06 07:45] LABS: ALBUMIN 3.5 gm/dl (3.1-4.5); ALKALINE PHOSPHATASE 71 U/L (45-117); BUN 11 mg/dl (7-24); CHLORIDE 102 mmol/L (98-107); POTASSIUM 3.8 mmol/L (3.5-5.1); SGOT/AST 34 IU/L (3-35); SGPT/ALT 43 U/L (12-78); SODIUM 138 mmol/L (136-145); TOTAL PROTEIN 7.1 gm/dL (6.4-8.2)
[2020-02-06 07:54] LABS: TROPONIN I 0.063 ng/ml (<0.045)
--- NOTE | 2020-02-06 08:10 | NUR ---
PT AMBULATING TO THE BATHROOM FOR URINE SAMPLE, GAIT STEADY AT THIS TIME. PT REQUESTING XANAX 1MG, STATES SHE FORGOT TO TAKE HER DOSE THIS AM.
--- NOTE | 2020-02-06 09:02 | NUR ---
NOTIFIED DR QUIJANO OF THE CONSULT ORDERS RECEIVED. ECHO TOMORROW. IF [facility] GOES UP NOTIFY HIM AND HE WILL TRANSFER HER TO [facility].
[2020-02-06] MEDS ORDERED: CELEXA40 MG PO (10:09)
--- NOTE | 2020-02-06 10:12 | NUR ---
PT STATES MORPHINE EFFECTIVE FOR PAIN.
--- NOTE | 2020-02-06 10:37 | NUR ---
DR ARTHUR AWARE OF PT'S CRITICAL TROPONIN LEVEL 0.052.
--- NOTE | 2020-02-06 22:31 | NUR ---
PT MEDICATED WITH PRN XANAX FOR C/O ANXIETY. WILL MONITOR FOR EFFECTIVENESS.
--- NOTE | 2020-02-06 23:15 | NUR ---
PT ASLEEP IN BED AT THIS TIME. PRN XANAX EFFECTIVE.
--- NOTE | 2020-02-06 23:25 | NUR ---
PT MEDICATED WITH PRN MORPHINE FOR C/O CHEST AND BILAT SIDE PAIN RATED A 10/10. WILL MONITOR FOR EFFECTIVENESS.
[2020-02-07] VITALS: BP 134/63
--- NOTE | 2020-02-07 | NUR ---
PT ASLEEP IN BED AT THIS TIME. PRN MORPHINE EFFECTIVE.
--- NOTE | 2020-02-07 02:27 | NUR ---
PT MEDICATED WITH PRN NORCO FOR C/O BILATERAL SIDE PAIN RATED A 10/10. WILL MONITOR FOR EFFECTIVENESS.
--- NOTE | 2020-02-07 03:00 | NUR ---
PT RESTING IN BED AT THIS TIME. STATES THAT PRN NORCO IS EFFECTIVE. WILL CONTINUE TO MONITOR.
[2020-02-07 06:43] LABS: BASO % 0.7 % (0.0-1.0); EOS # 0.2 10*3/uL (0.0-0.4); EOS % 2.8 % (1.0-4.0); HEMATOCRIT 38.2 % (37.0-47.0); LYMPH # 1.8 10*3/uL (1.3-4.4); LYMPH % 30.2 % (27.0-41.0); MEAN CELL VOLUME 92.3 fl (81.0-99.0); MEAN CORPUSCULAR HGB 29.5 pg (27.0-31.0); MEAN CORPUSCULAR HGB CONC 31.9 g/dl (33.0-37.0); MEAN PLATELET VOLUME 10.1 fl (9.6-12.3); MONO # 0.7 10*3/uL (0.1-1.0); MONO % 12.1 % (3.0-9.0); NEUT # 3.3 10*3/uL (2.3-7.9); PLATELET COUNT AUTOMATED 218 10*3/uL (130-400); RED BLOOD COUNT 4.14 10*6/uL (4.10-5.10); RED CELL DISTRI WIDTH 14.3 % (0-14.5); WHITE BLOOD COUNT 6.1 10*3/uL (4.8-10.8)
--- NOTE | 2020-02-07 07:20 | NUR ---
PT REQUESTING TO HAVE IV REMOVED AND TO SIGN OUT AMA AT THIS TIME. SHE STATES THAT IF WE CANNOT CONTROL HER PAIN SHE WANTS TO GO. PT EDUCATED ON AVAILABLE PRN MEDICATIONS. WILL MEDICATE PER ORDER.
--- NOTE | 2020-02-07 07:28 | NUR ---
PT MEDICATED WITH PRN MORPHINE FOR C/O CHEST PAIN RATED A 10/10. WILL MONITOR FOR EFFECTIVENESS.
[2020-02-07 08:00] VITALS: BP 140/67
[2020-02-07 08:04] LABS: ALKALINE PHOSPHATASE 61 U/L (45-117); BUN 15 mg/dl (7-24); CHLORIDE 110 mmol/L (98-107); CREATININE 0.67 mg/dL (0.55-1.02); POTASSIUM 3.9 mmol/L (3.5-5.1); SGOT/AST 23 IU/L (3-35); SGPT/ALT 40 U/L (12-78); SODIUM 141 mmol/L (136-145); TOTAL PROTEIN 6.2 gm/dL (6.4-8.2)
[2020-02-07 08:05] LABS: PHENYTOIN (DILANTIN) 1.3 ug/ml (10-20)
--- NOTE | 2020-02-07 08:38 | NUR ---
MEDICATED WITH PRN PO XANAX FOR ANXIETY.
--- NOTE | 2020-02-07 08:47 | NUR ---
PATIENT HAVING ECHOCARDIOGRAM AT THIS TIME AT BEDSIDE.
--- NOTE | 2020-02-07 09:00 | NUR ---
Ems Instructor in to talk to patient. Patient states lives at home with alone. There are 20 steps in the home. Physician: armando tolentino [facility]acy: [facility] Home health services: none Patient's level of ADLs: INDEPENDENT Patient has working utilities: all working DME: nebulizer Follow-up physician's appointment after d/c: will be made by hospitalist nurse director upon discharge Does patient want to access PORTAL?: no Discharge plan discussed with patient, she states she lives at home, is independent in adls and ambulation, she states she will return home when discharged and denies any home needs. CARLOS BARRIGA
--- NOTE | 2020-02-07 09:30 | NUR ---
PRN PO XANAX EFFECTIVE, PER PATIENT.
--- NOTE | 2020-02-07 11:27 | NUR ---
DR. LOTT WAS IN TO SEE PATIENT RE: PLAN OF CARE.
[2020-02-07 12:00] VITALS: BP 115/63
--- NOTE | 2020-02-07 13:08 | NUR ---
MEDICATED WITH PRN IV MORPHINE FOR PAIN TO RIGHT EAR RADIATING TO JAW, NECK AND CHEST.
[2020-02-07] MEDS ORDERED: VITAMIN D350 MCG PO (13:21)
--- NOTE | 2020-02-07 13:45 | NUR ---
PRN IV MORPHINE EFFECTIVE, PER PATIENT.
--- NOTE | 2020-02-07 14:24 | NUR ---
Discharge instructions reviewed with patient/family. Patient receptive and verbalizes understanding. Follow-up care arranged. Written instructions given to patient. LAVERN PERKINS
--- NOTE | 2020-02-07 14:25 | NUR ---
PATIENT DISCHARGED TO [facility], AMBULATORY, FOR TRANSPORT HOME BY PRIVATE VEHICLE WITH HER FRIEND.
== END 2020-02-07 14:25 | disposition home or self-care (01) ==
LOC: ED 06:57 → EDHOLD 08:21 → 4E 19:13
PROVIDERS: Emergency Medicine Emergency Medical Services; Student in an Organized Health Care Education/Training Program; ADMIT Emergency Medicine; ATTEND Emergency Medicine
DX: R07.89 Other chest pain (principal); R77.8 Other specified abnormalities of plasma proteins; R53.1 Weakness; D72.810 Lymphocytopenia; E83.41 Hypermagnesemia; M81.0 Age-related osteoporosis without current pathological fracture; I25.10 Atherosclerotic heart disease of native coronary artery without angina pectoris; F31.9 Bipolar disorder, unspecified; J44.9 Chronic obstructive pulmonary disease, unspecified; E66.3 Overweight

== ENCOUNTER 2020-03-08 07:34 | Emergency (ER) | payer OTHER ==
[~2020-03-08] VITALS: Ht 160 cm; Wt 70.8 kg
[~2020-03-08 07:34] MED LIST changes: +CELEXA40 MG PO; +VITAMIN D350 MCG PO
[2020-03-08 07:39] VITALS: BP 136/77
[2020-03-08 08:10] LABS: BASO # 0.1 10*3/uL (0.0-0.1); BASO % 0.7 % (0.0-1.0); EOS # 0.1 10*3/uL (0.0-0.4); EOS % 0.9 % (1.0-4.0); HEMATOCRIT 42.1 % (37.0-47.0); LYMPH # 1.4 10*3/uL (1.3-4.4); LYMPH % 17.6 % (27.0-41.0); MEAN CELL VOLUME 89.4 fl (81.0-99.0); MEAN CORPUSCULAR HGB 29.5 pg (27.0-31.0); MEAN PLATELET VOLUME 10.1 fl (9.6-12.3); MONO # 0.4 10*3/uL (0.1-1.0); MONO % 5.2 % (3.0-9.0); NEUT # 5.8 10*3/uL (2.3-7.9); NEUT % 75.5 % (47.0-73.0); PLATELET COUNT AUTOMATED 225 10*3/uL (130-400); RED BLOOD COUNT 4.71 10*6/uL (4.10-5.10); RED CELL DISTRI WIDTH 13.7 % (0-14.5); WHITE BLOOD COUNT 7.7 10*3/uL (4.8-10.8)
[2020-03-08 08:25] LABS: ALBUMIN 3.6 gm/dl (3.1-4.5); ALKALINE PHOSPHATASE 79 U/L (45-117); BUN 7 mg/dl (7-24); CHLORIDE 108 mmol/L (98-107); CREATININE 0.69 mg/dL (0.55-1.02); POTASSIUM 3.2 mmol/L (3.5-5.1); SGOT/AST 15 IU/L (3-35); SGPT/ALT 33 U/L (12-78); SODIUM 141 mmol/L (136-145); TOTAL PROTEIN 6.8 gm/dL (6.4-8.2)
[2020-03-08 08:26] LABS: ACT PARTIAL THROMBO TIME 27.8 SECONDS (20.0-32.1)
[2020-03-08 08:48] LABS: BILIRUBIN Negative (Negative); BLOOD Negative (Negative); CLARITY Clear (Clear); COLOR Yellow (Yellow); GLUCOSE Negative (Negative); KETONE Negative (Negative); LEUKO ESTERASE Negative (Negative); NITRITE Negative (Negative); PH 6.5 (4.5-8.0); UROBILINOGEN 0.2 E.U./dl (0.0-1.0)
[2020-03-08 08:56] LABS: URINE AMPHETAMINES < 1000 (1000ng/ml); URINE BARBITURATES < 200 (200ng/ml); URINE BENZODIAZEPINES > 200 (200ng/ml); URINE CANNABINOIDS (THC) < 50 (50ng/ml); URINE COCAINE < 300 (300ng/ml); URINE METHADONE < 300 (300ng/ml); URINE OPIATES < 300 (300ng/ml)
[2020-03-08 08:59] LABS: URINE PHENCYCLIDINE < 25 (25ng/ml)
[2020-03-08 09:22] LABS: BACTERIA TRACE
[2020-03-08 09:23] LABS: MUCOUS 3+
[2020-03-08] MEDS ORDERED: Motrin,Rufen800 MG PO (09:39)
== END 2020-03-08 09:41 | disposition home or self-care (01) ==
LOC: ED 07:34
PROVIDERS: Emergency Medicine
DX: R10.9 Unspecified abdominal pain (principal); J44.9 Chronic obstructive pulmonary disease, unspecified; F32.9 Major depressive disorder, single episode, unspecified; R56.9 Unspecified convulsions; F41.9 Anxiety disorder, unspecified; M81.0 Age-related osteoporosis without current pathological fracture; Z91.041 Radiographic dye allergy status; Z91.012 Allergy to eggs; Z88.8 Allergy status to other drugs, medicaments and biological substances; Z79.899 Other long term (current) drug therapy

== ENCOUNTER 2020-03-16 10:54 | Observation (INO) | payer OTHER ==
[~2020-03-16] VITALS: Ht 160 cm; Wt 74.8 kg
[2020-03-16 11:01] VITALS: BP 151/89
[2020-03-16 11:06] LABS: BASO # 0.1 10*3/uL (0.0-0.1); BASO % 0.7 % (0.0-1.0); EOS # 0.1 10*3/uL (0.0-0.4); EOS % 1.1 % (1.0-4.0); HEMATOCRIT 42.6 % (37.0-47.0); LYMPH # 1.9 10*3/uL (1.3-4.4); LYMPH % 25.4 % (27.0-41.0); MEAN CELL VOLUME 89.5 fl (81.0-99.0); MEAN CORPUSCULAR HGB 29.4 pg (27.0-31.0); MEAN CORPUSCULAR HGB CONC 32.9 g/dl (33.0-37.0); MONO # 0.6 10*3/uL (0.1-1.0); MONO % 8.2 % (3.0-9.0); NEUT # 4.9 10*3/uL (2.3-7.9); NEUT % 64.3 % (47.0-73.0); PLATELET COUNT AUTOMATED 247 10*3/uL (130-400); RED BLOOD COUNT 4.76 10*6/uL (4.10-5.10); RED CELL DISTRI WIDTH 13.7 % (0-14.5); WHITE BLOOD COUNT 7.6 10*3/uL (4.8-10.8)
[2020-03-16 11:19] LABS: ACT PARTIAL THROMBO TIME 27.2 SECONDS (20.0-32.1)
[2020-03-16 11:24] LABS: ALBUMIN 3.6 gm/dl (3.1-4.5); ALKALINE PHOSPHATASE 72 U/L (45-117); BUN 14 mg/dl (7-24); CHLORIDE 111 mmol/L (98-107); CREATININE 0.71 mg/dL (0.55-1.02); POTASSIUM 3.5 mmol/L (3.5-5.1); SGOT/AST 15 IU/L (3-35); SGPT/ALT 20 U/L (12-78); SODIUM 144 mmol/L (136-145); TOTAL PROTEIN 7.2 gm/dL (6.4-8.2)
[2020-03-16 11:26] LABS: TROPONIN I 0.063 ng/ml (<0.045)
[2020-03-16 12:01] VITALS: BP 151/63
--- NOTE | 2020-03-16 13:13 | NUR ---
RESIDENT STATES THAT SINCE PT HAS A HX OF 3RD DEGREE BLOCK HE WANTS PACEMAKER TO BE INTERROGATED TODAY. I CALLED [employer] AT [phone] AND THEY STATED THAT THEY WILL CONTACT SOMEONE TO HAVE THIS DONE.
--- NOTE | 2020-03-16 13:22 | NUR ---
[employer] CALLED BACK AND STATED THEY DID NOT THINK THIS WAS AN EMERGENT ORDER AND DID NOT FEEL THE NEED TO COME TODAY. . DR MEAZ STATES IT IS AN EMERGENT ORDER AND WILL CALL [employer] HIMSELF TO GET THIS DONE.
--- NOTE | 2020-03-16 13:53 | NUR ---
PT GIVEN CARDIAC RUNNING LUNCH TRAY
[2020-03-16 13:59] LABS: BILIRUBIN Negative (Negative); BLOOD Negative (Negative); CLARITY Clear (Clear); COLOR Yellow (Yellow); GLUCOSE Negative (Negative); KETONE Negative (Negative); LEUKO ESTERASE Negative (Negative); NITRITE Negative (Negative); PH 5.5 (4.5-8.0); SPECIFIC GRAVITY <= 1.005 (1.001-1.030); UROBILINOGEN 0.2 E.U./dl (0.0-1.0)
[2020-03-16 14:14] LABS: BACTERIA TRACE; RBC 0-2 rbc/hpf (0-2)
[2020-03-16 14:16] VITALS: BP 143/87
[2020-03-16 15:59] VITALS: BP 135/62
--- NOTE | 2020-03-16 19:02 | NUR ---
PT STATES SHE WANTS TO LEAVE AMA "BECAUSE I DON'T LIKE THE FOOD HERE." PT ADVISED THAT IT WOULD BE IN HER BEST INTEREST TO STAY DUE TO HAVING HER PACEMAKER INTERROGATED
--- NOTE | 2020-03-16 20:43 | NUR ---
PT REQUESTING XANAX AND MINIPRESS FOR EVENING MEDS. THIS RN CONTACTED DR. LUZ TO REQUEST ORDER FOR MEDICATIONS AT THIS TIME. IV ALSO NOT FLUSHING AT THIS TIME. THIS RN TO ATTEMPT TO OBTAIN A NEW SITE. PT GIVEN PILLOW AT THIS TIME. DENIES ALL OTHER NEEDS. WILL CONTINUE TO MONITOR.
--- NOTE | 2020-03-16 23:10 | NUR ---
PT COMPLAINING OF PAIN THAT RATES 9/10 AT THIS TIME. PRN MORPHINE TO BE GIVEN AT THIS TIME. SAFETY PRECAUTIONS INTACT. CALL LIGHT WITH IN REACH. WILL CONTINUE TO MONITOR.
--- NOTE | 2020-03-17 00:30 | NUR ---
PT REPORTS THAT MEDICATION WAS EFFECTIVE EVIDENT BY PAIN RATING OF 3/10. PT STATES PAIN IS TOLERABLE. WILL CONTINUE TO MONITOR.
--- NOTE | 2020-03-17 04:45 | NUR ---
PT C/O PAIN THAT RATES 8-9/10. PT UP TO RESTROOM AT THIS TIME. MEDICATION GIVEN. SAFETY PRECAUTIONS INTACT. CALL LIGHT WITH IN REACH. WILL CONTINUE TO MONITOR.
[2020-03-17 05:01] VITALS: BP 108/46
[2020-03-17 05:32] LABS: ALKALINE PHOSPHATASE 61 U/L (45-117); BUN 21 mg/dl (7-24); CHLORIDE 112 mmol/L (98-107); CHOLESTEROL 222 mg/dL (<200); CREATININE 0.67 mg/dL (0.55-1.02); HDL CHOLESTEROL 48 mg/dl (40-60); LDL CHOLESTEROL 117 mg/dL (9-159); POTASSIUM 3.8 mmol/L (3.5-5.1); SGOT/AST 11 IU/L (3-35); SGPT/ALT 18 U/L (12-78); SODIUM 143 mmol/L (136-145); TOTAL PROTEIN 5.8 gm/dL (6.4-8.2); TRIGLYCERIDES 283 mg/dl (<150); VLDL CHOLESTEROL 57 mg/dL (6-40)
[2020-03-17 06:07] LABS: BASO % 0.6 % (0.0-1.0); EOS # 0.2 10*3/uL (0.0-0.4); EOS % 2.4 % (1.0-4.0); HEMATOCRIT 39.7 % (37.0-47.0); LYMPH # 2.4 10*3/uL (1.3-4.4); LYMPH % 38.6 % (27.0-41.0); MEAN CELL VOLUME 92.3 fl (81.0-99.0); MEAN CORPUSCULAR HGB 29.8 pg (27.0-31.0); MEAN CORPUSCULAR HGB CONC 32.2 g/dl (33.0-37.0); MEAN PLATELET VOLUME 10.3 fl (9.6-12.3); MONO # 0.5 10*3/uL (0.1-1.0); MONO % 8.6 % (3.0-9.0); NEUT # 3.1 10*3/uL (2.3-7.9); NEUT % 49.6 % (47.0-73.0); PLATELET COUNT AUTOMATED 226 10*3/uL (130-400); RED CELL DISTRI WIDTH 14.1 % (0-14.5); WHITE BLOOD COUNT 6.2 10*3/uL (4.8-10.8)
[2020-03-17 06:19] LABS: ACT PARTIAL THROMBO TIME 27.9 SECONDS (20.0-32.1)
[2020-03-17 07:09] LABS: VITAMIN D, 25-HYDROXY 21.5 ng/mL (30-100)
--- NOTE | 2020-03-17 08:35 | NUR ---
[employer] IS HERE FOR PACEMAKER CHECK
--- NOTE | 2020-03-17 09:46 | NUR ---
PT EATING AT THIS TIME NO DISTRESS NOTED CALL LIGHT WITHIN REACH RN WILL CONTINUE TO MONITOR
--- NOTE | 2020-03-17 12:44 | NUR ---
PT REQUESTING TO HAVE IV REMOVED SO SHE CAN LEAVE, DR. GUTIERRES AWARE
== END 2020-03-17 13:44 | disposition left against medical advice (07) ==
LOC: ED 10:54 → EDHOLD 11:43
PROVIDERS: Emergency Medicine; Nurse Practitioner Family; ADMIT Family Medicine; ATTEND Family Medicine
DX: R07.89 Other chest pain (principal); R77.8 Other specified abnormalities of plasma proteins; R10.9 Unspecified abdominal pain; E87.8 Other disorders of electrolyte and fluid balance, not elsewhere classified; E83.41 Hypermagnesemia; M81.0 Age-related osteoporosis without current pathological fracture; I25.10 Atherosclerotic heart disease of native coronary artery without angina pectoris; I25.2 Old myocardial infarction; F31.9 Bipolar disorder, unspecified; J44.9 Chronic obstructive pulmonary disease, unspecified; F41.9 Anxiety disorder, unspecified; E66.3 Overweight; Z68.29 Body mass index [BMI] 29.0-29.9, adult; G40.909 Epilepsy, unspecified, not intractable, without status epilepticus; F17.210 Nicotine dependence, cigarettes, uncomplicated

== ENCOUNTER 2020-03-30 01:34 | Emergency (ER) | payer OTHER ==
[~2020-03-30] VITALS: Ht 177.8 cm; Wt 80.7 kg
[2020-03-30 01:40] VITALS: BP 134/71
[2020-03-30 02:07] LABS: BASO # 0.1 10*3/uL (0.0-0.1); BASO % 0.7 % (0.0-1.0); EOS # 0.2 10*3/uL (0.0-0.4); EOS % 2.8 % (1.0-4.0); HEMATOCRIT 42.7 % (37.0-47.0); LYMPH # 2.2 10*3/uL (1.3-4.4); LYMPH % 33.2 % (27.0-41.0); MEAN CELL VOLUME 90.3 fl (81.0-99.0); MEAN CORPUSCULAR HGB 29.4 pg (27.0-31.0); MEAN CORPUSCULAR HGB CONC 32.6 g/dl (33.0-37.0); MEAN PLATELET VOLUME 10.7 fl (9.6-12.3); MONO # 0.6 10*3/uL (0.1-1.0); MONO % 8.8 % (3.0-9.0); NEUT # 3.6 10*3/uL (2.3-7.9); NEUT % 54.2 % (47.0-73.0); PLATELET COUNT AUTOMATED 225 10*3/uL (130-400); RED BLOOD COUNT 4.73 10*6/uL (4.10-5.10); RED CELL DISTRI WIDTH 13.5 % (0-14.5); WHITE BLOOD COUNT 6.7 10*3/uL (4.8-10.8)
[2020-03-30 02:17] LABS: ACT PARTIAL THROMBO TIME 25.2 SECONDS (20.0-32.1)
[2020-03-30 02:25] LABS: ALBUMIN 3.4 gm/dl (3.1-4.5); ALKALINE PHOSPHATASE 74 U/L (45-117); BUN 12 mg/dl (7-24); CHLORIDE 109 mmol/L (98-107); POTASSIUM 3.2 mmol/L (3.5-5.1); SGOT/AST 5 IU/L (3-35); SGPT/ALT 20 U/L (12-78); SODIUM 141 mmol/L (136-145); TOTAL PROTEIN 6.7 gm/dL (6.4-8.2)
[2020-03-30 02:27] LABS: TROPONIN I 0.066 ng/ml (<0.045)
== END 2020-03-30 03:30 | disposition home or self-care (01) ==
LOC: ED 01:34
PROVIDERS: Internal Medicine
DX: R07.89 Other chest pain (principal); E87.6 Hypokalemia; Z91.012 Allergy to eggs; Z88.5 Allergy status to narcotic agent; Z88.8 Allergy status to other drugs, medicaments and biological substances; Z91.041 Radiographic dye allergy status; Z79.899 Other long term (current) drug therapy

== ENCOUNTER 2020-05-17 13:54 | Emergency (ER) | payer OTHER ==
[~2020-05-17] VITALS: Ht 160 cm; Wt 71.7 kg
[2020-05-17 13:59] VITALS: BP 143/86
[2020-05-17 14:27] LABS: BASO % 0.6 % (0.0-1.0); EOS # 0.1 10*3/uL (0.0-0.4); EOS % 1.2 % (1.0-4.0); HEMATOCRIT 40.6 % (37.0-47.0); LYMPH # 2.1 10*3/uL (1.3-4.4); LYMPH % 29.3 % (27.0-41.0); MEAN CELL VOLUME 89.4 fl (81.0-99.0); MEAN CORPUSCULAR HGB 29.7 pg (27.0-31.0); MEAN CORPUSCULAR HGB CONC 33.3 g/dl (33.0-37.0); MEAN PLATELET VOLUME 9.9 fl (9.6-12.3); MONO # 0.4 10*3/uL (0.1-1.0); MONO % 5.9 % (3.0-9.0); NEUT # 4.6 10*3/uL (2.3-7.9); NEUT % 62.9 % (47.0-73.0); PLATELET COUNT AUTOMATED 237 10*3/uL (130-400); RED BLOOD COUNT 4.54 10*6/uL (4.10-5.10); RED CELL DISTRI WIDTH 13.8 % (0-14.5); WHITE BLOOD COUNT 7.3 10*3/uL (4.8-10.8)
[2020-05-17 14:42] LABS: ALBUMIN 3.2 gm/dl (3.1-4.5); ALKALINE PHOSPHATASE 72 U/L (45-117); BUN 14 mg/dl (7-24); CHLORIDE 110 mmol/L (98-107); CREATININE 0.62 mg/dL (0.55-1.02); POTASSIUM 3.4 mmol/L (3.5-5.1); SGOT/AST 11 IU/L (3-35); SGPT/ALT 21 U/L (12-78); SODIUM 141 mmol/L (136-145); TOTAL PROTEIN 6.3 gm/dL (6.4-8.2)
[2020-05-17 14:44] LABS: BILIRUBIN Negative (Negative); BLOOD Negative (Negative); CLARITY Clear (Clear); COLOR Yellow (Yellow); GLUCOSE Negative (Negative); KETONE Negative (Negative); LEUKO ESTERASE Negative (Negative); NITRITE Negative (Negative); PH 7.5 (4.5-8.0); SPECIFIC GRAVITY 1.015 (1.001-1.030); UROBILINOGEN 0.2 E.U./dl (0.0-1.0)
[2020-05-17 14:57] LABS: BACTERIA TRACE; RBC 0-2 rbc/hpf (0-2); WBC 0-2 wbc/hpf (0-5)
[2020-05-17] MEDS ORDERED: AMOXICILLIN500 M2 PO (16:21)
== END 2020-05-17 16:34 | disposition home or self-care (01) ==
LOC: ED 13:54
PROVIDERS: Nurse Practitioner
DX: E86.0 Dehydration (principal); Z20.828 Contact with and (suspected) exposure to other viral communicable diseases; H66.91 Otitis media, unspecified, right ear; Z90.49 Acquired absence of other specified parts of digestive tract; Z98.890 Other specified postprocedural states; Z90.710 Acquired absence of both cervix and uterus; Z79.899 Other long term (current) drug therapy; Z91.041 Radiographic dye allergy status; Z91.012 Allergy to eggs; Z88.1 Allergy status to other antibiotic agents; Z88.7 Allergy status to serum and vaccine

== ENCOUNTER 2020-11-25 12:13 | Emergency (ER) | payer OTHER ==
[~2020-11-25 12:13] MED LIST changes: +AMOXICILLIN500 M2 PO
[2020-11-25 12:32] VITALS: BP 139/80
[2020-11-25 12:46] LABS: BASO # 0.1 10*3/uL (0.0-0.1); BASO % 0.6 % (0.0-1.0); EOS # 0.1 10*3/uL (0.0-0.4); EOS % 0.8 % (1.0-4.0); HEMATOCRIT 41.8 % (37.0-47.0); LYMPH # 3.3 10*3/uL (1.3-4.4); MEAN CELL VOLUME 88.6 fl (81.0-99.0); MEAN CORPUSCULAR HGB 29.9 pg (27.0-31.0); MEAN CORPUSCULAR HGB CONC 33.7 g/dl (33.0-37.0); MEAN PLATELET VOLUME 10.1 fl (9.6-12.3); MONO # 0.7 10*3/uL (0.1-1.0); MONO % 6.7 % (3.0-9.0); NEUT # 6.2 10*3/uL (2.3-7.9); NEUT % 59.7 % (47.0-73.0); PLATELET COUNT AUTOMATED 270 10*3/uL (130-400); RED BLOOD COUNT 4.72 10*6/uL (4.10-5.10); RED CELL DISTRI WIDTH 14.2 % (0-14.5); WHITE BLOOD COUNT 10.4 10*3/uL (4.8-10.8)
[2020-11-25 13:02] LABS: ALKALINE PHOSPHATASE 71 U/L (45-117); BUN 15 mg/dl (7-24); CHLORIDE 107 mmol/L (98-107); CREATININE 0.82 mg/dL (0.55-1.02); POTASSIUM 3.9 mmol/L (3.5-5.1); SGOT/AST 25 IU/L (3-35); SGPT/ALT 19 U/L (12-78); SODIUM 139 mmol/L (136-145); TOTAL PROTEIN 7.7 gm/dL (6.4-8.2)
[2020-11-25 13:07] LABS: TROPONIN I 0.046 ng/ml (<0.045)
[2020-11-25] MEDS ORDERED: GOOD SENSE NASA30 MG PO (13:26)
[2020-11-25] MEDS ORDERED: NAPROXEN250 MG PO (13:26)
[2020-11-25] MEDS ORDERED: TYLENOL325 M1 PO (13:26)
== END 2020-11-25 13:50 | disposition home or self-care (01) ==
LOC: ED 12:13
PROVIDERS: Emergency Medicine
DX: H65.91 Unspecified nonsuppurative otitis media, right ear (principal); H93.11 Tinnitus, right ear; M54.2 Cervicalgia; F41.9 Anxiety disorder, unspecified; I25.10 Atherosclerotic heart disease of native coronary artery without angina pectoris; J44.9 Chronic obstructive pulmonary disease, unspecified; I25.2 Old myocardial infarction; F31.9 Bipolar disorder, unspecified; M81.0 Age-related osteoporosis without current pathological fracture; G40.909 Epilepsy, unspecified, not intractable, without status epilepticus; F17.210 Nicotine dependence, cigarettes, uncomplicated; Z95.0 Presence of cardiac pacemaker; Z91.041 Radiographic dye allergy status; Z91.012 Allergy to eggs; Z88.8 Allergy status to other drugs, medicaments and biological substances; Z88.1 Allergy status to other antibiotic agents; Z79.899 Other long term (current) drug therapy; Z79.2 Long term (current) use of antibiotics; Z81.0 Family history of intellectual disabilities; Z98.890 Other specified postprocedural states; Z90.711 Acquired absence of uterus with remaining cervical stump; Z90.49 Acquired absence of other specified parts of digestive tract

== ENCOUNTER 2021-05-04 20:58 | Emergency (ER) | payer OTHER ==
[~2021-05-04] VITALS: Ht 160 cm; Wt 68.0 kg
[~2021-05-04 20:58] MED LIST changes: +GOOD SENSE NASA30 MG PO; +TYLENOL325 M1 PO
[2021-05-04 21:22] LABS: BASO # 0.1 10*3/uL (0.0-0.1); BASO % 0.8 % (0.0-1.0); EOS # 0.2 10*3/uL (0.0-0.4); EOS % 2.6 % (1.0-4.0); HEMATOCRIT 39.5 % (37.0-47.0); LYMPH # 2.3 10*3/uL (1.3-4.4); LYMPH % 31.8 % (27.0-41.0); MEAN CELL VOLUME 90.8 fl (81.0-99.0); MEAN CORPUSCULAR HGB 30.3 pg (27.0-31.0); MEAN CORPUSCULAR HGB CONC 33.4 g/dl (33.0-37.0); MEAN PLATELET VOLUME 9.8 fl (9.6-12.3); MONO # 0.7 10*3/uL (0.1-1.0); MONO % 9.8 % (3.0-9.0); NEUT # 3.9 10*3/uL (2.3-7.9); NEUT % 54.7 % (47.0-73.0); PLATELET COUNT AUTOMATED 234 10*3/uL (130-400); RED BLOOD COUNT 4.35 10*6/uL (4.10-5.10); RED CELL DISTRI WIDTH 14.2 % (0-14.5); WHITE BLOOD COUNT 7.2 10*3/uL (4.8-10.8)
[2021-05-04 21:37] LABS: ALBUMIN 3.4 gm/dl (3.1-4.5); ALKALINE PHOSPHATASE 61 U/L (45-117); BUN 17 mg/dl (7-24); CHLORIDE 105 mmol/L (98-107); CREATININE 0.96 mg/dL (0.55-1.02); POTASSIUM 3.1 mmol/L (3.5-5.1); SGOT/AST 24 IU/L (3-35); SGPT/ALT 28 U/L (12-78); SODIUM 136 mmol/L (136-145); TOTAL PROTEIN 6.8 gm/dL (6.4-8.2)
[2021-05-04 21:41] VITALS: BP 125/64
== END 2021-05-04 22:24 | disposition home or self-care (01) ==
LOC: ED 20:58
PROVIDERS: Internal Medicine
DX: B34.9 Viral infection, unspecified (principal); Z20.822 Contact with and (suspected) exposure to COVID-19; E87.6 Hypokalemia; J44.9 Chronic obstructive pulmonary disease, unspecified; M81.0 Age-related osteoporosis without current pathological fracture; Z91.041 Radiographic dye allergy status; Z91.012 Allergy to eggs; Z88.1 Allergy status to other antibiotic agents; Z88.7 Allergy status to serum and vaccine; Z88.8 Allergy status to other drugs, medicaments and biological substances; Z79.899 Other long term (current) drug therapy; Z87.891 Personal history of nicotine dependence; Z90.89 Acquired absence of other organs

== ENCOUNTER 2021-07-25 04:25 | Emergency (ER) | payer OTHER ==
[~2021-07-25] VITALS: Ht 160 cm; Wt 67.1 kg
[2021-07-25 04:47] LABS: BASO % 0.4 % (0.0-1.0); EOS # 0.1 10*3/uL (0.0-0.4); EOS % 0.9 % (1.0-4.0); HEMATOCRIT 40.8 % (37.0-47.0); LYMPH # 1.8 10*3/uL (1.3-4.4); LYMPH % 18.6 % (27.0-41.0); MEAN CELL VOLUME 90.3 fl (81.0-99.0); MEAN CORPUSCULAR HGB 29.9 pg (27.0-31.0); MEAN CORPUSCULAR HGB CONC 33.1 g/dl (33.0-37.0); MEAN PLATELET VOLUME 10.4 fl (9.6-12.3); MONO # 0.7 10*3/uL (0.1-1.0); MONO % 6.7 % (3.0-9.0); NEUT # 7.2 10*3/uL (2.3-7.9); NEUT % 73.2 % (47.0-73.0); PLATELET COUNT AUTOMATED 212 10*3/uL (130-400); RED BLOOD COUNT 4.52 10*6/uL (4.10-5.10); RED CELL DISTRI WIDTH 13.7 % (0-14.5); WHITE BLOOD COUNT 9.9 10*3/uL (4.8-10.8)
[2021-07-25 05:01] LABS: ALKALINE PHOSPHATASE 66 U/L (45-117); BUN 20 mg/dl (7-24); CHLORIDE 107 mmol/L (98-107); CREATININE 0.91 mg/dL (0.55-1.02); LIPASE 101 U/L (73-393); POTASSIUM 4.2 mmol/L (3.5-5.1); SGOT/AST 18 IU/L (3-35); SGPT/ALT 20 U/L (12-78); SODIUM 138 mmol/L (136-145); TOTAL PROTEIN 7.5 gm/dL (6.4-8.2)
[2021-07-25 05:49] LABS: BILIRUBIN Negative (Negative); BLOOD Negative (Negative); CLARITY Clear (Clear); COLOR Yellow (Yellow); GLUCOSE Negative (Negative); KETONE Negative (Negative); LEUKO ESTERASE Negative (Negative); NITRITE Negative (Negative); SPECIFIC GRAVITY 1.015 (1.001-1.030); UROBILINOGEN 0.2 E.U./dl (0.0-1.0)
[2021-07-25 06:16] LABS: RBC 0-2 rbc/hpf (0-2); WBC 0-2 wbc/hpf (0-5)
[2021-07-25 07:04] VITALS: BP 160/70
[2021-07-25] MEDS ORDERED: AUGMENTIN 875-875 MG PO (07:58)
== END 2021-07-25 08:14 | disposition home or self-care (01) ==
LOC: ED 04:25
PROVIDERS: Emergency Medicine
DX: R10.13 Epigastric pain (principal); R10.30 Lower abdominal pain, unspecified; R11.2 Nausea with vomiting, unspecified; F17.200 Nicotine dependence, unspecified, uncomplicated; Z91.041 Radiographic dye allergy status; Z91.012 Allergy to eggs; Z88.1 Allergy status to other antibiotic agents; Z88.8 Allergy status to other drugs, medicaments and biological substances; Z88.7 Allergy status to serum and vaccine; Z79.899 Other long term (current) drug therapy; Z98.890 Other specified postprocedural states; Z90.710 Acquired absence of both cervix and uterus; Z90.49 Acquired absence of other specified parts of digestive tract

== ENCOUNTER 2022-04-14 14:43 | Emergency (ER) | payer OTHER ==
[~2022-04-14] VITALS: Wt 68.0 kg
[2022-04-14 14:44] VITALS: BP 150/80
[2022-04-14 15:24] LABS: BASO % 0.6 % (0.0-1.0); EOS # 0.1 10*3/uL (0.0-0.4); HEMATOCRIT 43.7 % (37.0-47.0); LYMPH # 2.2 10*3/uL (1.3-4.4); LYMPH % 29.9 % (27.0-41.0); MEAN CELL VOLUME 88.6 fl (81.0-99.0); MEAN CORPUSCULAR HGB CONC 33.9 g/dl (33.0-37.0); MEAN PLATELET VOLUME 10.2 fl (9.6-12.3); MONO # 0.6 10*3/uL (0.1-1.0); MONO % 7.8 % (3.0-9.0); NEUT # 4.4 10*3/uL (2.3-7.9); NEUT % 60.6 % (47.0-73.0); PLATELET COUNT AUTOMATED 245 10*3/uL (130-400); RED BLOOD COUNT 4.93 10*6/uL (4.10-5.10); RED CELL DISTRI WIDTH 13.3 % (0-14.5); WHITE BLOOD COUNT 7.2 10*3/uL (4.8-10.8)
[2022-04-14 16:01] LABS: ALKALINE PHOSPHATASE 67 U/L (46-116); BUN 14 mg/dl (9-23); CHLORIDE 106 mmol/L (98-107); CREATININE 0.84 mg/dL (0.55-1.02); POTASSIUM 3.5 mmol/L (3.4-5.1); SGPT/ALT 8 U/L (10-49); TOTAL PROTEIN 7.4 gm/dL (6.0-8.0)
== END 2022-04-14 17:42 | disposition left against medical advice (07) ==
LOC: ED 14:43
PROVIDERS: Student in an Organized Health Care Education/Training Program
DX: R06.02 Shortness of breath (principal); M54.9 Dorsalgia, unspecified; Z91.041 Radiographic dye allergy status; Z91.012 Allergy to eggs; Z88.1 Allergy status to other antibiotic agents; Z88.8 Allergy status to other drugs, medicaments and biological substances; Z88.7 Allergy status to serum and vaccine; Z90.710 Acquired absence of both cervix and uterus; Z90.49 Acquired absence of other specified parts of digestive tract; Z98.890 Other specified postprocedural states; F10.90 Alcohol use, unspecified, uncomplicated; Z87.891 Personal history of nicotine dependence; Z20.822 Contact with and (suspected) exposure to COVID-19

== ENCOUNTER → 2022-06-20 | Outpatient (CLI) | payer OTHER | END | disposition home or self-care (01) | LOC: CT 08:24 | PROVIDERS: ATTEND Surgery | DX: K57.30 Diverticulosis of large intestine without perforation or abscess without bleeding (principal); R10.9 Unspecified abdominal pain ==

== ENCOUNTER → 2022-07-04 | Day surgery (SDC) | payer OTHER ==
[~2022-07-04] VITALS: Ht 160 cm; Wt 68.0 kg
[~2022-07-04] MED LIST changes: +CARAFATE1 G1 PO; +ONDANSETRON HYDR4 M1 PO; +REMERON15 M2 PO
[2022-07-04 06:58] VITALS: BP 129/66
[2022-07-04 07:58] VITALS: BP 129/89
[2022-07-04 08:13] VITALS: BP 113/59
[2022-07-04 08:25] VITALS: BP 105/66
== END | disposition home or self-care (01) ==
LOC: SDC 07-01 12:30
PROVIDERS: ATTEND Surgery
DX: K62.5 Hemorrhage of anus and rectum (principal); K29.50 Unspecified chronic gastritis without bleeding; K62.1 Rectal polyp; K57.30 Diverticulosis of large intestine without perforation or abscess without bleeding; J44.9 Chronic obstructive pulmonary disease, unspecified; F31.9 Bipolar disorder, unspecified; F41.9 Anxiety disorder, unspecified; M81.0 Age-related osteoporosis without current pathological fracture; F17.210 Nicotine dependence, cigarettes, uncomplicated; I10 Essential (primary) hypertension; I25.10 Atherosclerotic heart disease of native coronary artery without angina pectoris; I25.2 Old myocardial infarction; E78.00 Pure hypercholesterolemia, unspecified; Z95.0 Presence of cardiac pacemaker; Z90.710 Acquired absence of both cervix and uterus

== ENCOUNTER 2022-07-16 10:10 | Emergency (ER) | payer OTHER ==
[~2022-07-16] VITALS: Ht 157.4 cm; Wt 71.7 kg
[2022-07-16 10:16] VITALS: BP 103/78
== END 2022-07-16 14:27 | disposition left against medical advice (07) ==
LOC: ED 10:10
DX: M54.32 Sciatica, left side (principal); J44.9 Chronic obstructive pulmonary disease, unspecified; F31.9 Bipolar disorder, unspecified; F41.9 Anxiety disorder, unspecified; M81.0 Age-related osteoporosis without current pathological fracture; I34.1 Nonrheumatic mitral (valve) prolapse; Z91.041 Radiographic dye allergy status; Z88.1 Allergy status to other antibiotic agents; Z88.7 Allergy status to serum and vaccine; Z88.8 Allergy status to other drugs, medicaments and biological substances; Z91.012 Allergy to eggs; Z98.890 Other specified postprocedural states; Z90.49 Acquired absence of other specified parts of digestive tract; Z90.710 Acquired absence of both cervix and uterus; F17.200 Nicotine dependence, unspecified, uncomplicated

== ENCOUNTER 2022-08-02 12:22 | Emergency (ER) | payer OTHER ==
[~2022-08-02] VITALS: Ht 160 cm; Wt 67.1 kg
[2022-08-02 12:35] VITALS: BP 158/85
[2022-08-02] MEDS ORDERED: PENICILLIN VK500 MG PO (15:07)
== END 2022-08-02 15:13 | disposition home or self-care (01) ==
LOC: ED 12:22
DX: S09.93XA Unspecified injury of face, initial encounter (principal); Z91.041 Radiographic dye allergy status; Z88.8 Allergy status to other drugs, medicaments and biological substances; Z88.1 Allergy status to other antibiotic agents; Z88.7 Allergy status to serum and vaccine; Z91.012 Allergy to eggs; Z79.899 Other long term (current) drug therapy; Z90.710 Acquired absence of both cervix and uterus; Z98.890 Other specified postprocedural states; Z90.49 Acquired absence of other specified parts of digestive tract; Z87.891 Personal history of nicotine dependence; W18.39XA Other fall on same level, initial encounter; Y93.89 Activity, other specified; Y92.89 Other specified places as the place of occurrence of the external cause; Y99.8 Other external cause status

== ENCOUNTER 2023-02-20 21:17 | Emergency (ER) | payer OTHER ==
[~2023-02-20] VITALS: Ht 160 cm; Wt 63.5 kg
[2023-02-20 22:43] VITALS: BP 133/72
== END 2023-02-20 23:47 | disposition home or self-care (01) ==
LOC: ED 21:17
DX: M25.551 Pain in right hip (principal); R07.81 Pleurodynia; R10.9 Unspecified abdominal pain; R07.89 Other chest pain; G40.909 Epilepsy, unspecified, not intractable, without status epilepticus; F17.210 Nicotine dependence, cigarettes, uncomplicated; Z85.3 Personal history of malignant neoplasm of breast; Z91.041 Radiographic dye allergy status; Z91.012 Allergy to eggs; Z88.1 Allergy status to other antibiotic agents; Z88.8 Allergy status to other drugs, medicaments and biological substances; Z88.7 Allergy status to serum and vaccine; Z79.899 Other long term (current) drug therapy; Z98.890 Other specified postprocedural states; Z90.49 Acquired absence of other specified parts of digestive tract; Z90.711 Acquired absence of uterus with remaining cervical stump; Z95.0 Presence of cardiac pacemaker; W01.0XXA Fall on same level from slipping, tripping and stumbling without subsequent striking against object, initial encounter; Y93.89 Activity, other specified; Y92.89 Other specified places as the place of occurrence of the external cause; Y99.8 Other external cause status

== ENCOUNTER 2024-05-23 08:41 | Emergency (ER) | payer MEDICARE ==
[~2024-05-23 08:41] MED LIST changes: +METRONIDAZOLE500 M1 PO
== END 2024-05-23 11:08 | disposition left against medical advice (07) ==
LOC: ED 08:41
DX: S69.92XA Unspecified injury of left wrist, hand and finger(s), initial encounter (principal); Z53.21 Procedure and treatment not carried out due to patient leaving prior to being seen by health care provider; Z91.040 Latex allergy status; Z88.7 Allergy status to serum and vaccine; Z88.5 Allergy status to narcotic agent; Z88.1 Allergy status to other antibiotic agents; Z91.012 Allergy to eggs; W19.XXXA Unspecified fall, initial encounter; Y93.89 Activity, other specified; Y92.89 Other specified places as the place of occurrence of the external cause; Y99.8 Other external cause status

== ENCOUNTER → 2025-04-08 | Outpatient (CLI) | payer OTHER ==
[~2025-04-08] MED LIST changes: +AMLODIPINE BES2.5 MG PO; +ASPIRIN ADULT L81 M2 PO; +BUSPIRONE HCL10 MG PO; +CARVEDILOL3.125 MG PO; +DULOXETINE HCL30 MG PO; +Ipratropium Brom3 ML INH
== END | disposition home or self-care (01) ==
LOC: ORTHO 02:41
PROVIDERS: ATTEND Orthopaedic Surgery
DX: S82.252A Displaced comminuted fracture of shaft of left tibia, initial encounter for closed fracture (principal); X58.XXXA Exposure to other specified factors, initial encounter; Y93.89 Activity, other specified; Y92.89 Other specified places as the place of occurrence of the external cause; Y99.8 Other external cause status